=== PATIENT | male | born 1950 | race African-American/Black ===

== ENCOUNTER 2016-08-25 06:46 | Observation (INO) | payer MEDICARE, OTHER ==
[2016-08-25] MEDS ORDERED: ASPIRIN 81 MG TABLET, CHEWABLE PO ONE ×2 (06:56→14:00)
[2016-08-25 08:03] LABS: ABSOLUTE EOSINOPHILS # (AUTO) 0.2 10^3/uL (0.0-0.6); ABSOLUTE LYMPHOCYTES (AUTO) 2.5 10^3/uL (0.5-4.7); ABSOLUTE MONOCYTES (AUTO) 0.6 10^3/uL (0.1-1.4); ABSOLUTE NEUT (AUTO) 4.3 10^3/uL (1.7-8.2); BASOPHILS % (AUTO) 0.3 % (0-2); EOSINOPHILS % (AUTO) 2.7 % (0-6); HEMATOCRIT 39.4 % (37.9-51.0); HEMOGLOBIN 13.4 g/dL (13.5-17.0); HGB HCT DIFFERENCE 0.8; LYMPHOCYTES % (AUTO) 33.2 % (13-45); MEAN CORPUSCULAR HEMOGLOBIN 30.6 pg (27.0-33.4); MEAN CORPUSCULAR HGB CONC 33.9 g/dL (32.0-36.0); MEAN CORPUSCULAR VOLUME 90 fl (80-97); MONOCYTES % (AUTO) 7.6 % (3-13); RED BLOOD COUNT 4.37 10^6/uL (4.35-5.55); RED CELL DISTRIBUTION WIDTH 12.9 % (11.5-14.0); SEGMENTED NEUTROPHILS % (AUTO) 56.2 % (42-78); WHITE BLOOD COUNT 7.6 10^3/uL (4.0-10.5)
[2016-08-25 08:07] LABS: PROTHROMBIN TIME 12.5 SEC (11.4-15.4)
[2016-08-25 08:20] LABS: ALANINE AMINOTRANSFERASE 53 U/L (21-72); ALBUMIN 3.2 g/dL (3.5-5.0); ALKALINE PHOSPHATASE 127 U/L (38-126); ANION GAP 9 (5-19); ASPARTATE AMINO TRANSFERASE 24 U/L (17-59); BLOOD UREA NITROGEN 17 mg/dL (7-20); CALCIUM 9.8 mg/dL (8.4-10.2); CARBON DIOXIDE 26 mmol/L (22-30); CHLORIDE 104 mmol/L (98-107); CREATINE KINASE 103 U/L (55-170); CREATININE RESULT 0.99 mg/dL (0.52-1.25); GLUCOSE 228 mg/dL (75-110); LIPASE 592.2 U/L (23-300); POTASSIUM 4.2 mmol/L (3.6-5.0); SODIUM 139.4 mmol/L (137-145); TOTAL PROTEIN 6.5 g/dL (6.3-8.2)
[2016-08-25 08:31] LABS: CREATINE KINASE MB 1.44 ng/mL (<4.55); TROPONIN I 0.03 ng/mL
--- NOTE | 2016-08-25 08:42 | ER Document Report ---
ED Cardiac - General Chief Complaint: Chest Pain Stated Complaint: CHEST PAIN Mode of Arrival: Ambulatory Information source: Patient Notes: 65 y/o M presents to ED c/o chest pain. Pt reports non-provoked, sharp pain to left upper chest radiating down to left upper abdomen and across to right upper abdomen. States pain began 3 days ago but worsened this morning when it woke him up from sleep. Denies aggravating or relieving factors. Reports associated mild sob. Pt states had stress test approximately 3 months ago which he states was normal. Reports previous hx of PE and states took Plavix for 4 yrs but is currently only on daily ASA. Denies fever, n/v, hemoptysis, diaphoresis. TRAVEL OUTSIDE OF THE [place] IN LAST 30 DAYS: No - HPI Patient complains to provider of: Chest pain Was the onset of pain: Gradual Is the pain a: New problem Severity now: None Severity at worst: Moderate Pain level currently: Denies Chest pain precipitating factors: At Rest Cardiac risk factors: Diabetes, Hypertension, Hx [place] Positive cardiac history: Yes Exacerbated by: Denies Relieved by: Nothing Similar symptoms previously: Yes Recently seen / treated by doctor: No - Related Data Allergies/Adverse Reactions: No Known Allergies Allergy (Verified 08/25/16 06:48) Home Medications: Current Home Medications Empagliflozin [Jardiance] 25 mg PO DAILY 08/25/16 [History] Pregabalin [Lyrica 100 mg Capsule] 100 mg PO BID 08/25/16 [History] Past Medical History - General Information source: Patient - Social History Smoking Status: Never Smoker Frequency of alcohol use: Rare Drug Abuse: None Lives with: Family Family History: DM, Malignancy - Past Medical History Cardiac Medical History: Reports: Hx Congestive Heart Failure, Hx Heart Attack - mid 1989, Hx Hypercholesterolemia, Hx Hypertension - on meds Denies: Hx Atrial Fibrillation, Hx Coronary Artery Disease, Hx Peripheral Vascular Disease, Hx Heart Murmur Pulmonary Medical History: Reports: Hx Sleep Apnea Denies: Hx Asthma, Hx Bronchitis, Hx COPD - sleep apnea/cpap, Hx Pneumonia, Hx Tuberculosis Neurological Medical History: Denies: Hx Cerebrovascular Accident, Hx Seizures Endocrine Medical History: Reports: Hx Diabetes Mellitus Type 1, Hx Diabetes Mellitus Type 2, Hx Hypothyroidism. Denies: Hx Graves' Disease, Hx Hyperthyroidism Renal/ Medical History: Denies: Hx Benign Prostatic Hyperplasia, Hx End Stage Renal Disease, Hx Kidney Stones, Hx Peritoneal Dialysis GI Medical History: Denies: Hx Crohn's Disease, Hx Gastroesophageal Reflux Disease, Hx Hiatal Hernia, Hx Irritable Bowel, Hx Liver Failure, Hx Ulcer Musculoskeltal Medical History: Denies Hx Arthritis, Denies Hx Fibromyalgia, Denies Hx Multiple Sclerosis, Denies Hx Muscular Dystrophy Psychiatric Medical History: Denies: Hx Dementia, Hx Depression Traumatic Medical History: Denies: Hx Fractures Past Surgical History: Reports: Hx Cardiac Catheterization, Hx Cardiac Surgery - cath, Hx Cholecystectomy, Hx Orthopedic Surgery - right knee. Denies: Hx Colostomy, Hx Pacemaker - Immunizations Immunizations up to date: Yes Hx Diphtheria, Pertussis, Tetanus Vaccination: Yes Review of Systems - Review of Systems Constitutional: No symptoms reported EENT: No symptoms reported Cardiovascular: See HPI Respiratory: See HPI Gastrointestinal: See HPI Genitourinary: No symptoms reported Male Genitourinary: No symptoms reported Musculoskeletal: No symptoms reported Skin: No symptoms reported Hematologic/Lymphatic: No symptoms reported Neurological/Psychological: No symptoms reported -: Yes All other systems reviewed and negative Physical Exam - Vital signs Vitals: Temp Pulse BP Pulse Ox 97.9 F 74 144/82 H 95 08/25/16 06:58 08/25/16 06:58 08/25/16 06:58 08/25/16 06:58 Interpretation: Normal - General General appearance: Appears well, Alert In distress: None - HEENT Head: Normocephalic, Atraumatic Eyes: Normal Pupils: PERRL - Respiratory Respiratory status: No respiratory distress Chest status: Nontender Breath sounds: Normal - CTAB Chest palpation: Normal - Cardiovascular Rhythm: Regular Heart sounds: Normal auscultation Murmur: No Pulses: Normal: Radial, Posterior tibial, Dorsalis pedis Normal capillary refill: Yes - Abdominal Inspection: Normal Distension: No distension Bowel sounds: Normal Tenderness: Tender - Mild tenderness to palpation to left and mid upper abdominal area.. No: McBurney's point, Warner's sign, Guarding, Rebound, Other Organomegaly: No organomegaly - Back Back: Normal, Nontender - Extremities General upper extremity: Normal inspection, Nontender, Normal color, Normal ROM , Normal temperature General lower extremity: Normal inspection, Nontender, Normal color, Normal ROM , Normal temperature, Normal weight bearing. No: Reji's sign - Neurological Neuro grossly intact: Yes Cognition: Normal Orientation: AAOx4 [place] Coma Scale Eye Opening: Spontaneous [place] Coma Scale Verbal: Oriented [place] Coma Scale Motor: Obeys Commands [place] Coma Scale Total: 15 Speech: Normal Motor strength normal: LUE, RUE, LLE, RLE Sensory: Normal - Psychological Associated symptoms: Normal affect, Normal mood - Skin Skin Temperature: Warm Skin Moisture: Dry Skin Color: Normal Skin Turgor: Elastic Course - Re-evaluation Re-evalutation: 08/25/16 11:00 Patient hemodynamically stable, in no distress. Patient presentation and findings discussed with patient's primary care provider Dr. Mendoza who agrees to assume care and admit to [facility] at this time. Findings and plan discussed with patient and who verbalized understanding and agree with plan. - Vital Signs Vital signs: Temp Pulse Resp BP Pulse Ox 97.5 F 74 18 158/92 H 94 08/25/16 12:52 08/25/16 06:58 08/25/16 12:52 08/25/16 12:52 08/25/16 12:52 - Laboratory Result Diagrams: 08/25/16 07:52 08/25/16 07:52 Laboratory results interpreted by me: 08/25/16 08/25/16 07:52 07:52 Hgb 13.4 L Glucose 228 H Alkaline Phosphatase 127 H Albumin 3.2 L Lipase 592.2 H - Diagnostic Test Radiology reviewed: Image reviewed, Reports reviewed - EKG Interpretation by Hi EKG shows normal: Sinus rhythm, [place], Intervals, QRS Complexes Rate: Normal Rhythm: NSR, APC's [place]/QRS: RBBB When compared to previous EKG there are: No significant change Discharge - Discharge Clinical Impression: Chest pain Qualifiers: Chest pain type: other chest pain Qualified Code(s): R07.89 - Other chest pain Condition: Stable Disposition: ADMITTED INPATIENT Admitting Provider: Reji Unit Admitted: [facility]
--- NOTE | 2016-08-25 10:21 | EKG REPORT ---
SEVERITY:- ABNORMAL ECG - SINUS RHYTHM MULTIPLE ATRIAL PREMATURE COMPLEXES RIGHT BUNDLE BRANCH BLOCK : Confirmed by: Nanci Centeno 25-Aug-2016 10:20:41
[2016-08-25] MEDS ORDERED: DEXTROSE 5%-NORMAL SALINE 1,000 ML IV PRN (13:17)
[2016-08-25] MEDS ORDERED: PREGABALIN 100 MG CAPSULE PO SCH (13:30)
[2016-08-25] MEDS ORDERED: (PENDING PHARMACY ID) (Alogliptin Benz/Pioglitazone [Oseni 25-30 Mg Tablet] 1 TAB) PO SCH (13:30)
[2016-08-25] MEDS ORDERED: INSULIN DETEMIR 100 UNIT/ML 3 ML PEN SUBCUT SCH (13:30)
[2016-08-25] MEDS ORDERED: ASPIRIN 81 MG TABLET, CHEWABLE PO SCH (13:30)
[2016-08-25] MEDS ORDERED: (PENDING PHARMACY ID) (Cholecalciferol (Vitamin D3) [Vitamin D3] 50,000 UNIT) PO SCH (13:30)
[2016-08-25] MEDS ORDERED: (PENDING PHARMACY ID) (Levothyroxine Sodium [Synthroid] 300 MCG) PO SCH (13:30)
--- NOTE | 2016-08-25 13:50 | PDOC H&P ---
History of Present Illness Admission Date/PCP: 08/25/16 11:18 RADHA BROOKS, History of Present Illness: HASEEB YAO JR is a 65 year old male, he came to the emergency room because of 3- day history of chest pain, the chest pain is not provoked by activity or emotion and it is not relieved by rest, the chest pain is nondescript, there was involvement of the upper abdomen. the upper abdominal pain was aggravated with food and water intake , because of the aggravation of the abdominal pain with food intake. He came to emergency room for evaluation of his symptoms. In the emergency room he was evaluated, CT chest was done it was negative for any pulmonary emboli. There is no infiltrate, pneumothorax found on the CTA, he was also found to have elevated serum lipase. CT scan of the abdomen and pelvis was done and it was negative for any acute pathology. Patient have no gallbladder and he does not drink alcohol, his symptoms is more consistent with acute pancreatitis and the most likely etiologies is medication. He will be admitted to the hospital for observation and management of his symptoms. Past Medical History Cardiac Medical History: Reports: Hyperlipidema, Hypertension - on meds Pulmonary Medical History: Reports: Sleep Apnea Endocrine Medical History: Reports: Diabetes Mellitus Type 2, Hypothyroidism, Obesity Past Surgical History Past Surgical History: Reports: Cardiac Catheterization, Cholecystectomy, Orthopedic Surgery - right knee Social History Information Source: Parent Lives with: Family Smoking Status: Never Smoker Frequency of Alcohol Use: None Hx Recreational Drug Use: No Hx Prescription Drug Abuse: No - Advance Directive Resuscitation Status: Full Code Family History Family History: DM, Malignancy Parental Family History Reviewed: Yes Children Family History Reviewed: Yes Sibling(s) Family History Reviewed.: Yes Medication/Allergy Home Medications: Atorvastatin Calcium [Lipitor 80 mg Tablet] 80 mg PO QHS 12/14/11 Aspirin [Aspirin 81 mg Chewable Tablet] 81 mg PO DAILY 12/31/11 Cyanocobalamin (Vitamin B-12) [Cyanocobalamin] 1 mg IJ Q30D 12/31/11 Insulin Detemir [Levemir Insulin 100 units/mL] 25 units SQ QAM 12/31/11 Levothyroxine Sodium [Synthroid] 300 mcg PO DAILY 09/29/12 Carvedilol [Coreg 25 mg Tablet] 25 mg PO Q12 07/20/13 Cholecalciferol (Vitamin D3) [Vitamin D3] 50,000 unit PO ASDIR 07/20/13 Furosemide [Lasix 40 mg Tablet] 40 mg PO DAILY 07/20/13 Alogliptin Rogelio/Pioglitazone [Oseni 25-30 mg Tablet] 1 tab PO DAILY 10/17/13 Empagliflozin [Jardiance] 25 mg PO DAILY 08/25/16 Pregabalin [Lyrica 100 mg Capsule] 100 mg PO BID 08/25/16 Allergies/Adverse Reactions: No Known Allergies Allergy (Verified 08/25/16 06:48) Review of Systems Constitutional: ABSENT: chills, fever(s), headache(s), weight gain, weight loss Eyes: ABSENT: visual disturbances Ears: ABSENT: hearing changes Cardiovascular: PRESENT: chest pain. ABSENT: dyspnea on exertion, edema, orthropnea, palpitations Respiratory: ABSENT: cough, hemoptysis Gastrointestinal: PRESENT: abdominal pain, nausea. ABSENT: constipation, diarrhea, hematemesis, hematochezia, vomiting Genitourinary: ABSENT: dysuria, hematuria Musculoskeletal: ABSENT: joint swelling Integumentary: ABSENT: rash, wounds Neurological: ABSENT: abnormal gait, abnormal speech, confusion, dizziness, focal weakness, syncope Psychiatric: ABSENT: anxiety, depression, homidical ideation, suicidal ideation Endocrine: ABSENT: cold intolerance, heat intolerance, menstrual abnormalities, polydipsia, polyuria Hematologic/Lymphatic: ABSENT: easy bleeding, easy bruising, lymphadenopathy Physical Exam Vital Signs: Temp Pulse Resp BP Pulse Ox 97.5 F 74 18 158/92 H 94 08/25/16 12:52 08/25/16 06:58 08/25/16 12:52 08/25/16 12:52 08/25/16 12:52 Intake & Output 08/24/16 08/25/16 08/26/16 06:59 06:59 06:59 Weight 120.2 kg General appearance: PRESENT: no acute distress, well-developed, well-nourished Head exam: PRESENT: atraumatic, normocephalic Eye exam: PRESENT: conjunctiva pink, EOMI, PERRLA. ABSENT: scleral icterus Ear exam: PRESENT: normal external ear exam Mouth exam: PRESENT: moist, tongue midline Neck exam: PRESENT: full ROM Cardiovascular exam: PRESENT: RRR, +S1, +S2 Pulses: PRESENT: +2 pedal pulses bilateral Vascular exam: PRESENT: normal capillary refill GI/Abdominal exam: PRESENT: normal bowel sounds, soft, tenderness - There is upper abdominal tenderness on deep palpation of the abdomen Rectal exam: PRESENT: deferred Neurological exam: PRESENT: alert, awake, oriented to person, oriented to place , oriented to time, oriented to situation, CN II-XII grossly intact Psychiatric exam: PRESENT: appropriate affect, normal mood Skin exam: PRESENT: dry, intact, warm Results Impressions: Chest X-Ray 08/25/16 06:56 IMPRESSION: NO ACUTE RADIOGRAPHIC FINDING IN THE CHEST. Abdomen/Pelvis CT 08/25/16 07:38 IMPRESSION: No acute abnormality in the abdomen or pelvis. Chest/Abdomen CTA 08/25/16 07:38 IMPRESSION: No PE. Assessment & Plan - Diagnosis (1) Acute pancreatitis Qualifiers: Pancreatitis type: unspecified pancreatitis type Acute pancreatitis complication: unspecified Qualified Code(s): K85.90 - Acute pancreatitis without necrosis or infection, unspecified Is this a current diagnosis for this admission?: YesPlan: Patient symptoms and signs is more consistent with acute pancreatitis, he'll be kept nothing by mouth, we will continue to monitor the pancreas enzymes, lipase , we will treat with intravenous fluids. 5% dextrose normal saline at 100 mL per hour (2) Chest pain Qualifiers: Chest pain type: other chest pain Qualified Code(s): R07.89 - Other chest pain; R07.8 - Other chest pain Is this a current diagnosis for this admission?: YesPlan: The chest pain is most likely non-cardiac chest pain. It is more consistent with symptom from the pancreas, so far 2 sets of cardiac enzymes are negative for acute [place], 1 set is pending (3) Hypothyroidism Qualifiers: Hypothyroidism type: unspecified Qualified Code(s): E03.9 - Hypothyroidism, unspecified Is this a current diagnosis for this admission?: YesPlan: He will continue his present medication including Synthroid and other medications by mouth
[2016-08-25] MEDS ORDERED: ENOXAPARIN SODIUM INJ 40 MG/0.4 ML DISP.SYRIN SUBCUT ONE (15:00)
[2016-08-25] MEDS ORDERED: INSULIN DETEMIR 100 UNIT/ML 3 ML PEN SUBCUT ONE (15:00)
[2016-08-25] MEDS ORDERED: LEVOTHYROXINE SODIUM 0.15 MG TABLET PO ONE (15:00)
[2016-08-25] MEDS ORDERED: LEVOTHYROXINE SODIUM 0.025 MG TABLET PO ONE (15:00)
[2016-08-25] MEDS ORDERED: FUROSEMIDE 40 MG TABLET PO ONE (15:00)
[2016-08-25] MEDS ORDERED: PREGABALIN 100 MG CAPSULE PO ONE (15:00)
[2016-08-25] MEDS ORDERED: CARVEDILOL 12.5 MG TABLET PO ONE (15:00)
[2016-08-25 15:08] LABS: CREATINE KINASE MB 1.46 ng/mL (<4.55); TROPONIN I 0.028 ng/mL
[2016-08-25 15:27] LABS: THYROID STIMULATING HORMONE 7.42 uIU/mL (0.47-4.68)
[2016-08-25 18:25] LABS: APPEARANCE,URINE CLEAR; BILIRUBIN,URINE NEGATIVE (NEGATIVE); GLUCOSE, URINE >=500 mg/dL (NEGATIVE); KETONES,URINE NEGATIVE (NEGATIVE); LEUKOCYTE ESTERASE,URINE NEGATIVE (NEGATIVE); NITRITE,URINE NEGATIVE (NEGATIVE); PROTEIN,URINE 30 mg/dL (NEGATIVE); URINE SPECIFIC GRAVITY 1.043; UROBILINOGEN,URINE NEGATIVE mg/dL (<2.0)
[2016-08-25 21:04] LABS: CREATINE KINASE MB 1.17 ng/mL (<4.55); TROPONIN I 0.024 ng/mL
[2016-08-25] MEDS ORDERED: ATORVASTATIN CALCIUM 80 MG TABLET PO SCH (22:00)
[2016-08-25] MEDS: CARVEDILOL 12.5 MG TABLET PO SCH (22:33)
[2016-08-25] MEDS: PREGABALIN 100 MG CAPSULE PO SCH (22:34)
[2016-08-26 03:08] LABS: ABSOLUTE EOSINOPHILS # (AUTO) 0.2 10^3/uL (0.0-0.6); ABSOLUTE LYMPHOCYTES (AUTO) 2.5 10^3/uL (0.5-4.7); ABSOLUTE MONOCYTES (AUTO) 0.5 10^3/uL (0.1-1.4); ABSOLUTE NEUT (AUTO) 2.9 10^3/uL (1.7-8.2); BASOPHILS % (AUTO) 0.4 % (0-2); EOSINOPHILS % (AUTO) 3.9 % (0-6); HEMATOCRIT 38.4 % (37.9-51.0); HEMOGLOBIN 12.8 g/dL (13.5-17.0); LYMPHOCYTES % (AUTO) 40.4 % (13-45); MEAN CORPUSCULAR HEMOGLOBIN 30.4 pg (27.0-33.4); MEAN CORPUSCULAR HGB CONC 33.4 g/dL (32.0-36.0); MEAN CORPUSCULAR VOLUME 91 fl (80-97); MONOCYTES % (AUTO) 8.8 % (3-13); RED BLOOD COUNT 4.21 10^6/uL (4.35-5.55); RED CELL DISTRIBUTION WIDTH 12.8 % (11.5-14.0); SEGMENTED NEUTROPHILS % (AUTO) 46.5 % (42-78); WHITE BLOOD COUNT 6.2 10^3/uL (4.0-10.5)
[2016-08-26 03:29] LABS: ALANINE AMINOTRANSFERASE 46 U/L (21-72); ALBUMIN 2.8 g/dL (3.5-5.0); ALKALINE PHOSPHATASE 114 U/L (38-126); AMYLASE 58 U/L (30-110); ANION GAP 7 (5-19); ASPARTATE AMINO TRANSFERASE 23 U/L (17-59); BILIRUBIN,TOTAL 1.2 mg/dL (0.2-1.3); BLOOD UREA NITROGEN 14 mg/dL (7-20); CALCIUM 9.6 mg/dL (8.4-10.2); CARBON DIOXIDE 27 mmol/L (22-30); CHLORIDE 107 mmol/L (98-107); CREATINE KINASE 57 U/L (55-170); CREATININE RESULT 0.89 mg/dL (0.52-1.25); GLUCOSE 203 mg/dL (75-110); LIPASE 327.8 U/L (23-300); POTASSIUM 4.2 mmol/L (3.6-5.0); SODIUM 140.5 mmol/L (137-145); TOTAL PROTEIN 5.9 g/dL (6.3-8.2)
[2016-08-26 03:39] LABS: CREATINE KINASE MB 0.73 ng/mL (<4.55); TROPONIN I 0.02 ng/mL
[2016-08-26] MEDS ORDERED: ENOXAPARIN SODIUM INJ 40 MG/0.4 ML DISP.SYRIN SUBCUT SCH (08:00)
[2016-08-26] MEDS ORDERED: INSULIN DETEMIR 100 UNIT/ML 3 ML PEN SUBCUT SCH (08:00)
--- NOTE | 2016-08-26 08:27 | EKG REPORT ---
SEVERITY:- ABNORMAL ECG - SINUS RHYTHM MULTIPLE ATRIAL PREMATURE COMPLEXES RIGHT BUNDLE BRANCH BLOCK INFERIOR INFARCT, AGE INDETERMINATE : Confirmed by: Nanci Centeno 26-Aug-2016 08:25:58
[2016-08-26] MEDS ORDERED: ASPIRIN 81 MG TABLET, CHEWABLE PO SCH (10:00)
[2016-08-26] MEDS ORDERED: FUROSEMIDE 40 MG TABLET PO SCH (10:00)
[2016-08-26] MEDS ORDERED: (PENDING PHARMACY ID) (Empagliflozin [Jardiance] 25 MG) PO SCH (10:00)
[2016-08-26] MEDS ORDERED: LEVOTHYROXINE SODIUM 0.025 MG TABLET PO SCH (10:00)
[2016-08-26] MEDS ORDERED: LEVOTHYROXINE SODIUM 0.15 MG TABLET PO SCH (10:00)
[2016-08-26] MEDS: CARVEDILOL 12.5 MG TABLET PO SCH (10:30)
[2016-08-26] MEDS: PREGABALIN 100 MG CAPSULE PO SCH (10:31)
[2016-08-26 13:41] VITALS: BP 158/92
--- NOTE | 2016-08-26 13:47 | PDOC DISCHARGE SUMMARY ---
General - Admit/Disc Date/PCP Admission Date/Primary Care Provider: 08/25/16 12:39 RADHA BROOKS, Discharge Date: 08/26/16 - Discharge Diagnosis (1) Acute pancreatitis Is this a current diagnosis for this admission?: Yes (2) Chest pain Is this a current diagnosis for this admission?: Yes (3) Hypothyroidism Is this a current diagnosis for this admission?: Yes - Additional Information Resuscitation Status: Full Code Discharge Activity: Activity As Tolerated, Balance Activity w/Rest Home Medications: Atorvastatin Calcium [Lipitor 80 mg Tablet] 80 mg PO QHS 12/14/11 Aspirin [Aspirin 81 mg Chewable Tablet] 81 mg PO DAILY 12/31/11 Cyanocobalamin (Vitamin B-12) [Cyanocobalamin] 1 mg IJ Q30D 12/31/11 Insulin Detemir [Levemir Insulin 100 units/mL] 25 units SQ QAM 12/31/11 Levothyroxine Sodium [Synthroid] 325 mcg PO DAILY 09/29/12 Carvedilol [Coreg 25 mg Tablet] 25 mg PO Q12 07/20/13 Cholecalciferol (Vitamin D3) [Vitamin D3] 50,000 unit PO ASDIR 07/20/13 Furosemide [Lasix 40 mg Tablet] 40 mg PO DAILY 07/20/13 Alogliptin Rogelio/Pioglitazone [Oseni 25-30 mg Tablet] 1 tab PO DAILY 10/17/13 Empagliflozin [Jardiance] 25 mg PO DAILY 08/25/16 Pregabalin [Lyrica 100 mg Capsule] 100 mg PO BID 08/25/16 History of Present Illness History of Present Illness: AHSEEB YAO JR is a 65 year old male, he came to the emergency room because of 3- day history of chest pain, the chest pain is not provoked by activity or emotion and it is not relieved by rest, the chest pain is nondescript, there was involvement of the upper abdomen. the upper abdominal pain was aggravated with food and water intake , because of the aggravation of the abdominal pain with food intake. He came to emergency room for evaluation of his symptoms. In the emergency room he was evaluated, CT chest was done it was negative for any pulmonary emboli. There is no infiltrate, pneumothorax found on the CTA, he was also found to have elevated serum lipase. CT scan of the abdomen and pelvis was done and it was negative for any acute pathology. Patient have no gallbladder and he does not drink alcohol, his symptoms is more consistent with acute pancreatitis and the most likely etiologies is medication. He will be admitted to the hospital for observation and management of his symptoms. Hospital Course Hospital Course: Patient was admitted for observation because of abdominal pain and chest pain due to acute pancreatitis, on admission, the serum lipase was 592, this serum lipase today's 327, which is near normal. He was kept nothing by mouth for 24 hours and he was treated with IV fluids. 5% dextrose normal saline. Physical Exam Vital Signs: Temp Pulse Resp BP Pulse Ox 98.0 F 64 20 158/92 H 91 L 08/26/16 13:39 08/26/16 13:39 08/26/16 13:39 08/26/16 13:39 08/26/16 13:39 Intake & Output 08/25/16 08/26/16 08/27/16 06:59 06:59 06:59 Intake Total 1880 0 Output Total 500 Balance 1380 0 Weight 111.2 kg General appearance: PRESENT: no acute distress Head exam: PRESENT: atraumatic, normocephalic Eye exam: PRESENT: PERRLA Mouth exam: PRESENT: moist Neck exam: PRESENT: full ROM Respiratory exam: PRESENT: clear to auscultation sharlene Cardiovascular exam: PRESENT: RRR, +S1, +S2 GI/Abdominal exam: PRESENT: normal bowel sounds, soft Rectal exam: PRESENT: deferred Neurological exam: PRESENT: alert, awake, oriented to person, oriented to place , oriented to time, oriented to situation, CN II-XII grossly intact Psychiatric exam: PRESENT: appropriate affect, normal mood Skin exam: PRESENT: dry, intact, warm Results Laboratory Results: 08/26/16 03:00 08/26/16 03:00 08/25/16 08/25/16 08/25/16 14:23 14:23 16:30 WBC RBC Hgb Hct MCV MCH MCHC RDW Plt Count Seg Neutrophils % Lymphocytes % Monocytes % Eosinophils % Basophils % Absolute Neutrophils Absolute Lymphocytes Absolute Monocytes Absolute Eosinophils Absolute Basophils Sodium Potassium Chloride Carbon Dioxide Anion Gap BUN Creatinine Est GFR ( Amer) Est GFR (Non-Af Amer) Glucose Calcium Total Bilirubin AST ALT Alkaline Phosphatase Ammonia < 8.7 L Total Protein Albumin Amylase Lipase TSH 7.42 H Free T4 0.45 L Urine Color STRAW Urine Appearance CLEAR Urine pH 6.0 Ur Specific [place] 1.043 Urine Protein 30 H Urine Glucose (UA) >=500 H Urine Ketones NEGATIVE Urine Blood NEGATIVE Urine Nitrite NEGATIVE Ur Leukocyte Esterase NEGATIVE Urine WBC (Auto) 1 08/26/16 08/26/16 03:00 03:00 WBC 6.2 RBC 4.21 L Hgb 12.8 L Hct 38.4 MCV 91 MCH 30.4 MCHC 33.4 RDW 12.8 Plt Count 219 Seg Neutrophils % 46.5 Lymphocytes % 40.4 Monocytes % 8.8 Eosinophils % 3.9 Basophils % 0.4 Absolute Neutrophils 2.9 Absolute Lymphocytes 2.5 Absolute Monocytes 0.5 Absolute Eosinophils 0.2 Absolute Basophils 0.0 Sodium 140.5 Potassium 4.2 Chloride 107 Carbon Dioxide 27 Anion Gap 7 BUN 14 Creatinine 0.89 Est GFR ( Amer) > 60 Est GFR (Non-Af Amer) > 60 Glucose 203 H Calcium 9.6 Total Bilirubin 1.2 AST 23 ALT 46 Alkaline Phosphatase 114 Ammonia Total Protein 5.9 L Albumin 2.8 L Amylase 58 Lipase 327.8 H TSH Free T4 Urine Color Urine Appearance Urine pH Ur Specific [place] Urine Protein Urine Glucose (UA) Urine Ketones Urine Blood Urine Nitrite Ur Leukocyte Esterase Urine WBC (Auto) 08/25/16 08/25/16 08/25/16 14:23 14:23 20:19 Creatine Kinase 86 74 CK-MB (CK-2) 1.46 Troponin I 0.028 NT-Pro-B Natriuret Pep 30 08/25/16 08/26/16 08/26/16 20:19 03:00 03:00 Creatine Kinase 57 CK-MB (CK-2) 1.17 0.73 Troponin I 0.024 0.020 NT-Pro-B Natriuret Pep Impressions: Chest X-Ray 08/25/16 06:56 IMPRESSION: NO ACUTE RADIOGRAPHIC FINDING IN THE CHEST. Abdomen/Pelvis CT 08/25/16 07:38 IMPRESSION: No acute abnormality in the abdomen or pelvis. Chest/Abdomen CTA 08/25/16 07:38 IMPRESSION: No PE.
[2016-08-27] MEDS ORDERED: ERGOCALCIFEROL (VITAMIN D2) 50000 UNIT (1.25 MG) CAPSULE PO SCH (10:00)
[2016-08-27] MEDS ORDERED: (PENDING PHARMACY ID) (Cholecalciferol (Vitamin D3) [Vitamin D3] 50,000 UNIT) PO SCH (13:46)
[2016-08-28 15:01] LABS: URINE BARBITURATES SCREEN NEGATIVE; URINE METHADONE SCREEN NEGATIVE; URINE PHENCYCLIDINE SCREEN NEGATIVE
[2016-09-20] MEDS ORDERED: CYANOCOBALAMIN (VITAMIN B-12) INJ 1000 MCG/1 ML VIAL IM SCH (14:00)
== END 2016-08-26 14:44 | disposition home or self-care (01) ==
LOC: ER 06:46 → UNDOADMIN 11:18 → EH 11:18 → 3S 12:31 → INTOOBSV 12:39 → 3S 12:39 → EH 12:39
PROVIDERS: ADMIT Internal Medicine; ATTEND Internal Medicine
DX: K85.90 Acute pancreatitis without necrosis or infection, unspecified (principal); R07.9 Chest pain, unspecified; E03.9 Hypothyroidism, unspecified; E78.5 Hyperlipidemia, unspecified; I10 Essential (primary) hypertension; G47.30 Sleep apnea, unspecified; E11.9 Type 2 diabetes mellitus without complications; E66.9 Obesity, unspecified; Z68.39 Body mass index [BMI] 39.0-39.9, adult; Z79.4 Long term (current) use of insulin
CPT/HCPCS: 93005 ×2; 99285; 36415 ×2; 87040; 87086; 84439; 82553 ×2; 82962 ×2; 82140; 82150; 82550 ×2; 83690 ×2; 83735; 84443; 85025 ×2; 85610; 80076; 80048; 80053; 81001; 84484 ×2; 80307; 83036; 83880; 71010; 71275; 74177; 93010; G0378 ×2; A9270 ×14; J1650 ×2; J1815

== ENCOUNTER 2016-09-02 23:59 | Emergency (ER) | payer MEDICARE, OTHER ==
[2016-09-03 01:38] LABS: ABSOLUTE EOSINOPHILS # (AUTO) 0.2 10^3/uL (0.0-0.6); ABSOLUTE LYMPHOCYTES (AUTO) 2.7 10^3/uL (0.5-4.7); ABSOLUTE MONOCYTES (AUTO) 0.7 10^3/uL (0.1-1.4); ABSOLUTE NEUT (AUTO) 5.9 10^3/uL (1.7-8.2); BASOPHILS % (AUTO) 0.4 % (0-2); EOSINOPHILS % (AUTO) 2.1 % (0-6); HEMATOCRIT 41.5 % (37.9-51.0); HEMOGLOBIN 13.3 g/dL (13.5-17.0); HGB HCT DIFFERENCE -1.6; LYMPHOCYTES % (AUTO) 28.3 % (13-45); MEAN CORPUSCULAR HEMOGLOBIN 29.6 pg (27.0-33.4); MEAN CORPUSCULAR HGB CONC 32.1 g/dL (32.0-36.0); MEAN CORPUSCULAR VOLUME 92 fl (80-97); MONOCYTES % (AUTO) 7.5 % (3-13); RED BLOOD COUNT 4.51 10^6/uL (4.35-5.55); RED CELL DISTRIBUTION WIDTH 13.3 % (11.5-14.0); SEGMENTED NEUTROPHILS % (AUTO) 61.7 % (42-78); WHITE BLOOD COUNT 9.5 10^3/uL (4.0-10.5)
[2016-09-03 02:05] LABS: APPEARANCE,URINE CLEAR; BILIRUBIN,URINE NEGATIVE (NEGATIVE); GLUCOSE, URINE >=500 mg/dL (NEGATIVE); KETONES,URINE NEGATIVE (NEGATIVE); LEUKOCYTE ESTERASE,URINE NEGATIVE (NEGATIVE); NITRITE,URINE NEGATIVE (NEGATIVE); PROTEIN,URINE 100 mg/dL (NEGATIVE); URINE SPECIFIC GRAVITY 1.031
[2016-09-03 02:06] LABS: ALANINE AMINOTRANSFERASE 47 U/L (21-72); ALBUMIN 3.4 g/dL (3.5-5.0); ALKALINE PHOSPHATASE 127 U/L (38-126); ANION GAP 10 (5-19); ASPARTATE AMINO TRANSFERASE 35 U/L (17-59); BILIRUBIN,TOTAL 1.2 mg/dL (0.2-1.3); BLOOD UREA NITROGEN 19 mg/dL (7-20); CALCIUM 10.2 mg/dL (8.4-10.2); CARBON DIOXIDE 26 mmol/L (22-30); CHLORIDE 105 mmol/L (98-107); CREATININE RESULT 0.86 mg/dL (0.52-1.25); GLUCOSE 218 mg/dL (75-110); LIPASE 412.6 U/L (23-300); POTASSIUM 4.5 mmol/L (3.6-5.0); SODIUM 140.8 mmol/L (137-145); TOTAL PROTEIN 6.9 g/dL (6.3-8.2)
[2016-09-03] MEDS ORDERED: METOCLOPRAMIDE HCL ORAL SOLN 10 MG/10 ML UDCUP PO ONE (02:49)
[2016-09-03] MEDS ORDERED: MAG HYDROX/AL HYDROX/SIMETH SUSP 30 ML UDCUP PO ONE (02:49)
[2016-09-03] MEDS ORDERED: LIDOCAINE 2% VISCOUS SOLN 20 ML UDCUP PO ONE (02:49)
--- NOTE | 2016-09-03 02:49 | ER Document Report ---
ED GI/ - General Chief Complaint: Abdominal Pain Stated Complaint: ABDOMINAL PAIN Time seen by provider: 02:49 Mode of Arrival: Ambulatory Information source: Patient TRAVEL OUTSIDE OF THE [place] IN LAST 30 DAYS: No - HPI Patient complains to provider of: Abdominal pain Onset: Last week Timing/Duration: Intermittent, Waxing and waning Quality of pain: Achy, Dull Severity at maximum: Moderate Severity in ED: Moderate Pain Level: 2 Location: Epigastric, LUQ Associated symptoms: Nausea Exacerbated by: Food Relieved by: Denies Similar symptoms previously: Yes Recently seen / treated by doctor: Yes Notes: 09/03/16 03:24 Patient is a 65-year-old male presenting to the emergency room for complaints of pain in the upper abdomen, mainly in the epigastric area with some radiation to the left upper quadrant, it's been going on since last week with intermittent waxing and waning, this evening he ate some meat loaf and turkey and then drank a large glass of water which seemed to worsen his symptoms, he denies any vomiting, no fever, symptoms are dull and achy in nature, and he reports that is worsened with deep breaths as well, patient was previously seen in this emergency room last week and then also seen by his primary care provider and diagnosed with mild pancreatitis - Related Data Allergies/Adverse Reactions: No Known Allergies Allergy (Verified 08/25/16 06:48) Past Medical History - General Information source: Patient - Social History Smoking Status: Unknown if Ever Smoked Family History: DM, Malignancy Patient has suicidal ideation: No Patient has homicidal ideation: No - Past Medical History Cardiac Medical History: Reports: Hx Congestive Heart Failure, Hx Heart Attack - mid 1989, Hx Hypercholesterolemia, Hx Hypertension - on meds Denies: Hx Atrial Fibrillation, Hx Coronary Artery Disease, Hx Peripheral Vascular Disease, Hx Heart Murmur Pulmonary Medical History: Reports: Hx Sleep Apnea Denies: Hx Asthma, Hx Bronchitis, Hx COPD - sleep apnea/cpap, Hx Pneumonia, Hx Tuberculosis Neurological Medical History: Denies: Hx Cerebrovascular Accident, Hx Seizures Endocrine Medical History: Reports: Hx Diabetes Mellitus Type 1, Hx Diabetes Mellitus Type 2, Hx Hypothyroidism. Denies: Hx Graves' Disease, Hx Hyperthyroidism Renal/ Medical History: Denies: Hx Benign Prostatic Hyperplasia, Hx End Stage Renal Disease, Hx Kidney Stones, Hx Peritoneal Dialysis GI Medical History: Denies: Hx Crohn's Disease, Hx Gastroesophageal Reflux Disease, Hx Hiatal Hernia, Hx Irritable Bowel, Hx Liver Failure, Hx Ulcer Musculoskeltal Medical History: Denies Hx Arthritis, Denies Hx Fibromyalgia, Denies Hx Multiple Sclerosis, Denies Hx Muscular Dystrophy Psychiatric Medical History: Denies: Hx Dementia, Hx Depression Traumatic Medical History: Denies: Hx Fractures Past Surgical History: Reports: Hx Cardiac Catheterization, Hx Cardiac Surgery - cath, Hx Cholecystectomy, Hx Orthopedic Surgery - right knee. Denies: Hx Colostomy, Hx Pacemaker - Immunizations Immunizations up to date: Yes Hx Diphtheria, Pertussis, Tetanus Vaccination: Yes Review of Systems - Review of Systems Constitutional: No symptoms reported. denies: Fever EENT: No symptoms reported Cardiovascular: No symptoms reported Respiratory: No symptoms reported Gastrointestinal: Abdominal pain, Nausea. denies: Diarrhea, Vomiting Genitourinary: No symptoms reported Male Genitourinary: No symptoms reported Musculoskeletal: No symptoms reported Skin: No symptoms reported Hematologic/Lymphatic: No symptoms reported Neurological/Psychological: No symptoms reported -: Yes All other systems reviewed and negative Physical Exam - Vital signs Vitals: Temp Pulse BP Pulse Ox 98.1 F 83 162/94 H 94 09/03/16 00:06 09/03/16 00:06 09/03/16 00:06 09/03/16 00:06 Interpretation: Normal - General General appearance: Appears well, Alert - HEENT Head: Normocephalic, Atraumatic Eyes: Normal Pupils: PERRL - Respiratory Respiratory status: No respiratory distress Chest status: Nontender Breath sounds: Normal Chest palpation: Normal - Cardiovascular Rhythm: Regular Heart sounds: Normal auscultation Murmur: No - Abdominal Inspection: Normal Distension: No distension Bowel sounds: Normal Tenderness: Tender - Epigastric Organomegaly: No organomegaly - Back Back: Normal, Nontender - Extremities General upper extremity: Normal inspection, Nontender, Normal color, Normal ROM , Normal temperature General lower extremity: Normal inspection, Nontender, Normal color, Normal ROM , Normal temperature, Normal weight bearing. No: Reji's sign - Neurological Neuro grossly intact: Yes Cognition: Normal Orientation: AAOx4 [place] Coma Scale Eye Opening: Spontaneous [place] Coma Scale Verbal: Oriented [place] Coma Scale Motor: Obeys Commands [place] Coma Scale Total: 15 Speech: Normal Motor strength normal: LUE, RUE, LLE, RLE Sensory: Normal - Psychological Associated symptoms: Normal affect, Normal mood - Skin Skin Temperature: Warm Skin Moisture: Dry Skin Color: Normal Course - Re-evaluation Re-evalutation: 09/03/16 03:26 Patient's lipase today is for 12, glucose is 218 otherwise lab values are unremarkable, patient's pain is in the epigastric region and this is also where he is tender, symptoms were worsened after food intake, I also reviewed his CT scan and a CTA that were performed on 08/25/2016 which showed no inflammation to the pancreas and no other abnormalities to explain patient's symptoms, she will be provided with a GI cocktail for possible gastritis at which time he will be reevaluated and likely discharged home 09/03/16 03:42 Patient reports no change in symptoms with GI cocktail, he was advised that medications including Lipitor and Oseni are known to cause pancreatitis according to adverse reaction profile, therefore he was provided with some pain medication and advised to follow-up with his primary care provider in the next 1 -2 days, he states he does have a follow-up with Dr. Abril Nguyen on Saturday - Vital Signs Vital signs: Temp Pulse Resp BP Pulse Ox 98.1 F 83 162/94 H 94 09/03/16 00:06 09/03/16 00:06 09/03/16 00:06 09/03/16 00:06 - Laboratory Result Diagrams: 09/03/16 01:25 09/03/16 01:25 Laboratory results interpreted by me: 09/03/16 09/03/16 09/03/16 01:25 01:25 01:35 Hgb 13.3 L Glucose 218 H Alkaline Phosphatase 127 H Albumin 3.4 L Lipase 412.6 H Urine Protein 100 H Urine Glucose (UA) >=500 H Urine Urobilinogen 4.0 H Discharge - Discharge Clinical Impression: Acute pancreatitis Qualifiers: Pancreatitis type: unspecified pancreatitis type Acute pancreatitis complication: unspecified Qualified Code(s): K85.90 - Acute pancreatitis without necrosis or infection, unspecified Condition: Stable Disposition: HOME, SELF-CARE Instructions: Abdominal Pain ([facility]), Pancreatitis ([facility]) Additional Instructions: Follow up with your primary care provider in one to 2 days. Return to the emergency room immediately if symptoms worsen or any additional concerns. Prescriptions: Hydrocodone/Acetaminophen [Hydrocodon-Acetaminophen 5-325] 1 each PO Q6 #20 tablet
[2016-09-03] MEDS ORDERED: HYDROCODONE/ACETAMINOPHEN 5-325 MG 6 TAB/DSPK PO PRN (03:43)
[2016-09-03 04:43] VITALS: BP 133/78
== END 2016-09-03 04:39 | disposition home or self-care (01) ==
LOC: ER 23:59
DX: K85.90 Acute pancreatitis without necrosis or infection, unspecified (principal); R10.10 Upper abdominal pain, unspecified; R10.13 Epigastric pain; R11.0 Nausea; I50.9 Heart failure, unspecified; E78.00 Pure hypercholesterolemia, unspecified; I10 Essential (primary) hypertension; E11.9 Type 2 diabetes mellitus without complications; E03.9 Hypothyroidism, unspecified; I25.2 Old myocardial infarction
CPT/HCPCS: 99284; 36415; 83690; 85025; 80053; 81001; J3490; A9270 ×2

== ENCOUNTER 2016-09-12 21:08 | Inpatient (IN) | payer MEDICARE, OTHER ==
--- NOTE | 2016-09-12 21:26 | ER Document Report ---
ED Headache - General Mode of Arrival: Ambulatory Information source: Patient TRAVEL OUTSIDE OF THE [place] IN LAST 30 DAYS: No - HPI Patient complains to provider of: Headache Onset: Just prior to arrival Onset was: Abrupt Timing: Still present Context: Other - see above Associated symptoms: Other - see above <ROSSY MALLOY - Last Filed: 09/13/16 02:06> <TITO FREDERICK - Last Filed: 09/13/16 03:11> - General Stated Complaint: HEADACHE Notes: 66 year old male with history of diabetes presents to the ED complaining of sudden onset right posterior throbbing headache that started just prior to arrival as the patient was walking to his kitchen. Patient states the pain was so bad that it had him in tears and he had to lower himself to his knees. Patient explains that it felt like someone hit him across the head. Patient states that he felt dizzy at the time, and denies blurry vision or neck pain. Patient states that he takes aspirin regularly. (ROSSY MALLOY) - Related Data Allergies/Adverse Reactions: No Known Allergies Allergy (Verified 08/25/16 06:48) Past Medical History - General Information source: Patient - Social History Smoking Status: Unknown if Ever Smoked Family History: DM, Malignancy - Past Medical History Cardiac Medical History: Reports: Hx Congestive Heart Failure, Hx Heart Attack - mid 1989, Hx Hypercholesterolemia, Hx Hypertension - on meds Pulmonary Medical History: Reports: Hx Sleep Apnea Endocrine Medical History: Reports: Hx Diabetes Mellitus Type 1, Hx Diabetes Mellitus Type 2, Hx Hypothyroidism Past Surgical History: Reports: Hx Cardiac Catheterization, Hx Cardiac Surgery - cath, Hx Cholecystectomy, Hx Orthopedic Surgery - right knee - Immunizations Immunizations up to date: Yes Hx Diphtheria, Pertussis, Tetanus Vaccination: Yes <ROSSY MALLOY - Last Filed: 09/13/16 02:06> Review of Systems - Review of Systems Constitutional: No symptoms reported EENT: No symptoms reported. denies: Blurred vision Cardiovascular: See HPI, Dizziness Respiratory: No symptoms reported Gastrointestinal: No symptoms reported Genitourinary: No symptoms reported Male Genitourinary: No symptoms reported Musculoskeletal: No symptoms reported. denies: Neck pain Skin: No symptoms reported Hematologic/Lymphatic: No symptoms reported Neurological/Psychological: See HPI, Headaches - right posterior -: Yes All other systems reviewed and negative <ROSSY MALLOY - Last Filed: 09/13/16 02:06> Physical Exam - General General appearance: Alert In distress: None - HEENT Head: Normocephalic, Atraumatic Eyes: Normal Extraocular movements intact: Yes Pupils: PERRL - Respiratory Respiratory status: No respiratory distress Breath sounds: Normal - Cardiovascular Rhythm: Regular Heart sounds: Normal auscultation - Abdominal Inspection: Normal - Back Back: Normal - Extremities General upper extremity: Normal inspection, Normal ROM, Normal strength General lower extremity: Normal inspection, Normal ROM, Normal strength - Neurological Neuro grossly intact: Yes Cognition: Normal Orientation: AAOx4 [place] Coma Scale Eye Opening: Spontaneous [place] Coma Scale Verbal: Oriented [place] Coma Scale Motor: Obeys Commands [place] Coma Scale Total: 15 Speech: Normal - Psychological Associated symptoms: Normal affect, Normal mood - Skin Skin Temperature: Warm Skin Moisture: Dry Skin Color: Normal <ROSSY MALLOY - Last Filed: 09/13/16 02:06> <TITO FREDERICK - Last Filed: 09/13/16 03:11> - Vital signs Vitals: Temp Pulse Resp BP Pulse Ox 97.6 F 87 18 164/110 H 93 09/12/16 21:25 09/12/16 21:25 09/12/16 21:25 09/12/16 21:25 09/12/16 21:25 Temp Pulse Resp BP Pulse Ox 97.6 F 87 18 164/110 H 93 09/12/16 21:25 09/12/16 21:25 09/12/16 21:25 09/12/16 21:25 09/12/16 21:25 (ROSSY MALLOY) (TITO FREDERICK) Course - Laboratory Result Diagrams: 09/12/16 21:45 09/12/16 21:45 - Consults Dr. Thomas Time consulted: 23:47 <ROSSY MALLOY - Last Filed: 09/13/16 02:06> - Laboratory Result Diagrams: 09/12/16 21:45 09/12/16 21:45 - Diagnostic Test Radiology reviewed: Reports reviewed <TITO FREDERICK - Last Filed: 09/13/16 03:11> - Re-evaluation Re-evalutation: 09/13/16 Patient is a 66-year-old male who comes in complaining of headache. NIH stroke scale is 0. Patient has a new right cerebellar infarct. Discussed with neurology [facility]. Patient is not a candidate for TPA or intervention. 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 This is been discussed at length with the patient and his family. Patient will be admitted to his primary care doctor. Stable time of admission. Again no deficits on exam at this time. (TITO FREDERICK) - Vital Signs Vital signs: Temp Pulse Resp BP Pulse Ox 97.5 F 79 22 H 176/100 H 92 09/13/16 02:00 09/13/16 00:25 09/13/16 01:01 09/13/16 01:01 09/13/16 01:01 (TITO FREDERICK) - Laboratory Laboratory results interpreted by me: 09/12/16 09/12/16 21:45 21:45 RBC 4.22 L Hgb 12.7 L Glucose 218 H Calcium 10.4 H (TITO FREDERICK) - Consults Dr. Thomas Reason for consultation: 09/13/16 23:47 [facility] transfer line called and Dr. Thomas was paged. 09/13/16 23:53 Patient was discussed with Dr. Thomas and he advises no lytics or any other intervention be taken at this time. (ROSSY MALLOY) Critical Care Note - Critical Care Note Total time excluding time spent on procedures (mins): 45 - evaluation and management of headache, concern for CVA, multiple re-evaluations, counseling of patient and family <TITO FREDERICK - Last Filed: 09/13/16 03:11> Discharge <ROSSY MALLOY - Last Filed: 09/13/16 02:06> - Discharge Admitting Provider: [facility] Unit Admitted: [facility] <TITO FREDERICK - Last Filed: 09/13/16 03:11> - Discharge Clinical Impression: New cerebellar infarct Condition: Stable Disposition: ADMITTED INPATIENT Scribe Attestation: 09/13/16 03:09 I personally performed the services described in the documentation, reviewed and edited the documentation which was dictated to the scribe in my presence, and it accurately records my words and actions. (TITO FREDERICK) Scribe Documentation - Scribe Written by Matti:: Matti Escobar, 09/12/2016 21:32 acting as scribe for :: Abdulaziz <ROSSY MALLOY - Last Filed: 09/13/16 02:06> ED NIH Stroke Scale - NIH Stroke Scale When completed:: Before Alteplase *: 1. NIH scale should be completed with appropriate accompanying assessment tools. *: 2. The NIH should reflect what the patient is capable of doing and should not be coached by the clinician. 1a. Level of Consciousness: 0=Alert;keenly responsive -: 1=Drowsy -: 2=Obtunded -: 3=Coma/unresponsive or reflex to noxious stimuli. 1a. Responses: 0 1b. Orientation Questions: a. What month is it? -: b. How old are you? -: 0=Answers both questions correctly. -: 1=Answers one question correctly or patient is intubated or has orotracheal trauma. -: 2=Answers neither question correctly. 1b. Responses: 0 1c. Response to commands: a. Open and close eyes? -: b. Typesetter Perforator Operator and release hand? -: Credit is given despite weakness. Demonstration of task is permitted. Substitute command if hands cannot be used. -: 0=Performs both tasks correctly -: 1=Performs one task correctly -: 2=Performs neither task correctly 1c. Responses: 0 2. Gaze: Establish eye contact and instruct patient to "Follow my finger" -: 0=Normal -: 1=Partial gaze palsy. Gaze is abnormal in one or both eyes, but where forced deviation or total gaze paresis is not present. -: 2=Forced deviation or total gaze paresis. 2. Responses: 0 3. Visual Gross: Sees fingers in all four quadrants. -: 0=No visual loss. -: 1=Partial hemianopsia. -: 2=Complete hemianopsia. -: 3=Bilateral hemianopsia (including Cortical blindness) 3. Responses: 0 4. Facial Movement: Instruct patient to: -: a. Show me your teeth -: b. Raise your eyebrows -: c. Close your eyes -: d. Smile -: 0=Normal symmetrical movement -: 1=Minor paralysis (flattened nasolabial fold, asymmetry on smiling). -: 2=Partial paralysis (total or near total paralysis of lower face). -: 3=Complete paralysis of upper and lower face 4. Responses: 0 5. Motor functions (left arm): Alternate sides and extend each arm with palms down (90 degrees if sitting or 45 degrees for supine). -: 0=No drift;limb holds for full 10 seconds. -: 1=Drift; limb holds but drifts down before full 10 seconds, but does not hit bed. -: 2=Some effort against gravity; limb cannot get to or maintain position. -: 3=No effort against gravity; limb falls. -: 4=No movement. -: UN=Amputation, joint fusion, explain in comments. 5. Responses (left arm): 0 5. Motor Functions (right arm): Alternate sides and extend each arm with palms down (90 degrees if sitting or 45 degrees for supine). -: 0=No drift;limb holds for full 10 seconds. -: 1=Drift; limb holds but drifts down before full 10 seconds, but does not hit bed. -: 2=Some effort against gravity; limb cannot get to or maintain position. -: 3=No effort against gravity; limb falls. -: 4=No movement. -: UN=Amputation, joint fusion, explain in comments. 5. Responses (right arm): 0 6. Motor Functions (left leg): With patient lying supine, alternate sides and extend each leg (30 degrees always while supine). -: 0=No drift, leg holds position for full 5 seconds -: 1=Drift; leg falls before full 5 seconds but does not hit bed. -: 2=Some effort against gravity, leg falls to bed but some effort against gravity. -: 3=No effort against gravity, leg falls to bed immediately. -: 4=No movement. -: UN=Amputation, joint fusion; explain in comments. 6. Responses (left leg): 0 6. Motor Functions (right leg): With patient lying supine, alternate sides and extend each leg (30 degrees always while supine). -: 0=No drift, leg holds position for full 5 seconds -: 1=Drift; leg falls before full 5 seconds but does not hit bed. -: 2=Some effort against gravity, leg falls to bed but some effort against gravity. -: 3=No effort against gravity, leg falls to bed immediately. -: 4=No movement. -: UN=Amputation, joint fusion; explain in comments. 6. Responses (right leg): 0 7. Limb Ataxia: With eyes open instruct patient to: -: a. "Touch your finger to your nose". -: b. "Touch your heel to your jensen" -: 0=Absent -: 1=Present in one limb. -: 2=Present in two limbs. -: UN=Amputation or joint fusion; explain in comments. 7. Responses: 0 8. Sensory: Test sensation using pinprick or noxious stimuli. Test as many body parts as possible. -: 0=Normal;no sensory loss -: 1=Mile to moderate sensory loss (patient feels pin prick but is less sharp on affected side). -: 2=Severe or total sensory loss. 8. Responses: 0 9. Best Language: Instruct patient to: -: a. "Describe what you see in this picture." -: b. "Name the items in this picture." -: c. "Read these sentences." -: 0=No aphasia, normal -: 1=Mild to moderate aphasia. -: 2=Severe aphasia -: 3=Mute, global aphasia, no usable speech or auditory comprehension. 9. Responses: 0 10. Articulation, Dysarthia: Instruct patient to: -: "Read these words" or "Repeat these words" -: 0=Normal -: 1=Mild to moderate; patient may slur some words but can be understood without difficulty. -: 2=Severe; patients speech so slurred as to be unintelligible in the absence of dysphasia. -: UN=Intubated or other physical barrier, explain in comments. 10. Responses: 0 11. Extinction or inattention: 0=No abnormality -: 1= Visual, tactile, auditory, spatial, or personal inattention or extinction to bilateral simulation in one or the sensory modalities. -: 2=Profound benita-inattention or benita-inattention to more than one modality; does not recognize own hand. 11. Responses: 0 Total Score: 0 <TITO FREDERICK - Last Filed: 09/13/16 03:11> ED Alteplase Inc/Exc Criteria - Diagnosis of TIA: -: Patient presented with transient symptoms that are now resolved and no other neurologic findings are currently present. List symptoms in comments. -: Patient is NOT a candidate for tPA. -: Yes -: ____(put name in comment) has been consulted for admission and continued evaluation of risk factor assessment. <TITO FREDERICK - Last Filed: 09/13/16 03:11>
[2016-09-12] MEDS ORDERED: DIAZEPAM 2 MG TABLET PO ONE (21:31)
[2016-09-12 22:03] LABS: ABSOLUTE EOSINOPHILS # (AUTO) 0.2 10^3/uL (0.0-0.6); ABSOLUTE LYMPHOCYTES (AUTO) 2.1 10^3/uL (0.5-4.7); ABSOLUTE MONOCYTES (AUTO) 0.6 10^3/uL (0.1-1.4); ABSOLUTE NEUT (AUTO) 3.7 10^3/uL (1.7-8.2); BASOPHILS % (AUTO) 0.6 % (0-2); HEMATOCRIT 38.9 % (37.9-51.0); HEMOGLOBIN 12.7 g/dL (13.5-17.0); HGB HCT DIFFERENCE -0.8; LYMPHOCYTES % (AUTO) 31.9 % (13-45); MEAN CORPUSCULAR HEMOGLOBIN 30.1 pg (27.0-33.4); MEAN CORPUSCULAR HGB CONC 32.7 g/dL (32.0-36.0); MEAN CORPUSCULAR VOLUME 92 fl (80-97); MONOCYTES % (AUTO) 8.5 % (3-13); RED BLOOD COUNT 4.22 10^6/uL (4.35-5.55); RED CELL DISTRIBUTION WIDTH 13.1 % (11.5-14.0); WHITE BLOOD COUNT 6.6 10^3/uL (4.0-10.5)
[2016-09-12 22:20] LABS: PARTIAL THROMBOPLASTIN TIME 27.8 SEC (23.5-35.8); PROTHROMBIN TIME 12.8 SEC (11.4-15.4)
[2016-09-12 22:22] LABS: ALANINE AMINOTRANSFERASE 50 U/L (21-72); ALBUMIN 3.8 g/dL (3.5-5.0); ALKALINE PHOSPHATASE 126 U/L (38-126); ANION GAP 11 (5-19); ASPARTATE AMINO TRANSFERASE 27 U/L (17-59); BILIRUBIN,TOTAL 1.1 mg/dL (0.2-1.3); BLOOD UREA NITROGEN 14 mg/dL (7-20); CALCIUM 10.4 mg/dL (8.4-10.2); CARBON DIOXIDE 27 mmol/L (22-30); CHLORIDE 103 mmol/L (98-107); CREATINE KINASE 168 U/L (55-170); CREATININE RESULT 0.93 mg/dL (0.52-1.25); GLUCOSE 218 mg/dL (75-110); POTASSIUM 4.3 mmol/L (3.6-5.0); SODIUM 140.6 mmol/L (137-145); TOTAL PROTEIN 6.8 g/dL (6.3-8.2)
[2016-09-12 22:34] LABS: CREATINE KINASE MB 2.36 ng/mL (<4.55); TROPONIN I 0.029 ng/mL
[2016-09-12] MEDS ORDERED: ONDANSETRON HCL INJ/PF 4 MG/2 ML SDV IV ONE (23:00)
[2016-09-12] MEDS ORDERED: MORPHINE SULFATE 10 MG/ML INJ IV ONE (23:00)
[2016-09-13] MEDS ORDERED: HYDROCODONE/ACETAMINOPHEN 5-325 MG 6 TAB/DSPK PO PRN (00:17)
[2016-09-13] MEDS ORDERED: GLUCAGON,HUMAN RECOMB 1 MG INJ IM PRN (02:26)
[2016-09-13] MEDS ORDERED: DEXTROSE 50%-WATER 25 GM/50 ML DISP.SYRIN IV PRN ×2 (02:26)
[2016-09-13] MEDS ORDERED: DEXTROSE 40% GEL 15 GM TUBE PO PRN ×2 (02:26)
[2016-09-13] MEDS ORDERED: LEVOTHYROXINE SODIUM 325 MCG PO SCH (02:30)
[2016-09-13] MEDS ORDERED: (PENDING PHARMACY ID) (Alogliptin Benz/Pioglitazone [Oseni 25-30 Mg Tablet] 1 TAB) PO SCH (02:30)
[2016-09-13] MEDS ORDERED: CYANOCOBALAMIN (VITAMIN B-12) INJ 1000 MCG/1 ML VIAL SUBCUT SCH (02:30)
[2016-09-13] MEDS ORDERED: (PENDING PHARMACY ID) (Empagliflozin [Jardiance] 25 MG) PO SCH (02:30)
[2016-09-13] MEDS ORDERED: (PENDING PHARMACY ID) (Cholecalciferol (Vitamin D3) [Vitamin D3] 50,000 UNIT) PO SCH (02:30)
[2016-09-13] MEDS ORDERED: ASPIRIN 81 MG TABLET, CHEWABLE PO SCH (02:30)
[2016-09-13] MEDS ORDERED: ASPIRIN/DIPYRIDAMOLE 25-200 MG 1 CAP.SR CPMP.12HR PO ONE (03:15)
[2016-09-13] MEDS: INSULIN LISPRO 100 UNIT/ML 3 ML VIAL SUBCUT PRN ×3 (04:51→22:03)
[2016-09-13] MEDS: ENOXAPARIN SODIUM INJ 40 MG/0.4 ML DISP.SYRIN SUBCUT SCH (08:05)
[2016-09-13] MEDS: INSULIN DETEMIR 100 UNIT/ML 3 ML PEN SUBCUT SCH (08:05)
[2016-09-13] MEDS: CARVEDILOL 12.5 MG TABLET PO SCH ×2 (08:05→21:51)
[2016-09-13] MEDS: LEVOTHYROXINE SODIUM 0.025 MG TABLET PO SCH (11:18)
[2016-09-13] MEDS: LEVOTHYROXINE SODIUM 0.15 MG TABLET PO SCH (11:19)
[2016-09-13] MEDS: PREGABALIN 100 MG CAPSULE PO SCH ×2 (11:19→17:05)
--- NOTE | 2016-09-13 12:54 | EKG REPORT ---
SEVERITY:- ABNORMAL ECG - SINUS RHYTHM MULTIPLE ATRIAL PREMATURE COMPLEXES RIGHT BUNDLE BRANCH BLOCK : Confirmed by: Dea Hernandez MD 13-Sep-2016 12:53:58
[2016-09-13] MEDS: HYDROCODONE/ACETAMINOPHEN 5-325 MG TABLET PO SCH ×3 (13:17→23:30)
--- NOTE | 2016-09-13 19:24 | PDOC H&P ---
History of Present Illness Admission Date/PCP: 09/13/16 02:20 RADHA BROOKS, History of Present Illness: HASEEB YAO JR is a 66 year old male with history of diabetes mellitus, he came to the emergency room last night because of sudden onset right sided posterior throbbing headache that started just prior to arrival in the emergency room, the headache onset started when the patient was walking to his Kitchen, he said the pain was so bad it had him in tears and he had to lower himself to his knees. He said it felt like someone hit him across the head in the emergency room he was seen and appropriately manage, MRI head was done without contrast. It showed patchy acute ischemic pattern of of a 4.2 cm region of the right inferior cerebellum. MRA head and neck was also done and it shows severe narrowing/hypoplasia of the basilar artery, diffusely. Also found on the MRA was bilateral diminutive vertebral arteries Past Medical History Cardiac Medical History: Reports: Congestive Heart Failure, Myocardial Infarction - mid 1989, Hyperlipidema, Hypertension - on meds Denies: Atrial Fibrillation, Coronary Artery Disease, Peripheral Vascular Disease, Heart Murmur Pulmonary Medical History: Reports: Sleep Apnea Denies: Asthma, Bronchitis, Chronic Obstructive Pulmonary Disease (COPD) - sleep apnea/cpap, Pneumonia, Tuberculosis Neurological Medical History: Denies: Seizures Endocrine Medical History: Reports: Diabetes Mellitus Type 1, Diabetes Mellitus Type 2, Hypothyroidism Denies: Hyperthyroidism Renal/ Medical History: Denies: End Stage Renal Disease GI Medical History: Denies: Crohn's Disease, Gastroesophageal Reflux Disease, Hiatal Hernia Musculoskeltal Medical History: Denies: Arthritis, Fibromyalgia Psychiatric Medical History: Denies: Dementia, Depression Hematology: Denies: Anemia Past Surgical History Past Surgical History: Reports: Cardiac Catheterization, Cholecystectomy, Orthopedic Surgery - right knee Denies: Colostomy, Pacemaker Social History Smoking Status: Never Smoker Frequency of Alcohol Use: None Hx Recreational Drug Use: No Drugs: None Hx Prescription Drug Abuse: No - Advance Directive Resuscitation Status: Full Code Family History Family History: DM, Malignancy Parental Family History Reviewed: Yes Children Family History Reviewed: Yes Sibling(s) Family History Reviewed.: Yes Medication/Allergy Home Medications: Alogliptin Rogelio/Pioglitazone [Oseni 25-30 mg Tablet] 1 tab PO DAILY 09/13/16 Aspirin [Aspirin 81 mg Chewable Tablet] 81 mg PO DAILY 09/13/16 Atorvastatin Calcium [Lipitor 80 mg Tablet] 80 mg PO QHS 09/13/16 Carvedilol [Coreg 25 mg Tablet] 25 mg PO BID 09/13/16 Cholecalciferol (Vitamin D3) [Decara] 50,000 units PO Q7D 09/13/16 Cyanocobalamin (Vitamin B-12) [Vitamin B-12 Inj 1000 Mcg/1 ml Vial] 1,000 mg SQ Q30D 09/13/16 Empagliflozin [Jardiance] 25 mg PO DAILY 09/13/16 Esomeprazole Magnesium [Nexium] 40 mg PO BID 09/13/16 Furosemide [Lasix 40 mg Tablet] 40 mg PO DAILY 09/13/16 Insulin Detemir [Levemir Insulin 100 units/mL] 25 units SQ QAM 09/13/16 Levothyroxine Sodium 325 mcg PO DAILY 09/13/16 Pregabalin [Lyrica 100 mg Capsule] 100 mg PO BID 09/13/16 Allergies/Adverse Reactions: No Known Allergies Allergy (Verified 09/13/16 05:05) Physical Exam Vital Signs: Temp Pulse Resp BP Pulse Ox 97.8 F 82 18 159/89 H 96 09/13/16 15:21 09/13/16 16:00 09/13/16 16:00 09/13/16 16:00 09/13/16 16:00 Intake & Output 09/12/16 09/13/16 09/14/16 06:59 06:59 06:59 Intake Total 240 Balance 240 Weight 128.7 kg Results Laboratory Results: 09/13/16 09/13/16 09/13/16 03:45 03:45 09:28 Creatine Kinase 141 90 Troponin I 0.031 09/13/16 09/13/16 09/13/16 09:28 16:00 16:00 Creatine Kinase 95 Troponin I 0.029 0.024 Impressions: Chest X-Ray 09/12/16 21:18 IMPRESSION: NO ACUTE RADIOGRAPHIC FINDING IN THE CHEST. Head CT 09/12/16 21:18 IMPRESSION: 1.8 cm hypodense area in the right cerebellum, probable ischemic change, age undetermined. No hemorrhage. Brain MRI with MRA 09/12/16 21:24 IMPRESSION: 1. [place] Soto: Severe diminished caliber of the basilar artery diffusely likely due to atherosclerotic stenosis and/or hypoplasia. No occlusion. 2. MRA neck: Mild (<50% diameter) left proximal ICA stenosis. Right carotid arterial system is unremarkable. Neck MRA 09/12/16 21:24 IMPRESSION: 1. [place]: Severe diminished caliber of the basilar artery diffusely likely due to atherosclerotic stenosis and/or hypoplasia. No occlusion. 2. MRA neck: Mild (<50% diameter) left proximal ICA stenosis. Right carotid arterial system is unremarkable. Head MRI 09/12/16 22:09 IMPRESSION: Acute right cerebellar ischemia. Assessment & Plan - Diagnosis (1) Cerebellar infarction Is this a current diagnosis for this admission?: YesPlan: She has acute right inferior cerebellar infarction associated with stenosis of the basilar artery, diffusely he will be managed per stroke protocol (2) Basilar artery stenosis/occlusion with infarction Is this a current diagnosis for this admission?: Yes (3) Diabetes mellitus Qualifiers: Diabetes mellitus type: type 2 Diabetes mellitus complication status: with neurologic complications Diabetes mellitus complication detail: with polyneuropathy Diabetes mellitus watermaster insulin use: with fpc use Qualified Code(s): E11.42 - Type 2 diabetes mellitus with diabetic polyneuropathy; Z79.4 - residential (current) use of insulin (4) Hypothyroidism Qualifiers: Hypothyroidism type: unspecified Qualified Code(s): E03.9 - Hypothyroidism, unspecified Is this a current diagnosis for this admission?: Yes
--- NOTE | 2016-09-13 21:04 | XCELERA REPORT ---
[address] [address] Transthoracic Echocardiogram Report Name: HASEEB YAO JR Age: 66 yrs Gender: Male : 1950 Patient Status: Inpatient Patient Location: [id number]\S\327\S\A Study Date: 09/13/2016 05:30 PM Height: 69 in Weight: 272 lb BSA: 2.4 m2 Procedure: A complete two-dimensional transthoracic echocardiogram was performed (2D, M-mode, spectral and color flow Doppler). The study was technically adequate with some images being suboptimal in quality. Reason For Study: cva Ordering Physician: RADHA BROOKS Performed By: Elsie Alexander Interpretation Summary The left ventricular ejection fraction is normal. There is moderate concentric left ventricular hypertrophy. The left ventricle is grossly normal size. Doppler measurements suggest pseudonormalized left ventricular relaxation, which is associated with grade II/IV or mild to moderate diastolic dysfunction Wall motion cannot be accurately commented on, but no definite regional wall motion abnormalities noted. The right ventricular systolic function is normal. The right atrium is normal in size Borderline left atrial enlargement. There is no mitral valve stenosis. There is a trace amount of mitral regurgitation There is no aortic valve stenosis No aortic regurgitation is present. There is a trace or physiologic amount of tricuspid regurgitation Tricuspid regurgitation jet envelope not well defined to measure RV systolic pressure accurately. The aortic root is not well visualized. The inferior vena cava appeared normal and decreased > 50% with respiration (RAP 5-10 mmHg) Minimal pericardial effusion. No definite cardiac source of CVA/TIA noted on this particular trans- thoracic study. Consider TIERRA if clinically indicated. May consider mobile cardiac telemetry monitoring (MCT) for ruling out transient AFIB. MMode/2D Measurements \T\ Calculations RVDd: 3.4 cm LVIDd: 5.1 cmFS: 31.8 % Ao root diam: 3.3 cm IVSd: 1.2 cm LVIDs: 3.5 cmEDV(Teich): 125.5 ml LVPWd: 1.4 cmESV(Teich): 50.8 ml Ao root area: 8.4 cm2 EF(Teich): 59.6 % LA dimension: 3.3 cm LVOT diam: 2.3 cm LVOT area: 4.1 cm2 Doppler Measurements \T\ Calculations MV E max lulu: MV P1/2t max lulu: Ao V2 max: LV V1 max P.9 cm/sec 87.9 cm/sec 137.1 cm/sec 3.3 mmHg MV A max lulu: MV P1/2t: 80.8 msec Ao max PG: LV V1 max: 79.5 cm/sec MVA(P1/2t): 2.7 cm2 7.5 mmHg 90.3 cm/sec MV E/A: 1.1 MV dec slope: OMAYRA(V,D): 2.7 cm2 318.6 cm/sec2 MV dec time: 0.24 sec PA V2 max: PA pr(Accel): 75.0 cm/sec 20.4 mmHg PA max P.3 mmHg PA acc slope: 583.5 cm/sec2 PA acc time: 0.13 sec Left Ventricle The left ventricle is grossly normal size. There is moderate concentric left ventricular hypertrophy. The left ventricular ejection fraction is normal. Doppler measurements suggest pseudonormalized left ventricular relaxation, which is associated with grade II/IV or mild to moderate diastolic dysfunction. Wall motion cannot be accurately commented on, but no definite regional wall motion abnormalities noted. Right Ventricle The right ventricle is grossly normal size. There is normal right ventricular wall thickness. The right ventricular systolic function is normal. Atria The right atrium is normal in size. Borderline left atrial enlargement. Interarterial septum not well visualized and not well dopplered. Cannot comment on ASD/PFO presence. Mitral Valve The mitral valve is grossly normal. There is no mitral valve stenosis. There is a trace amount of mitral regurgitation. Aortic Valve The aortic valve is grossly normal. There is no aortic valve stenosis. No aortic regurgitation is present. Tricuspid Valve The tricuspid valve is not well visualized, but is grossly normal. There is no tricuspid stenosis. There is a trace or physiologic amount of tricuspid regurgitation. Tricuspid regurgitation jet envelope not well defined to measure RV systolic pressure accurately. Pulmonic Valve The pulmonic valve is not well visualized. Great Vessels The aortic root is not well visualized. The inferior vena cava appeared normal and decreased > 50% with respiration (RAP 5-10 mmHg). Effusions Minimal pericardial effusion. Incidental Findings No definite cardiac source of CVA/TIA noted on this particular trans- thoracic study. Consider TIERRA if clinically indicated. May consider mobile cardiac telemetry monitoring (MCT) for ruling out transient AFIB. : RADHA BROOKS > Nanci Centeno
[2016-09-13] MEDS: ATORVASTATIN CALCIUM 80 MG TABLET PO SCH (21:51)
[2016-09-14] MEDS: HYDROCODONE/ACETAMINOPHEN 5-325 MG TABLET PO SCH ×3 (05:17→17:05)
[2016-09-14 06:46] LABS: ABSOLUTE EOSINOPHILS # (AUTO) 0.3 10^3/uL (0.0-0.6); ABSOLUTE LYMPHOCYTES (AUTO) 2.4 10^3/uL (0.5-4.7); ABSOLUTE MONOCYTES (AUTO) 0.7 10^3/uL (0.1-1.4); BASOPHILS % (AUTO) 0.4 % (0-2); EOSINOPHILS % (AUTO) 4.6 % (0-6); HEMATOCRIT 36.7 % (37.9-51.0); HEMOGLOBIN 12.4 g/dL (13.5-17.0); HGB HCT DIFFERENCE 0.5; LYMPHOCYTES % (AUTO) 37.7 % (13-45); MEAN CORPUSCULAR HGB CONC 33.8 g/dL (32.0-36.0); MEAN CORPUSCULAR VOLUME 92 fl (80-97); MONOCYTES % (AUTO) 10.6 % (3-13); RED CELL DISTRIBUTION WIDTH 13.4 % (11.5-14.0); SEGMENTED NEUTROPHILS % (AUTO) 46.7 % (42-78); WHITE BLOOD COUNT 6.5 10^3/uL (4.0-10.5)
[2016-09-14 06:55] LABS: ALANINE AMINOTRANSFERASE 59 U/L (21-72); ALBUMIN 3.3 g/dL (3.5-5.0); ALKALINE PHOSPHATASE 124 U/L (38-126); ANION GAP 8 (5-19); ASPARTATE AMINO TRANSFERASE 53 U/L (17-59); BILIRUBIN,TOTAL 0.9 mg/dL (0.2-1.3); BLOOD UREA NITROGEN 15 mg/dL (7-20); CALCIUM 9.9 mg/dL (8.4-10.2); CARBON DIOXIDE 27 mmol/L (22-30); CHLORIDE 103 mmol/L (98-107); CHOLESTEROL 171.88 mg/dL (0-200); CREATININE RESULT 0.91 mg/dL (0.52-1.25); Direct HDL 35 mg/dL (>40); GLUCOSE 201 mg/dL (75-110); POTASSIUM 4.3 mmol/L (3.6-5.0); SODIUM 138.2 mmol/L (137-145); TOTAL PROTEIN 6.1 g/dL (6.3-8.2); TRIGLYCERIDES 155 mg/dL (<150)
[2016-09-14 07:10] LABS: DIRECT LDL 96 mg/dL (<100)
[2016-09-14] MEDS: ENOXAPARIN SODIUM INJ 40 MG/0.4 ML DISP.SYRIN SUBCUT SCH (07:57)
[2016-09-14] MEDS: INSULIN LISPRO 100 UNIT/ML 3 ML VIAL SUBCUT PRN ×3 (07:57→17:04)
[2016-09-14] MEDS: CARVEDILOL 12.5 MG TABLET PO SCH ×2 (07:59→20:48)
[2016-09-14] MEDS: INSULIN DETEMIR 100 UNIT/ML 3 ML PEN SUBCUT SCH (07:59)
[2016-09-14] MEDS: EMPAGLIFLOZIN 25 MG PO SCH (09:30)
[2016-09-14] MEDS: LEVOTHYROXINE SODIUM 0.15 MG TABLET PO SCH (09:31)
[2016-09-14] MEDS: PREGABALIN 100 MG CAPSULE PO SCH ×2 (09:31→17:05)
[2016-09-14] MEDS ORDERED: CLOPIDOGREL BISULFATE 75 MG TABLET PO ONE (20:00)
--- NOTE | 2016-09-14 21:10 | PDOC PROGRESS REPORT ---
Subjective Progress Note for:: 09/14/16 Subjective:: Patient was admitted yesterday because of right cerebellar infarct, he complained of headache, Aggrenox to be discontinued and will start plavix and aspirin Physical Exam Vital Signs: Temp Pulse Resp BP Pulse Ox 97.8 F 74 16 154/92 H 94 09/14/16 20:43 09/14/16 20:43 09/14/16 20:43 09/14/16 20:43 09/14/16 20:43 Intake & Output 09/13/16 09/14/16 09/15/16 06:59 06:59 06:59 Intake Total 800 1482 Balance 800 1482 Weight 128.7 kg 128.5 kg General appearance: PRESENT: no acute distress Eye exam: PRESENT: PERRLA Respiratory exam: PRESENT: clear to auscultation sharlene Cardiovascular exam: PRESENT: +S1, +S2 GI/Abdominal exam: PRESENT: soft Neurological exam: PRESENT: alert, CN II-XII grossly intact Results Laboratory Results: 09/14/16 05:52 09/14/16 05:52 09/14/16 09/14/16 05:52 05:52 WBC 6.5 RBC 4.00 L Hgb 12.4 L Hct 36.7 L MCV 92 MCH 31.0 MCHC 33.8 RDW 13.4 Plt Count 197 Seg Neutrophils % 46.7 Lymphocytes % 37.7 Monocytes % 10.6 Eosinophils % 4.6 Basophils % 0.4 Absolute Neutrophils 3.0 Absolute Lymphocytes 2.4 Absolute Monocytes 0.7 Absolute Eosinophils 0.3 Absolute Basophils 0.0 Sodium 138.2 Potassium 4.3 Chloride 103 Carbon Dioxide 27 Anion Gap 8 BUN 15 Creatinine 0.91 Est GFR ( Amer) > 60 Est GFR (Non-Af Amer) > 60 Glucose 201 H Calcium 9.9 Total Bilirubin 0.9 AST 53 ALT 59 Alkaline Phosphatase 124 Total Protein 6.1 L Albumin 3.3 L Triglycerides 155 H Cholesterol 171.88 LDL Cholesterol Direct 96 VLDL Cholesterol 31.0 HDL Cholesterol 35 L 09/13/16 09/13/16 09/13/16 03:45 03:45 09:28 Creatine Kinase 141 90 Troponin I 0.031 09/13/16 09/13/16 09/13/16 09:28 16:00 16:00 Creatine Kinase 95 Troponin I 0.029 0.024 Impressions: Chest X-Ray 09/12/16 21:18 IMPRESSION: NO ACUTE RADIOGRAPHIC FINDING IN THE CHEST. Head CT 09/12/16 21:18 IMPRESSION: 1.8 cm hypodense area in the right cerebellum, probable ischemic change, age undetermined. No hemorrhage. Brain MRI with MRA 09/12/16 21:24 IMPRESSION: 1. [place] Soto: Severe diminished caliber of the basilar artery diffusely likely due to atherosclerotic stenosis and/or hypoplasia. No occlusion. 2. MRA neck: Mild (<50% diameter) left proximal ICA stenosis. Right carotid arterial system is unremarkable. Neck MRA 09/12/16 21:24 IMPRESSION: 1. [place] Soto: Severe diminished caliber of the basilar artery diffusely likely due to atherosclerotic stenosis and/or hypoplasia. No occlusion. 2. MRA neck: Mild (<50% diameter) left proximal ICA stenosis. Right carotid arterial system is unremarkable. Head MRI 09/12/16 22:09 IMPRESSION: Acute right cerebellar ischemia. Assessment & Plan - Diagnosis (1) Cerebellar infarction Is this a current diagnosis for this admission?: Yes (2) Basilar artery stenosis/occlusion with infarction Is this a current diagnosis for this admission?: YesPlan: Discontinue Aggrenox start Plavix and aspirin (3) Diabetes mellitus Qualifiers: Diabetes mellitus type: type 2 Diabetes mellitus complication status: with neurologic complications Diabetes mellitus complication detail: with polyneuropathy Diabetes mellitus custodial insulin use: with custodial use Qualified Code(s): E11.42 - Type 2 diabetes mellitus with diabetic polyneuropathy; Z79.4 - manager terminal (current) use of insulin (4) Hypothyroidism Qualifiers: Hypothyroidism type: unspecified Qualified Code(s): E03.9 - Hypothyroidism, unspecified Is this a current diagnosis for this admission?: Yes
[2016-09-14] MEDS: ATORVASTATIN CALCIUM 80 MG TABLET PO SCH (22:30)
[2016-09-14] MEDS: ASPIRIN 81 MG TABLET, CHEWABLE PO SCH (22:30)
[2016-09-15] MEDS: HYDROCODONE/ACETAMINOPHEN 5-325 MG TABLET PO SCH ×5 (00:43→23:30)
[2016-09-15 06:15] LABS: ABSOLUTE EOSINOPHILS # (AUTO) 0.3 10^3/uL (0.0-0.6); ABSOLUTE LYMPHOCYTES (AUTO) 2.7 10^3/uL (0.5-4.7); ABSOLUTE MONOCYTES (AUTO) 0.6 10^3/uL (0.1-1.4); ABSOLUTE NEUT (AUTO) 2.6 10^3/uL (1.7-8.2); BASOPHILS % (AUTO) 0.5 % (0-2); EOSINOPHILS % (AUTO) 4.2 % (0-6); HEMATOCRIT 37.3 % (37.9-51.0); HEMOGLOBIN 12.1 g/dL (13.5-17.0); LYMPHOCYTES % (AUTO) 43.6 % (13-45); MEAN CORPUSCULAR HGB CONC 32.4 g/dL (32.0-36.0); MEAN CORPUSCULAR VOLUME 93 fl (80-97); MONOCYTES % (AUTO) 9.9 % (3-13); RED BLOOD COUNT 4.03 10^6/uL (4.35-5.55); RED CELL DISTRIBUTION WIDTH 13.2 % (11.5-14.0); SEGMENTED NEUTROPHILS % (AUTO) 41.8 % (42-78); WHITE BLOOD COUNT 6.2 10^3/uL (4.0-10.5)
[2016-09-15 06:19] LABS: PROTHROMBIN TIME 12.7 SEC (11.4-15.4)
[2016-09-15 06:34] LABS: ALANINE AMINOTRANSFERASE 53 U/L (21-72); ALKALINE PHOSPHATASE 128 U/L (38-126); ANION GAP 8 (5-19); ASPARTATE AMINO TRANSFERASE 30 U/L (17-59); BLOOD UREA NITROGEN 15 mg/dL (7-20); CALCIUM 10.2 mg/dL (8.4-10.2); CARBON DIOXIDE 29 mmol/L (22-30); CHLORIDE 102 mmol/L (98-107); CREATININE RESULT 0.97 mg/dL (0.52-1.25); GLUCOSE 134 mg/dL (75-110); POTASSIUM 4.2 mmol/L (3.6-5.0); SODIUM 139.2 mmol/L (137-145); TOTAL PROTEIN 6.1 g/dL (6.3-8.2)
[2016-09-15] MEDS: CARVEDILOL 12.5 MG TABLET PO SCH ×2 (08:34→20:04)
[2016-09-15] MEDS: INSULIN DETEMIR 100 UNIT/ML 3 ML PEN SUBCUT SCH (08:35)
[2016-09-15] MEDS: ENOXAPARIN SODIUM INJ 40 MG/0.4 ML DISP.SYRIN SUBCUT SCH (08:36)
--- NOTE | 2016-09-15 09:08 | PDOC PROGRESS REPORT ---
Subjective Progress Note for:: 09/15/16 Subjective:: Patient was admitted for the stroke doing much better patient's denied any weakness no headache or chest pain. Discussed with Dr. Mendoza is going to stay in the weekend and the he will make arragmentto [place] for further evaluation as outpatient patient's Physical Exam Vital Signs: Temp Pulse Resp BP Pulse Ox 97.7 F 66 20 136/67 H 96 09/15/16 07:27 09/15/16 08:00 09/15/16 08:00 09/15/16 08:00 09/15/16 08:00 Intake & Output 09/14/16 09/15/16 09/16/16 06:59 06:59 06:59 Intake Total 800 2438 Balance 800 2438 Weight 128.5 kg 128.2 kg General appearance: PRESENT: no acute distress, well-developed, well-nourished Head exam: PRESENT: atraumatic, normocephalic Eye exam: PRESENT: conjunctiva pink, EOMI, PERRLA. ABSENT: scleral icterus Ear exam: PRESENT: normal external ear exam Mouth exam: PRESENT: moist, tongue midline Neck exam: PRESENT: full ROM. ABSENT: carotid bruit, JVD, lymphadenopathy, thyromegaly Cardiovascular exam: PRESENT: RRR. ABSENT: diastolic murmur, rubs, systolic murmur Pulses: PRESENT: normal dorsalis pedis pul, +2 pedal pulses bilateral Vascular exam: PRESENT: normal capillary refill GI/Abdominal exam: PRESENT: normal bowel sounds, soft. ABSENT: distended, guarding, mass, organolmegaly, rebound, tenderness Rectal exam: PRESENT: deferred Neurological exam: PRESENT: alert, awake, oriented to person, oriented to place , oriented to time, oriented to situation, CN II-XII grossly intact. ABSENT: motor sensory deficit Psychiatric exam: PRESENT: appropriate affect, normal mood. ABSENT: homicidal ideation, suicidal ideation Skin exam: PRESENT: dry, intact, warm. ABSENT: cyanosis, rash Results Laboratory Results: 09/15/16 05:49 09/15/16 05:49 09/15/16 09/15/16 05:49 05:49 WBC 6.2 RBC 4.03 L Hgb 12.1 L Hct 37.3 L MCV 93 MCH 30.0 MCHC 32.4 RDW 13.2 Plt Count 190 Seg Neutrophils % 41.8 L Lymphocytes % 43.6 Monocytes % 9.9 Eosinophils % 4.2 Basophils % 0.5 Absolute Neutrophils 2.6 Absolute Lymphocytes 2.7 Absolute Monocytes 0.6 Absolute Eosinophils 0.3 Absolute Basophils 0.0 Sodium 139.2 Potassium 4.2 Chloride 102 Carbon Dioxide 29 Anion Gap 8 BUN 15 Creatinine 0.97 Est GFR ( Amer) > 60 Est GFR (Non-Af Amer) > 60 Glucose 134 H Calcium 10.2 Total Bilirubin 1.0 AST 30 ALT 53 Alkaline Phosphatase 128 H Total Protein 6.1 L Albumin 3.0 L 09/13/16 09/13/16 09/13/16 03:45 03:45 09:28 Creatine Kinase 141 90 Troponin I 0.031 09/13/16 09/13/16 09/13/16 09:28 16:00 16:00 Creatine Kinase 95 Troponin I 0.029 0.024 Impressions: Chest X-Ray 09/12/16 21:18 IMPRESSION: NO ACUTE RADIOGRAPHIC FINDING IN THE CHEST. Head CT 09/12/16 21:18 IMPRESSION: 1.8 cm hypodense area in the right cerebellum, probable ischemic change, age undetermined. No hemorrhage. Brain MRI with MRA 09/12/16 21:24 IMPRESSION: 1. [place] Soto: Severe diminished caliber of the basilar artery diffusely likely due to atherosclerotic stenosis and/or hypoplasia. No occlusion. 2. MRA neck: Mild (<50% diameter) left proximal ICA stenosis. Right carotid arterial system is unremarkable. Neck MRA 09/12/16 21:24 IMPRESSION: 1. [place] Soto: Severe diminished caliber of the basilar artery diffusely likely due to atherosclerotic stenosis and/or hypoplasia. No occlusion. 2. MRA neck: Mild (<50% diameter) left proximal ICA stenosis. Right carotid arterial system is unremarkable. Head MRI 09/12/16 22:09 IMPRESSION: Acute right cerebellar ischemia. Assessment & Plan - Diagnosis (1) Cerebellar infarction Is this a current diagnosis for this admission?: YesPlan: Continues aspirin Plavix and statin (2) Basilar artery stenosis/occlusion with infarction Is this a current diagnosis for this admission?: YesPlan: Continues the current medications fall out patient's Haque per Dr. Mendoza (3) Diabetes mellitus Qualifiers: Diabetes mellitus type: type 2 Diabetes mellitus complication status: with neurologic complications Diabetes mellitus complication detail: with polyneuropathy Diabetes mellitus rat exterminator insulin use: with shelter use Qualified Code(s): E11.42 - Type 2 diabetes mellitus with diabetic polyneuropathy; Z79.4 - shelter (current) use of insulin Is this a current diagnosis for this admission?: YesPlan: Stable (4) Hypothyroidism Qualifiers: Hypothyroidism type: unspecified Qualified Code(s): E03.9 - Hypothyroidism, unspecified Is this a current diagnosis for this admission?: YesPlan: Continuous current medication - Time Time Spent with patient: 15-24 minutes Medications reviewed and adjusted accordingly: Yes Anticipated discharge: Home Within: within 48 hours - Inpatient Certification Medical Necessity: Need Close Monitoring Due to Risk of Patient Decompensation - Plan Summary Plan Summary: Discussed with the patient and the family in the room about the current condition and the test results deems current medication
[2016-09-15] MEDS: EMPAGLIFLOZIN 25 MG PO SCH (09:31)
[2016-09-15] MEDS: LEVOTHYROXINE SODIUM 0.15 MG TABLET PO SCH (09:32)
[2016-09-15] MEDS: LEVOTHYROXINE SODIUM 0.025 MG TABLET PO SCH (09:32)
[2016-09-15] MEDS: PREGABALIN 100 MG CAPSULE PO SCH ×2 (09:32→17:13)
[2016-09-15] MEDS: CLOPIDOGREL BISULFATE 75 MG TABLET PO SCH (09:32)
[2016-09-15] MEDS ORDERED: SENNOSIDES/DOCUSATE 8.6-50 MG 1 EACH TABLET PO SCH (10:00)
[2016-09-15] MEDS ORDERED: DOCUSATE SODIUM 100 MG CAPSULE PO ONE (11:00)
[2016-09-15] MEDS ORDERED: SENNOSIDES/DOCUSATE 8.6-50 MG 1 EACH TABLET PO ONE (11:00)
[2016-09-15] MEDS: INSULIN LISPRO 100 UNIT/ML 3 ML VIAL SUBCUT PRN ×2 (16:39→22:24)
[2016-09-15] MEDS: DOCUSATE SODIUM 100 MG CAPSULE PO SCH (17:14)
[2016-09-15] MEDS: ASPIRIN 81 MG TABLET, CHEWABLE PO SCH (21:18)
[2016-09-15] MEDS: ATORVASTATIN CALCIUM 80 MG TABLET PO SCH (21:18)
[2016-09-16 05:00] LABS: ABSOLUTE EOSINOPHILS # (AUTO) 0.2 10^3/uL (0.0-0.6); ABSOLUTE LYMPHOCYTES (AUTO) 2.6 10^3/uL (0.5-4.7); ABSOLUTE MONOCYTES (AUTO) 0.5 10^3/uL (0.1-1.4); ABSOLUTE NEUT (AUTO) 1.9 10^3/uL (1.7-8.2); BASOPHILS % (AUTO) 0.4 % (0-2); EOSINOPHILS % (AUTO) 4.3 % (0-6); HEMATOCRIT 38.5 % (37.9-51.0); HEMOGLOBIN 12.5 g/dL (13.5-17.0); LYMPHOCYTES % (AUTO) 48.7 % (13-45); MEAN CORPUSCULAR HGB CONC 32.4 g/dL (32.0-36.0); MEAN CORPUSCULAR VOLUME 93 fl (80-97); MONOCYTES % (AUTO) 9.5 % (3-13); RED BLOOD COUNT 4.16 10^6/uL (4.35-5.55); RED CELL DISTRIBUTION WIDTH 13.2 % (11.5-14.0); SEGMENTED NEUTROPHILS % (AUTO) 37.1 % (42-78); WHITE BLOOD COUNT 5.3 10^3/uL (4.0-10.5)
[2016-09-16 05:18] LABS: ALANINE AMINOTRANSFERASE 54 U/L (21-72); ALBUMIN 3.1 g/dL (3.5-5.0); ALKALINE PHOSPHATASE 133 U/L (38-126); ANION GAP 9 (5-19); ASPARTATE AMINO TRANSFERASE 30 U/L (17-59); BLOOD UREA NITROGEN 20 mg/dL (7-20); CALCIUM 10.2 mg/dL (8.4-10.2); CARBON DIOXIDE 29 mmol/L (22-30); CHLORIDE 101 mmol/L (98-107); CREATININE RESULT 1.03 mg/dL (0.52-1.25); GLUCOSE 193 mg/dL (75-110); POTASSIUM 4.3 mmol/L (3.6-5.0); SODIUM 138.5 mmol/L (137-145); TOTAL PROTEIN 6.5 g/dL (6.3-8.2)
[2016-09-16 05:24] LABS: PROTHROMBIN TIME 12.5 SEC (11.4-15.4)
[2016-09-16] MEDS: HYDROCODONE/ACETAMINOPHEN 5-325 MG TABLET PO SCH ×4 (05:24→23:57)
[2016-09-16] MEDS: INSULIN LISPRO 100 UNIT/ML 3 ML VIAL SUBCUT PRN ×3 (07:34→22:00)
[2016-09-16] MEDS: ENOXAPARIN SODIUM INJ 40 MG/0.4 ML DISP.SYRIN SUBCUT SCH (07:36)
[2016-09-16] MEDS: INSULIN DETEMIR 100 UNIT/ML 3 ML PEN SUBCUT SCH (07:49)
[2016-09-16] MEDS: CARVEDILOL 12.5 MG TABLET PO SCH ×2 (09:26→19:42)
[2016-09-16] MEDS: SENNOSIDES/DOCUSATE 8.6-50 MG 1 EACH TABLET PO SCH (09:28)
[2016-09-16] MEDS: LEVOTHYROXINE SODIUM 0.15 MG TABLET PO SCH (09:28)
[2016-09-16] MEDS: LEVOTHYROXINE SODIUM 0.025 MG TABLET PO SCH (09:28)
[2016-09-16] MEDS: DOCUSATE SODIUM 100 MG CAPSULE PO SCH ×2 (09:28→17:26)
[2016-09-16] MEDS: CLOPIDOGREL BISULFATE 75 MG TABLET PO SCH (09:28)
[2016-09-16] MEDS: PREGABALIN 100 MG CAPSULE PO SCH ×2 (09:28→17:26)
[2016-09-16] MEDS: EMPAGLIFLOZIN 25 MG PO SCH (09:31)
--- NOTE | 2016-09-16 12:39 | PDOC PROGRESS REPORT ---
Subjective Progress Note for:: 09/16/16 Subjective:: Patient is is doing well denied any chest pain no headache no shortness of the breath Physical Exam Vital Signs: Temp Pulse Resp BP Pulse Ox 97.5 F 65 18 143/86 H 90 L 09/16/16 11:22 09/16/16 11:22 09/16/16 11:22 09/16/16 11:22 09/16/16 11:22 Intake & Output 09/15/16 09/16/16 09/17/16 06:59 06:59 06:59 Intake Total 2437 2052 Output Total 0 Balance 2437 2052 Weight 128.2 kg 127.1 kg General appearance: PRESENT: no acute distress, well-developed, well-nourished Head exam: PRESENT: atraumatic, normocephalic Eye exam: PRESENT: conjunctiva pink, EOMI, PERRLA. ABSENT: scleral icterus Ear exam: PRESENT: normal external ear exam Mouth exam: PRESENT: moist, tongue midline Neck exam: PRESENT: full ROM. ABSENT: carotid bruit, JVD, lymphadenopathy, thyromegaly Cardiovascular exam: PRESENT: RRR. ABSENT: diastolic murmur, rubs, systolic murmur Pulses: PRESENT: normal dorsalis pedis pul, +2 pedal pulses bilateral Vascular exam: PRESENT: normal capillary refill GI/Abdominal exam: PRESENT: normal bowel sounds, soft. ABSENT: distended, guarding, mass, organolmegaly, rebound, tenderness Rectal exam: PRESENT: deferred Neurological exam: PRESENT: alert, awake, oriented to person, oriented to place , oriented to time, oriented to situation, CN II-XII grossly intact. ABSENT: motor sensory deficit Psychiatric exam: PRESENT: appropriate affect, normal mood. ABSENT: homicidal ideation, suicidal ideation Skin exam: PRESENT: dry, intact, warm. ABSENT: cyanosis, rash Results Laboratory Results: 09/16/16 03:49 09/16/16 03:49 09/16/16 09/16/16 03:49 03:49 WBC 5.3 RBC 4.16 L Hgb 12.5 L Hct 38.5 MCV 93 MCH 30.0 MCHC 32.4 RDW 13.2 Plt Count 207 Seg Neutrophils % 37.1 L Lymphocytes % 48.7 H Monocytes % 9.5 Eosinophils % 4.3 Basophils % 0.4 Absolute Neutrophils 1.9 Absolute Lymphocytes 2.6 Absolute Monocytes 0.5 Absolute Eosinophils 0.2 Absolute Basophils 0.0 Sodium 138.5 Potassium 4.3 Chloride 101 Carbon Dioxide 29 Anion Gap 9 BUN 20 Creatinine 1.03 Est GFR ( Amer) > 60 Est GFR (Non-Af Amer) > 60 Glucose 193 H Calcium 10.2 Total Bilirubin 1.0 AST 30 ALT 54 Alkaline Phosphatase 133 H Total Protein 6.5 Albumin 3.1 L 09/13/16 09/13/16 09/13/16 03:45 03:45 09:28 Creatine Kinase 141 90 Troponin I 0.031 09/13/16 09/13/16 09/13/16 09:28 16:00 16:00 Creatine Kinase 95 Troponin I 0.029 0.024 Impressions: Chest X-Ray 09/12/16 21:18 IMPRESSION: NO ACUTE RADIOGRAPHIC FINDING IN THE CHEST. Head CT 09/12/16 21:18 IMPRESSION: 1.8 cm hypodense area in the right cerebellum, probable ischemic change, age undetermined. No hemorrhage. Brain MRI with MRA 09/12/16 21:24 IMPRESSION: 1. [place] Soto: Severe diminished caliber of the basilar artery diffusely likely due to atherosclerotic stenosis and/or hypoplasia. No occlusion. 2. MRA neck: Mild (<50% diameter) left proximal ICA stenosis. Right carotid arterial system is unremarkable. Neck MRA 09/12/16 21:24 IMPRESSION: 1. [place] Soto: Severe diminished caliber of the basilar artery diffusely likely due to atherosclerotic stenosis and/or hypoplasia. No occlusion. 2. MRA neck: Mild (<50% diameter) left proximal ICA stenosis. Right carotid arterial system is unremarkable. Head MRI 09/12/16 22:09 IMPRESSION: Acute right cerebellar ischemia. Assessment & Plan - Diagnosis (1) Cerebellar infarction Is this a current diagnosis for this admission?: YesPlan: Continues aspirin Plavix and statin (2) Basilar artery stenosis/occlusion with infarction Is this a current diagnosis for this admission?: YesPlan: Continues the current medications fall out patient's Haque per Dr. Mendoza (3) Diabetes mellitus Qualifiers: Diabetes mellitus type: type 2 Diabetes mellitus complication status: with neurologic complications Diabetes mellitus complication detail: with polyneuropathy Diabetes mellitus laborer marine terminal insulin use: with fci use Qualified Code(s): E11.42 - Type 2 diabetes mellitus with diabetic polyneuropathy; Z79.4 - parts counterman (current) use of insulin Is this a current diagnosis for this admission?: YesPlan: Stable (4) Hypothyroidism Qualifiers: Hypothyroidism type: unspecified Qualified Code(s): E03.9 - Hypothyroidism, unspecified Is this a current diagnosis for this admission?: YesPlan: Continuous current medication - Time Time Spent with patient: 15-24 minutes Medications reviewed and adjusted accordingly: Yes Anticipated discharge: Home - Inpatient Certification Medical Necessity: Need Close Monitoring Due to Risk of Patient Decompensation - Plan Summary Plan Summary: Continues the current medications patient's doing very well will for the discharge the last next 24
[2016-09-16] MEDS: ASPIRIN 81 MG TABLET, CHEWABLE PO SCH (21:09)
[2016-09-16] MEDS: ATORVASTATIN CALCIUM 80 MG TABLET PO SCH (21:09)
[2016-09-17] MEDS: HYDROCODONE/ACETAMINOPHEN 5-325 MG TABLET PO SCH ×3 (05:13→17:40)
[2016-09-17] MEDS: INSULIN LISPRO 100 UNIT/ML 3 ML VIAL SUBCUT PRN ×3 (08:08→17:39)
[2016-09-17] MEDS: INSULIN DETEMIR 100 UNIT/ML 3 ML PEN SUBCUT SCH (08:09)
[2016-09-17] MEDS: ENOXAPARIN SODIUM INJ 40 MG/0.4 ML DISP.SYRIN SUBCUT SCH (08:11)
[2016-09-17] MEDS: CARVEDILOL 12.5 MG TABLET PO SCH (08:13)
[2016-09-17] MEDS: EMPAGLIFLOZIN 25 MG PO SCH (10:00)
[2016-09-17] MEDS: LEVOTHYROXINE SODIUM 0.15 MG TABLET PO SCH (11:05)
[2016-09-17] MEDS: SENNOSIDES/DOCUSATE 8.6-50 MG 1 EACH TABLET PO SCH (11:05)
[2016-09-17] MEDS: LEVOTHYROXINE SODIUM 0.025 MG TABLET PO SCH (11:05)
[2016-09-17] MEDS: PREGABALIN 100 MG CAPSULE PO SCH ×2 (11:06→17:34)
[2016-09-17] MEDS: DOCUSATE SODIUM 100 MG CAPSULE PO SCH ×2 (11:07→17:34)
[2016-09-17] MEDS: CLOPIDOGREL BISULFATE 75 MG TABLET PO SCH (11:08)
[2016-09-17 17:44] VITALS: BP 140/83
--- NOTE | 2016-09-17 18:58 | PDOC DISCHARGE SUMMARY ---
General - Admit/Disc Date/PCP Admission Date/Primary Care Provider: 09/13/16 02:20 RADHA BROOKS, Discharge Date: 09/17/16 - Discharge Diagnosis (1) Cerebellar infarction Is this a current diagnosis for this admission?: Yes (2) Basilar artery stenosis/occlusion with infarction Is this a current diagnosis for this admission?: Yes (3) Diabetes mellitus Is this a current diagnosis for this admission?: Yes (4) Hypothyroidism Is this a current diagnosis for this admission?: Yes - Additional Information Resuscitation Status: Full Code Home Medications: Alogliptin Rogelio/Pioglitazone [Oseni 25-30 mg Tablet] 1 tab PO DAILY 09/13/16 Aspirin [Aspirin 81 mg Chewable Tablet] 81 mg PO DAILY 09/13/16 Atorvastatin Calcium [Lipitor 80 mg Tablet] 80 mg PO QHS 09/13/16 Carvedilol [Coreg 25 mg Tablet] 25 mg PO BID 09/13/16 Cholecalciferol (Vitamin D3) [Decara] 50,000 units PO Q7D 09/13/16 Cyanocobalamin (Vitamin B-12) [Vitamin B-12 Inj 1000 Mcg/1 ml Vial] 1,000 mg SQ Q30D 09/13/16 Empagliflozin [Jardiance] 25 mg PO DAILY 09/13/16 Esomeprazole Magnesium [Nexium] 40 mg PO BID 09/13/16 Furosemide [Lasix 40 mg Tablet] 40 mg PO DAILY 09/13/16 Insulin Detemir [Levemir Insulin 100 units/mL] 25 units SQ QAM 09/13/16 Levothyroxine Sodium 325 mcg PO DAILY 09/13/16 Pregabalin [Lyrica 100 mg Capsule] 100 mg PO BID 09/13/16 Clopidogrel Bisulfate [Plavix 75 mg Tablet] 75 mg PO DAILY #30 tablet 09/17/16 History of Present Illness History of Present Illness: HASEEB Aj YAO JR is a 66 year old male with history of diabetes mellitus, he came to the emergency room last night because of sudden onset right sided posterior throbbing headache that started just prior to arrival in the emergency room, the headache onset started when the patient was walking to his Kitchen, he said the pain was so bad it had him in tears and he had to lower himself to his knees. He said it felt like someone hit him across the head in the emergency room he was seen and appropriately manage, MRI head was done without contrast. It showed patchy acute ischemic pattern of of a 4.2 cm region of the right inferior cerebellum. MRA head and neck was also done and it shows severe narrowing/hypoplasia of the basilar artery, diffusely. Also found on the MRA was bilateral diminutive vertebral arteries Hospital Course Hospital Course: Patient was admitted because of right cerebellar infarct, mildly of the head was done it showed severe narrowing/hypoplasia of the basilar artery, diffusely. He was managed according to the stroke protocol, he did not tolerate Aggrenox and he was continued on aspirin and Plavix was added to the regimen. Physical Exam Vital Signs: Temp Pulse Resp BP Pulse Ox 97.9 F 69 18 140/83 H 92 09/17/16 16:04 09/17/16 16:04 09/17/16 11:12 09/17/16 16:04 09/17/16 16:04 Intake & Output 09/16/16 09/17/16 09/18/16 06:59 06:59 06:59 Intake Total 3 2946 483 Output Total 0 Balance 2052 2946 483 Weight 127.1 kg 127.1 kg General appearance: PRESENT: no acute distress, well-developed, well-nourished Head exam: PRESENT: atraumatic, normocephalic Eye exam: PRESENT: conjunctiva pink, EOMI, PERRLA Ear exam: PRESENT: normal external ear exam Mouth exam: PRESENT: moist, tongue midline Neck exam: PRESENT: full ROM Respiratory exam: PRESENT: clear to auscultation sharlene Cardiovascular exam: PRESENT: RRR, +S1, +S2 GI/Abdominal exam: PRESENT: normal bowel sounds, soft Rectal exam: PRESENT: deferred Neurological exam: PRESENT: alert, awake, oriented to person, oriented to place , oriented to time, oriented to situation, CN II-XII grossly intact Psychiatric exam: PRESENT: appropriate affect, normal mood Skin exam: PRESENT: dry, intact, warm Results Laboratory Results: 09/16/16 03:49 09/16/16 03:49 09/13/16 09/13/16 09/13/16 03:45 03:45 09:28 Creatine Kinase 141 90 Troponin I 0.031 09/13/16 09/13/16 09/13/16 09:28 16:00 16:00 Creatine Kinase 95 Troponin I 0.029 0.024 Impressions: Chest X-Ray 09/12/16 21:18 IMPRESSION: NO ACUTE RADIOGRAPHIC FINDING IN THE CHEST. Head CT 09/12/16 21:18 IMPRESSION: 1.8 cm hypodense area in the right cerebellum, probable ischemic change, age undetermined. No hemorrhage. Brain MRI with MRA 09/12/16 21:24 IMPRESSION: 1. Guadalupe Soto: Severe diminished caliber of the basilar artery diffusely likely due to atherosclerotic stenosis and/or hypoplasia. No occlusion. 2. MRA neck: Mild (<50% diameter) left proximal ICA stenosis. Right carotid arterial system is unremarkable. Neck MRA 09/12/16 21:24 IMPRESSION: 1. Guadalupe Soto: Severe diminished caliber of the basilar artery diffusely likely due to atherosclerotic stenosis and/or hypoplasia. No occlusion. 2. MRA neck: Mild (<50% diameter) left proximal ICA stenosis. Right carotid arterial system is unremarkable. Head MRI 09/12/16 22:09 IMPRESSION: Acute right cerebellar ischemia.
[2016-09-19 12:38] LABS: CREATININE URINE 50.6 mg/dL (Not Estab.); CREATININE URINE 51.9 mg/dL (Not Estab.); MICROALBUMIN URINE 72.3 ug/mL (Not Estab.)
[2016-09-20] MEDS ORDERED: ERGOCALCIFEROL (VITAMIN D2) 50000 UNIT (1.25 MG) CAPSULE PO SCH (10:00)
[2016-09-23] MEDS ORDERED: CYANOCOBALAMIN (VITAMIN B-12) INJ 1000 MCG/1 ML VIAL SUBCUT SCH (10:00)
== END 2016-09-17 19:51 | disposition home or self-care (01) | DRG 66 ==
LOC: ER 21:08 → EH 09-13 02:20 → UNDOADMIN 09-13 02:51 → EH 09-13 02:51 → 3S 09-13 12:55
PROVIDERS: ADMIT Internal Medicine; ATTEND Internal Medicine
DX: I63.9 Cerebral infarction, unspecified (principal); E11.42 Type 2 diabetes mellitus with diabetic polyneuropathy; E03.9 Hypothyroidism, unspecified; I11.0 Hypertensive heart disease with heart failure; I50.9 Heart failure, unspecified; I65.1 Occlusion and stenosis of basilar artery; G47.30 Sleep apnea, unspecified; Z79.4 Long term (current) use of insulin; Z90.49 Acquired absence of other specified parts of digestive tract; Z79.82 Long term (current) use of aspirin; Z79.899 Other long term (current) drug therapy
CPT/HCPCS: 36415; 70450; 70544; 70547; 70551; 71010; 80053; 80061; 82043; 82550; 82553; 82570; 82962; 83036; 84156; 84484; 85025; 85610; 85730; 93005; 93010; 93306; 96374; 96375; 99285; G8978-GP; G8979-GP; G8980-GP; G8987-GO; G8988-GO; G8989-GO; J1650; J1815; J2270; J2405; J3490

== ENCOUNTER 2016-12-07 07:34 | Emergency (ER) | payer MEDICARE, OTHER ==
[2016-12-07] MEDS ORDERED: NORMAL SALINE 1000 ML 1,000 ML IV ONE (08:07)
--- NOTE | 2016-12-07 08:14 | ER Document Report ---
ED GI/ - General Chief Complaint: Shortness Of Breath Stated Complaint: SHORTNESS OF BREATH AND ABDOMINAL PAIN Time seen by provider: 08:09 Mode of Arrival: Ambulatory Information source: Patient, Relative - Notes: 66-year-old male presents to ED for shortness of breath sweating diarrhea or vomiting and sharp pain in the back of his head going down his neck and to the right shoulder. States it's all started yesterday. Y states he has a history of a [place] also has a history of a stroke after her colonoscopy. He is on Plavix at this time due to a stroke 2 months ago. TRAVEL OUTSIDE OF THE [place] IN LAST 30 DAYS: No - HPI Patient complains to provider of: Abdominal pain, Diarrhea, Vomiting, Other - Headache radiating down his right shoulder Onset: Yesterday Timing/Duration: Gradual Quality of pain: Sharp Severity at maximum: Severe Severity in ED: Moderate Pain Level: 3 Location: Other - Generalized abdominal pain headache neck pain and right shoulder pain Associated symptoms: Diarrhea, Nausea, Vomiting, Other - Headache radiating down his neck to his right shoulder Exacerbated by: Movement, Walking Relieved by: Denies Similar symptoms previously: Yes Recently seen / treated by doctor: No - Related Data Allergies/Adverse Reactions: No Known Allergies Allergy (Verified 12/07/16 07:39) Past Medical History - General Information source: Patient - Social History Smoking Status: Never Smoker Cigarette use (# per day): No Chew tobacco use (# tins/day): No Smoking Education Provided: No Frequency of alcohol use: None Drug Abuse: None Occupation: retired Lives with: Family Family History: CAD, DM, Hyperlipidemia, Hypertension, Malignancy Patient has suicidal ideation: No Patient has homicidal ideation: No - Past Medical History Cardiac Medical History: Reports: Hx Congestive Heart Failure, Hx Heart Attack - mid 1989, Hx Hypercholesterolemia, Hx Hypertension - on meds Pulmonary Medical History: Reports: Hx COPD, Hx Sleep Apnea EENT Medical History: Reports: None Neurological Medical History: Reports: Hx Cerebrovascular Accident Endocrine Medical History: Reports: Hx Diabetes Mellitus Type 2, Hx Hypothyroidism Renal/ Medical History: Reports: Hx Kidney Stones Malignancy Medical History: Reports None GI Medical History: Reports: Hx Diverticulitis, Hx Colonoscopy, Hx Endoscopy Musculoskeltal Medical History: Reports Hx Arthritis, Reports Hx Musculoskeletal Trauma - Tendons torn in his knee right Skin Medical History: Reports None Psychiatric Medical History: Reports: None Traumatic Medical History: Reports: None Past Surgical History: Reports: Hx Cardiac Catheterization, Hx Cholecystectomy, Hx Orthopedic Surgery - right knee - Immunizations Immunizations up to date: Yes Hx Diphtheria, Pertussis, Tetanus Vaccination: Yes Hx Pneumococcal Vaccination: 07/19/17 Review of Systems - Review of Systems Constitutional: No symptoms reported EENT: No symptoms reported Cardiovascular: No symptoms reported Respiratory: No symptoms reported Gastrointestinal: Abdominal pain, Diarrhea, Nausea, Vomiting Genitourinary: No symptoms reported Male Genitourinary: No symptoms reported Musculoskeletal: No symptoms reported Skin: No symptoms reported Hematologic/Lymphatic: No symptoms reported Neurological/Psychological: Headaches, Other - states he has been more forgetful Physical Exam - Vital signs Vitals: Temp Pulse Resp BP Pulse Ox 98.2 F 83 16 133/79 H 93 12/07/16 07:40 12/07/16 07:40 12/07/16 07:40 12/07/16 07:40 12/07/16 07:40 Interpretation: Normal - General General appearance: Appears well, Alert - HEENT Head: Normocephalic, Atraumatic Eyes: Normal Pupils: PERRL Visual saldivar normal: Yes Ears: Normal External canal: Normal Tympanic membrane: Normal Sinus: Normal Nasal: Normal Mouth/Lips: Normal Mucous membranes: Normal Pharynx: Normal Neck: Normal - Respiratory Respiratory status: No respiratory distress Chest status: Nontender Breath sounds: Normal Chest palpation: Normal - Cardiovascular Rhythm: Regular Heart sounds: Normal auscultation Murmur: No - Abdominal Inspection: Normal Distension: No distension Bowel sounds: Normal Tenderness: Tender - Generalized Organomegaly: No organomegaly - Back Back: Normal, Nontender - Extremities General upper extremity: Normal inspection, Nontender, Normal color, Normal ROM , Normal temperature General lower extremity: Normal inspection, Nontender, Normal color, Normal ROM , Normal temperature, Normal weight bearing. No: Reji's sign - Neurological Neuro grossly intact: Yes Cognition: Normal Orientation: AAOx4 [place] Coma Scale Eye Opening: Spontaneous [place] Coma Scale Verbal: Oriented [place] Coma Scale Motor: Obeys Commands [place] Coma Scale Total: 15 Speech: Normal Cranial nerves: Normal Cerebellar coordination: Normal Motor strength normal: LUE, RUE, LLE, RLE Additional motor exam normals: Equal motorman/woman Babinski reflex: Normal (flexor plantar) Sensory: Normal - Psychological Associated symptoms: Normal affect, Normal mood - Skin Skin Temperature: Warm Skin Moisture: Dry Skin Color: Normal Course - Re-evaluation Re-evalutation: 12/07/16 13:57 Discussed patient's assessment with Dr. enriquez when he first came in. CT of the head was ordered due to patient's recent history of a stroke and state and he was a little confused at times. Patient has been having nausea vomiting and diarrhea or he was treated with IV fluids and Zofran. He was able to keep down fluids and food. Patient and states they're ready to go home. Shortness of breath has resolved he does have a history of sleep apnea whenever he lays back and goes to sleep his pulse ox drops and this is his norm. He is on a cpap at home. A copy of his labs x-ray and CT were given to patient as well as a CD of his CT and x-ray. He has a appointment to follow-up with [facility] on Saturday and he needs these for this visit. - Vital Signs Vital signs: Temp Pulse Resp BP Pulse Ox 98.0 F 74 16 140/75 H 98 12/07/16 14:11 12/07/16 14:11 12/07/16 14:11 12/07/16 14:11 12/07/16 14:11 - Laboratory Result Diagrams: 12/07/16 08:20 12/07/16 08:20 Laboratory results interpreted by me: 12/07/16 12/07/16 08:20 09:09 Glucose 264 H Calcium 10.5 H Total Bilirubin 1.6 H Alkaline Phosphatase 167 H Urine Glucose (UA) >=500 H - Diagnostic Test Radiology reviewed: Image reviewed, Reports reviewed - EKG Interpretation by Me When compared to previous EKG there are: No significant change Discharge - Discharge Clinical Impression: Nausea vomiting and diarrhea Abdominal pain Qualifiers: Abdominal location: generalized Qualified Code(s): R10.84 - Generalized abdominal pain Condition: Stable Disposition: HOME, SELF-CARE Additional Instructions: ABDOMINAL PAIN: There are many causes of abdominal pain. Pain can mean a serious problem requiring surgery (such as appendicitis). It can also be an innocent problem that goes away on its own (such as a viral infection). Often, time must pass to determine the cause of pain. The physician does not feel that hospitalization is necessary, at present. Things may change within the next 24 hours. Call the doctor or come back for re- examination if any problems occur, such as: (1) Pain that becomes more severe, steady, or becomes concentrated in one specific area. Also, pain that is more severe with movement or coughing. (2) Vomiting that persists or becomes more frequent. (3) Blood in the vomitus, urine, or bowel movements. Blood in the stool may have a tarry or black appearance. (4) Shaking chills or fever greater than 100 degrees F. (5) The abdomen becomes more distended or swollen. (6) Bowel movements cease. (7) Failure to improve as expected. VOMITING: Vomiting (or nausea without vomiting) can be caused by many other different problems. It can mean that something's wrong with the stomach, such as ulcers or inflammation or the intestinal tract, such as appendicitis. But it can also be a symptom of a problem that has nothing to do with the stomach or intestines. Vomiting is common with severe headaches, earaches, tonsillitis, and kidney infections, etc. We see it with pneumonia or heart attacks. Drugs can cause nausea and vomiting. Many abdominal problems cause vomiting; for example, gallstones, kidney stones, pancreatitis, and intestinal obstruction ( blocked bowels). In most cases, curing the vomiting depends on fixing the problem that caused it. For temporary relief, we may use an anti-nausea medicine. For home use, we can prescribe suppositories, chewable pills, pills that dissolve in the mouth, or liquid anti-nausea drugs. If the vomiting seems to be caused by a problem in the stomach, acid-suppressing drugs may be prescribed as well. It's important to avoid dehydration. Sip small amounts of clear liquids ( soft drinks, tea, broth, etc) . Try to take fluids frequently even if you are vomiting to prevent dehydration. Take increasing amounts of fluid and when liquids are being consumed successfully, advance to small amounts of bland food (toast, soups, mashed potatoes, etc.) until you are able to resume a regular diet. Avoid aspirin, tobacco, and alcohol. If the vomiting worsens, if the problem that's making you vomit worsens, or if there's evidence of bleeding in the stomach (such as black, tarry stool, or bloody or black vomit), you should return immediately. Also, return if abdominal pain worsens or becomes localized to one area or you develop high fever. Call your doctor if you aren't improved in 24 hours. DIARRHEA, NON-SPECIFIC: Diarrhea means frequent, watery stools. There are many causes. Any problem that keeps the intestinal tract from absorbing water from the stool can lead to diarrhea. A sudden new diarrhea problem is usually caused by a virus, food sensitivity, toxic bacteria, or drugs. In this case, we expect the problem to go away soon. Testing is done only if you seem seriously ill from the diarrhea. If you have chronic diarrhea, or diarrhea that keeps coming back, we need to find out why. Chronic diarrhea can be due to inflammation of the bowels such as Crohn's disease or ulcerative colitis, food sensitivity such as intolerance to lactose or wheat protein, irritable bowel syndrome, and other problems. If your diarrhea is a significant problem but it's not clear why you have it, we' ll refer you to a specialist for further testing. During an episode of diarrhea, drink small amounts (two to six ounces) of clear liquids (soft drinks, sport drinks, herb teas, broth, etc). Take fluids frequently to prevent dehydration. It's usually not a problem to take mild anti- diarrhea medication such as Kaopectate or Pepto-Bismol. As the diarrhea eases, advance to small amounts of bland food (mashed potato, toast) for 24 hours. Call the physician if blood appears in your vomit or stool, if vomiting lasts longer than 24 hours, if the abdominal pain worsens or becomes localized to one area, if you develop high fever, or if you become lightheaded and weak. Dyspnea, Nonspecific You were evaluated for shortness of breath, or dyspnea. Dyspnea has many causes, and some are more serious than others. Sometimes it's impossible to diagnose the cause of dyspnea with the tests that are available on an emergency basis. Based on our evaluation today, you do not need hospitalization now. We found no evidence of pneumonia, collapsed lung, blood clots in the lung, tumors , or heart failure. Causes of non-specific dyspnea can include asthma or bronchospasm, hyperventilation, emotional distress, heart disease, emphysema, fibrosis of the lung, and stiffness of the chest wall. In healthy individuals with a single episode, it's sometimes reasonable to do nothing but wait to see if the problem occurs again. Additional tests used to evaluate dyspnea can include cardiac stress testing, echocardiography, pulmonary function testing, CAT scan of the chest, bronchoscopy or pulmonary biopsy. Return if shortness of breath persists or worsens, or if you develop chest pain, fever, cough, confusion, or fainting. VIRAL SYNDROME: The physician has diagnosed a viral infection. Viruses not only cause "colds," but can cause many different symptoms including generalized aching, fever, headache, cough, diarrhea, nausea, vomiting, and fatigue. The treatment, for the most part, is simply relief of symptoms. This means that antibiotics are usually not given. Rest, fluids, pain medications and, occasionally, medication for the specific symptoms that are most bothersome will be prescribed. Use good handwashing to avoid passing the virus to others. Shared toys should be cleaned with disinfectant. Clean the toilets, sinks, and counter surfaces in bathrooms. Launder clothing in hot water. Contact the physician if you develop any new or unusual symptoms such as severe headache, stiff neck, high fever, chest pain, productive cough, or shortness of breath. You should be rechecked if you don't see marked improvement within seven to 10 days. INTRAVENOUS (I V) FLUIDS: As part of your care today, you received intravenous (IV) fluids. IV fluids are administered to patients who are dehydrated or to those who have certain chemical (electrolyte) abnormalities that need correcting. ANTINAUSEA MEDICATION: You have been given a medication to suppress nausea and vomiting. This type of medication can be given as a shot, pill, or suppository. It will usually last for many hours. Pills and shots usually last six to eight hours. For the typical illness, only one or two doses of the medication may be necessary. Mild lightheadedness may occur. This type of medicine can cause drowsiness. Do not drive or operate dangerous machinery while under its influence. Do not mix with alcohol. See your doctor at once if you have muscle spasms or tightness, or uncontrollable motions (particularly of the neck, mouth, or jaw). Persistent vomiting or severe lightheadedness should also be evaluated by the physician. FOLLOW-UP CARE: If you have been referred to a physician for follow-up care, call the physician s office for an appointment as you were instructed or within the next two days. If you experience worsening or a significant change in your symptoms, notify the physician immediately or return to the Emergency Department at any time for re-evaluation. Prescriptions: Ondansetron [Zofran Odt 4 mg Tablet] 1 tab PO Q6H #15 tab.rapdis Forms: Elevated Blood Pressure Referrals: RADHA BROOKS MD [Primary Care Provider] - Follow up as needed
[2016-12-07 08:37] LABS: ABSOLUTE EOSINOPHILS # (AUTO) 0.2 10^3/uL (0.0-0.6); ABSOLUTE LYMPHOCYTES (AUTO) 2.1 10^3/uL (0.5-4.7); ABSOLUTE MONOCYTES (AUTO) 0.5 10^3/uL (0.1-1.4); ABSOLUTE NEUT (AUTO) 6.5 10^3/uL (1.7-8.2); BASOPHILS % (AUTO) 0.3 % (0-2); EOSINOPHILS % (AUTO) 1.8 % (0-6); HEMOGLOBIN 14.3 g/dL (13.5-17.0); HGB HCT DIFFERENCE 0.9; LYMPHOCYTES % (AUTO) 22.8 % (13-45); MEAN CORPUSCULAR HEMOGLOBIN 31.2 pg (27.0-33.4); MEAN CORPUSCULAR HGB CONC 34.1 g/dL (32.0-36.0); MEAN CORPUSCULAR VOLUME 92 fl (80-97); MONOCYTES % (AUTO) 5.4 % (3-13); RED BLOOD COUNT 4.59 10^6/uL (4.35-5.55); RED CELL DISTRIBUTION WIDTH 12.8 % (11.5-14.0); SEGMENTED NEUTROPHILS % (AUTO) 69.7 % (42-78); WHITE BLOOD COUNT 9.4 10^3/uL (4.0-10.5)
[2016-12-07 08:55] LABS: ALANINE AMINOTRANSFERASE 65 U/L (21-72); ALBUMIN 4.2 g/dL (3.5-5.0); ALKALINE PHOSPHATASE 167 U/L (38-126); ANION GAP 13 (5-19); ASPARTATE AMINO TRANSFERASE 37 U/L (17-59); BILIRUBIN,DIRECT 0.1 mg/dL (0.0-0.4); BILIRUBIN,TOTAL 1.6 mg/dL (0.2-1.3); BLOOD UREA NITROGEN 15 mg/dL (7-20); CALCIUM 10.5 mg/dL (8.4-10.2); CARBON DIOXIDE 27 mmol/L (22-30); CHLORIDE 103 mmol/L (98-107); CREATINE KINASE 97 U/L (55-170); CREATININE RESULT 1.03 mg/dL (0.52-1.25); GLUCOSE 264 mg/dL (75-110); POTASSIUM 4.5 mmol/L (3.6-5.0); SODIUM 142.9 mmol/L (137-145); TOTAL PROTEIN 7.8 g/dL (6.3-8.2)
[2016-12-07 09:07] LABS: CREATINE KINASE MB 1.52 ng/mL (<4.55); TROPONIN I 0.021 ng/mL
[2016-12-07 09:29] LABS: APPEARANCE,URINE CLEAR; BILIRUBIN,URINE NEGATIVE (NEGATIVE); GLUCOSE, URINE >=500 mg/dL (NEGATIVE); KETONES,URINE NEGATIVE (NEGATIVE); LEUKOCYTE ESTERASE,URINE NEGATIVE (NEGATIVE); NITRITE,URINE NEGATIVE (NEGATIVE); PROTEIN,URINE NEGATIVE (NEGATIVE); URINE SPECIFIC GRAVITY 1.037; UROBILINOGEN,URINE NEGATIVE mg/dL (<2.0)
[2016-12-07] MEDS ORDERED: ONDANSETRON HCL INJ/PF 4 MG/2 ML SDV IV ONE (11:14)
[2016-12-07 14:13] VITALS: BP 140/75
--- NOTE | 2016-12-07 21:53 | EKG REPORT ---
SEVERITY:- ABNORMAL ECG - SINUS RHYTHM MULTIPLE ATRIAL PREMATURE COMPLEXES RIGHT BUNDLE BRANCH BLOCK : Confirmed by: Dea Hernandez MD 07-Dec-2016 21:53:02
== END 2016-12-07 14:11 | disposition home or self-care (01) ==
LOC: ER 07:34
DX: R19.7 Diarrhea, unspecified (principal); R11.2 Nausea with vomiting, unspecified; R10.84 Generalized abdominal pain; R06.02 Shortness of breath; I50.9 Heart failure, unspecified; E78.00 Pure hypercholesterolemia, unspecified; I11.0 Hypertensive heart disease with heart failure; E11.9 Type 2 diabetes mellitus without complications; E03.9 Hypothyroidism, unspecified; Z86.73 Personal history of transient ischemic attack (TIA), and cerebral infarction without residual deficits; Z87.442 Personal history of urinary calculi; Z90.49 Acquired absence of other specified parts of digestive tract; I25.2 Old myocardial infarction; Z79.02 Long term (current) use of antithrombotics/antiplatelets
CPT/HCPCS: 93005; 99285; 96361; 96374; 36415; 82553; 82550; 85025; 80053; 81001; 84484; 83880; 71010; 70450; 93010; J2405; J7030

== ENCOUNTER 2016-12-21 16:35 | Emergency (ER) | payer MEDICARE, OTHER ==
[2016-12-21 17:48] LABS: PARTIAL THROMBOPLASTIN TIME 27.3 SEC (23.5-35.8); PROTHROMBIN TIME 12.6 SEC (11.4-15.4)
[2016-12-21 17:55] LABS: ABSOLUTE EOSINOPHILS # (AUTO) 0.2 10^3/uL (0.0-0.6); ABSOLUTE LYMPHOCYTES (AUTO) 2.9 10^3/uL (0.5-4.7); ABSOLUTE MONOCYTES (AUTO) 0.6 10^3/uL (0.1-1.4); ABSOLUTE NEUT (AUTO) 4.2 10^3/uL (1.7-8.2); BASOPHILS % (AUTO) 0.5 % (0-2); EOSINOPHILS % (AUTO) 2.7 % (0-6); HEMATOCRIT 38.6 % (37.9-51.0); HEMOGLOBIN 12.7 g/dL (13.5-17.0); HGB HCT DIFFERENCE -0.5; LYMPHOCYTES % (AUTO) 36.8 % (13-45); MEAN CORPUSCULAR HGB CONC 32.8 g/dL (32.0-36.0); MEAN CORPUSCULAR VOLUME 95 fl (80-97); MONOCYTES % (AUTO) 7.5 % (3-13); RED BLOOD COUNT 4.08 10^6/uL (4.35-5.55); RED CELL DISTRIBUTION WIDTH 13.3 % (11.5-14.0); SEGMENTED NEUTROPHILS % (AUTO) 52.5 % (42-78); WHITE BLOOD COUNT 7.9 10^3/uL (4.0-10.5)
--- NOTE | 2016-12-21 18:01 | ER Document Report ---
ED Neuro Symptoms/Deficit - General Chief Complaint: S/S of Possible Stroke Stated Complaint: POSSIBLE STROKE Mode of Arrival: Ambulatory Information source: Patient, Relative TRAVEL OUTSIDE OF THE [place] IN LAST 30 DAYS: No - HPI Patient complains to provider of: Paresthesia - R. U. E., Other - PAIN R. [facility]. E. Onset: This afternoon - 2 PM Awoke with symptoms: No Exact time of onset: 1400 Symptoms are: Constant Duration: Better, Continues in ED Severity: Moderate Context: Other - KNOWN INTRACRANIAL ANEURYSM Loss of consciousness: No loss of consciousness Was STROKE ALERT Called: No Baseline Cognitive: Alert, oriented X 3 Baseline Gait: Walks w/o assistance Alert To: Name/Voice Notes: Patient apparently was at [facility] this morning for some type of angiogram to evaluate a known intracranial aneurysm. He and his were traveling home from [place] when he had sudden onset of new symptoms. They continued homeward, and upon arriving home the spouse put the patient to bed and called the doctor at [place] who instructed her to take the patient to the nearest emergency department and obtain an emergency MRI scan. - Related Data Allergies/Adverse Reactions: No Known Allergies Allergy (Verified 12/07/16 07:39) Past Medical History - General Information source: Patient, Relative - Social History Smoking Status: Unknown if Ever Smoked Family History: CAD, DM, Hyperlipidemia, Hypertension, Malignancy - Past Medical History Cardiac Medical History: Reports: Hx Atrial Fibrillation, Hx Congestive Heart Failure, Hx Heart Attack - mid 1989, Hx Hypercholesterolemia, Hx Hypertension - on meds Denies: Hx Coronary Artery Disease, Hx Peripheral Vascular Disease, Hx Heart Murmur Pulmonary Medical History: Reports: Hx COPD, Hx Sleep Apnea Denies: Hx Asthma, Hx Bronchitis, Hx Pneumonia, Hx Tuberculosis Neurological Medical History: Reports: Hx Cerebrovascular Accident, Other - Patient is known to have an intracranial aneurysm about the size of a pencil eraser. Plan is to monitor periodically, no intervention at this time.. Denies : Hx Seizures Endocrine Medical History: Reports: Hx Diabetes Mellitus Type 1, Hx Diabetes Mellitus Type 2, Hx Hypothyroidism. Denies: Hx Graves' Disease, Hx Hyperthyroidism Renal/ Medical History: Reports: Hx Kidney Stones. Denies: Hx Benign Prostatic Hyperplasia, Hx End Stage Renal Disease, Hx Peritoneal Dialysis GI Medical History: Reports: Hx Diverticulitis, Hx Colonoscopy, Hx Endoscopy. Denies: Hx Crohn's Disease, Hx Gastroesophageal Reflux Disease, Hx Hiatal Hernia , Hx Irritable Bowel, Hx Liver Failure, Hx Ulcer Musculoskeltal Medical History: Reports Hx Arthritis, Denies Hx Fibromyalgia, Denies Hx Multiple Sclerosis, Denies Hx Muscular Dystrophy, Reports Hx Musculoskeletal Trauma - Tendons torn in his knee right Psychiatric Medical History: Denies: Hx Dementia, Hx Depression Traumatic Medical History: Denies: Hx Fractures Past Surgical History: Reports: Hx Cardiac Catheterization, Hx Cardiac Surgery - cath, Hx Cholecystectomy, Hx Orthopedic Surgery - right knee. Denies: Hx Colostomy, Hx Pacemaker - Immunizations Immunizations up to date: Yes Hx Diphtheria, Pertussis, Tetanus Vaccination: Yes Hx Pneumococcal Vaccination: 07/19/17 Review of Systems - Review of Systems Constitutional: No symptoms reported EENT: No symptoms reported Cardiovascular: No symptoms reported Respiratory: No symptoms reported Gastrointestinal: No symptoms reported Genitourinary: No symptoms reported Musculoskeletal: No symptoms reported Skin: No symptoms reported Hematologic/Lymphatic: No symptoms reported Neurological/Psychological: See HPI Physical Exam - Vital signs Vitals: Temp Pulse Resp BP Pulse Ox 97.9 F 74 18 142/75 H 95 12/21/16 17:20 12/21/16 17:20 12/21/16 17:20 12/21/16 17:20 12/21/16 17:20 Interpretation: Hypertensive - General General appearance: Appears well, Alert In distress: None - HEENT Head: Normocephalic Eyes: Normal Conjunctiva: Normal Ears: Normal Nasal: Normal Mucous membranes: Normal - Respiratory Respiratory status: No respiratory distress Breath sounds: Normal - Cardiovascular Rhythm: Regular Heart sounds: Normal auscultation Murmur: No - Abdominal Inspection: Normal Distension: No distension Bowel sounds: Normal - Extremities General upper extremity: Normal inspection General lower extremity: Normal inspection - Neurological Neuro grossly intact: No - SLIGHT MOTOR WEAKNESS R UPPER EXTREMITY Cognition: Normal Orientation: AAOx4 - Psychological Associated symptoms: Normal affect, Normal mood - Skin Skin Temperature: Warm Skin Moisture: Dry Skin Color: Normal Skin Turgor: Elastic Course - Vital Signs Vital signs: Temp Pulse Resp BP Pulse Ox 97.9 F 74 21 H 142/75 H 91 L 12/21/16 17:20 12/21/16 17:20 12/21/16 17:42 12/21/16 17:20 12/21/16 17:42 - Laboratory Result Diagrams: 12/21/16 17:41 12/21/16 17:41 Laboratory results interpreted by me: 12/21/16 17:41 RBC 4.08 L Hgb 12.7 L - EKG Interpretation by Me EKG shows normal: Sinus rhythm, Intervals, ST-T Waves. abnormal: QRS Complexes Rate: Normal Rhythm: NSR, APC's [place]/QRS: RBBB When compared to previous EKG there are: No significant change - Consults DR. YAN Time consulted: 22:55 Reason for consultation: 12/21/16 23:03 ADVICE RE: Rx & F/U Consulted provider: follow-up in office ED [employer]/Exc Criteria - Date/Time patient last known well: Date/Time: 12/21/16 1400 - Date/Time patient arrived in ED: _: 12/21/16 1700 - Inclusion Criteria: 1: Patient presented to ED within 3 hours of acute ischemic stroke symptom onset ? -: No 2: Did baseline CT exclude intracranial hemorrhage and/or other risk factors? 3: Is the age of the patient 18 years of age or greater? : If any of the above questions are answered "NO" then stop, patient is not a candidate for Alteplase, : If all of the above questions are answered "YES" then continue with Exclusion Criteria. - Exclusion Criteria: 1: Is there evidence of intracranial hemorrhage on baseline CT? 2: Is there suspicion of subarachnoid hemorrhage (even if CT negative)? 3: Is there a history of serious head trauma, recent previous stroke or NH within 3 months? 4: Does the patient have a clinical presentation consistent with NH or post-NH pericarditis? 5: Is there history of intracranial hemorrhage? 6: On repeated measurement is Systolic BP greater than 185mmHg or Diastolic BP greater that 110 mmHg and is aggressive treatment needed to reduce blood pressure to these limits (e.g. constant infusion of an anti-hypertensive)? 7: Did the patient awake with stroke symptoms? 8: Has the patient had a lumbar puncture or an arterial puncture at a non- compressile site within 7 days? 9: With in the last 14 days did the patient have surgery or major trauma? 10: Is the patient or less than 2 weeks? 11: Was there any active bleeding or acute trauma? 12: Does the patient have intracranial neoplasm, arteriovenous malformation or aneurysm? 13: Does the patient have abnormal glucose (less than 50 or greater than 400mg/ dl)? Record glucose in Comment. 14: Patient has rapidly improving symptoms at the time Alteplase is to be Administered. 15: Does the patient have any risks for bleeding, including but not limited to: a.: Current use of Coumadin with PT greater than 15 seconds or INR greater than 1.7. b.: Current use of Pradaxa (Dabigatran). c.: Heparin administereed within the past 48 hours and PTT elevated. d.: Platelet count less than 100,000/mm. e.: Major surgery or serious trauma within 14 days. f.: Gastrointestinal or gynecological urinary bleeding within 14 days. g.: Myocardial Infarction (NH) within 3 months. : If the answer to any of the above questions is "YES" then stop, the patient is not a candidate for Alteplase. : If the answer to all of the above questions is "NO" then the patient may be eligible for the Administration of Alteplase. : If the patient is noted to have seizure activity at onset of Stroke symptoms; Consult Neurologist for further evaluation. - The patient is: -: Included and is eligible to receive Alteplase. *Initiate bed placement at higher level of care* Reviewd risks & benefits of thrombolytic therapy: I have reviewed the risks and benefits of thrombolytic therapy with the patient and/or his/her family. -: Excluded and not eligible to receive Alteplase for the above exclusions. -: Excluded and not eligible to receive Alteplase for other reasons (specify in comments): - Diagnosis of TIA: -: Patient presented with transient symptoms that are now resolved and no other neurologic findings are currently present. List symptoms in comments. -: Patient is NOT a candidate for tPA. -: ____(put name in comment) has been consulted for admission and continued evaluation of risk factor assessment. Discharge - Discharge Clinical Impression: CVA (cerebral vascular accident) Qualifiers: CVA mechanism: unspecified Qualified Code(s): I63.9 - Cerebral infarction, unspecified Atrial fibrillation Qualifiers: Atrial fibrillation type: chronic Qualified Code(s): I48.2 - Chronic atrial fibrillation Condition: Stable Disposition: HOME, SELF-CARE Instructions: Stroke ([facility]) Additional Instructions: DR. YAN HAS BEEN CONSULTED REGARDING YOUR CARE, AND HE RECOMMENDS THAT YOU: BEGIN TAKING THE BLOOD THINNER PREVIOUSLY PRESCRIBED FOR YOU TOMORROW ( SATURDAY, DECEMBER 22). CONTINUE ALL OF YOUR OTHER MEDICINES USUAL. FOLLOW UP WITH DR. YAN IN CLINIC, CALL SATURDAY FOR EARLY APPOINTMENT. RETURN TO E.R. IF YOU GET WORSE IN ANY WAY, ANY TIME. Referrals: RADHA BROOKS MD [Primary Care Provider] - Follow up as needed
[2016-12-21 18:11] LABS: ALANINE AMINOTRANSFERASE 65 U/L (21-72); ALBUMIN 3.6 g/dL (3.5-5.0); ALKALINE PHOSPHATASE 141 U/L (38-126); ANION GAP 11 (5-19); ASPARTATE AMINO TRANSFERASE 34 U/L (17-59); BILIRUBIN,DIRECT 0.4 mg/dL (0.0-0.4); BLOOD UREA NITROGEN 18 mg/dL (7-20); CARBON DIOXIDE 28 mmol/L (22-30); CHLORIDE 103 mmol/L (98-107); CREATINE KINASE 115 U/L (55-170); CREATININE RESULT 1.08 mg/dL (0.52-1.25); GLUCOSE 277 mg/dL (75-110); POTASSIUM 4.5 mmol/L (3.6-5.0); SODIUM 141.6 mmol/L (137-145); TOTAL PROTEIN 6.8 g/dL (6.3-8.2)
[2016-12-21 18:23] LABS: CREATINE KINASE MB 2.04 ng/mL (<4.55); TROPONIN I 0.013 ng/mL
--- NOTE | 2016-12-21 19:07 | EKG REPORT ---
SEVERITY:- ABNORMAL ECG - SINUS RHYTHM ATRIAL PREMATURE COMPLEX RIGHT BUNDLE BRANCH BLOCK : Confirmed by: Lloyd Miner MD 21-Dec-2016 19:06:23
[2016-12-21] MEDS ORDERED: LORAZEPAM INJ 2 MG/1 ML VIAL IV ONE (19:46)
[2016-12-21] MEDS ORDERED: LORAZEPAM INJ 2 MG/1 ML VIAL ONE (19:49)
[2016-12-21 23:10] VITALS: BP 102/76
== END 2016-12-21 23:23 | disposition home or self-care (01) ==
LOC: ER 16:35
DX: I63.9 Cerebral infarction, unspecified (principal); I48.2 Chronic atrial fibrillation; R20.9 Unspecified disturbances of skin sensation; M79.601 Pain in right arm; I48.91 Unspecified atrial fibrillation; I50.9 Heart failure, unspecified; E78.00 Pure hypercholesterolemia, unspecified; I11.0 Hypertensive heart disease with heart failure; J44.9 Chronic obstructive pulmonary disease, unspecified; E11.9 Type 2 diabetes mellitus without complications; E03.9 Hypothyroidism, unspecified; Z86.73 Personal history of transient ischemic attack (TIA), and cerebral infarction without residual deficits; I25.2 Old myocardial infarction; Z90.49 Acquired absence of other specified parts of digestive tract
CPT/HCPCS: 93005; 99285; 96374; 36415; 82553; 82550; 85025; 85610; 85730; 80053; 84484; 70551; 71010; 70450; 93010; J2060

== ENCOUNTER 2018-01-01 23:53 | Observation (INO) | payer MEDICARE, OTHER ==
--- NOTE | 2018-01-02 00:19 | ER Document Report ---
ED General - General Chief Complaint: Dizziness Stated Complaint: NECK PAIN Time Seen by Provider: 01/02/18 00:07 Mode of Arrival: Ambulatory Information source: Patient, Relative TRAVEL OUTSIDE OF THE [place] IN LAST 30 DAYS: No - HPI Patient complains to provider of: left neck pain and difficulty walking Onset: Other - saturday am Onset/Duration: Gradual Quality of pain: Other - achy left sided chest pain Associated symptoms: Leg swelling Exacerbated by: Movement, Walking Relieved by: Denies Similar symptoms previously: Yes - cereballar cva one year ago - Related Data Allergies/Adverse Reactions: No Known Allergies Allergy (Verified 12/07/16 07:39) Past Medical History - General Information source: Patient, Relative - SPOUSE - Social History Smoking Status: Former Smoker Frequency of alcohol use: None Drug Abuse: None Lives with: Family Family History: CAD, DM, Hyperlipidemia, Hypertension, Malignancy - Past Medical History Cardiac Medical History: Reports: Hx Atrial Fibrillation, Hx Congestive Heart Failure, Hx Heart Attack - mid 1989, Hx Hypercholesterolemia, Hx Hypertension - on meds Denies: Hx Coronary Artery Disease, Hx Peripheral Vascular Disease, Hx Heart Murmur Pulmonary Medical History: Reports: Hx COPD, Hx Sleep Apnea Denies: Hx Asthma, Hx Bronchitis, Hx Pneumonia, Hx Tuberculosis Neurological Medical History: Reports: Hx Cerebrovascular Accident. Denies: Hx Seizures Endocrine Medical History: Reports: Hx Diabetes Mellitus Type 1, Hx Diabetes Mellitus Type 2, Hx Hypothyroidism. Denies: Hx Graves' Disease, Hx Hyperthyroidism Renal/ Medical History: Reports: Hx Kidney Stones. Denies: Hx Benign Prostatic Hyperplasia, Hx End Stage Renal Disease, Hx Peritoneal Dialysis Malignancy Medical History: Reports None GI Medical History: Reports: Hx Diverticulitis, Hx Colonoscopy, Hx Endoscopy. Denies: Hx Crohn's Disease, Hx Gastroesophageal Reflux Disease, Hx Hiatal Hernia , Hx Irritable Bowel, Hx Liver Failure, Hx Pancreatitis, Hx Ulcer Musculoskeltal Medical History: Reports Hx Arthritis, Denies Hx Fibromyalgia, Denies Hx Multiple Sclerosis, Denies Hx Muscular Dystrophy, Reports Hx Musculoskeletal Trauma - Tendons torn in his knee right Psychiatric Medical History: Denies: Hx Dementia, Hx Depression Traumatic Medical History: Denies: Hx Fractures Past Surgical History: Reports: Hx Cardiac Catheterization, Hx Cardiac Surgery - cath, Hx Cholecystectomy, Hx Orthopedic Surgery - right knee. Denies: Hx Colostomy, Hx Pacemaker - Immunizations Immunizations up to date: Yes Hx Diphtheria, Pertussis, Tetanus Vaccination: Yes Hx Pneumococcal Vaccination: 07/19/17 Review of Systems - Review of Systems Constitutional: No symptoms reported EENT: No symptoms reported Cardiovascular: See HPI Respiratory: See HPI Gastrointestinal: No symptoms reported Genitourinary: No symptoms reported Male Genitourinary: No symptoms reported Musculoskeletal: Ankle swelling Skin: No symptoms reported Hematologic/Lymphatic: No symptoms reported Neurological/Psychological: Gait changes Physical Exam - Vital signs Vitals: Temp Pulse Resp BP Pulse Ox 98.5 F 80 18 151/80 H 94 01/02/18 00:00 01/02/18 00:00 01/02/18 00:00 01/02/18 00:00 01/02/18 00:00 - Notes Notes: PHYSICAL EXAMINATION: GENERAL: Obese gentleman sitting up in bed with mild distress secondary to neck discomfort no acute respiratory distress HEAD: Atraumatic, normocephalic. EYES: Pupils equal round and reactive to light, extraocular movements intact, sclera anicteric, conjunctiva are normal. ENT: Nares patent, oropharynx clear without exudates. Moist mucous membranes. NECK: Positive paracervical muscle spasm on the left greater than the right. Pain worse with rotation to the right and flexion. No bony tenderness or step- off of the cervical spine LUNGS: Breath sounds clear to auscultation bilaterally and equal. No wheezes rales or rhonchi. HEART: Regular rate and rhythm without murmurs ABDOMEN:Obese, nontender, nondistended abdomen. No guarding, no rebound. No masses appreciated. Musculoskeletal: Normal range of motion, no pitting or edema. No cyanosis. NEUROLOGICAL: Cranial nerves grossly intact. Normal speech, ataxic gait. Finger-nose is within normal limits. + romberg. Normal sensory, motor exams PSYCH: Normal mood, normal affect. SKIN: Warm, Dry, normal turgor, no rashes or lesions noted. Course - Re-evaluation Re-evalutation: 01/02/18 01:37 Labs- All tests 24 hr 01/02/18 01/02/18 01/02/18 00:25 00:25 00:25 WBC 8.0 RBC 4.32 L Hgb 13.5 Hct 40.0 MCV 93 MCH 31.2 MCHC 33.7 RDW 13.1 Plt Count 245 Seg Neutrophils % 41.5 L Lymphocytes % 45.8 H Monocytes % 8.7 Eosinophils % 3.6 Basophils % 0.4 Absolute Neutrophils 3.3 Absolute Lymphocytes 3.7 Absolute Monocytes 0.7 Absolute Eosinophils 0.3 Absolute Basophils 0.0 PT 13.1 INR 0.95 Sodium 143.6 Potassium 4.5 Chloride 103 Carbon Dioxide 29 Anion Gap 12 BUN 21 H Creatinine 1.17 Est GFR ( Amer) > 60 Est GFR (Non-Af Amer) > 60 Glucose 231 H Calcium 10.4 H Total Bilirubin 1.0 Direct Bilirubin 0.3 Neonat Total Bilirubin Not Reportable Neonat Direct Bilirubin Not Reportable Neonat Indirect Bili Not Reportable AST 37 ALT 61 Alkaline Phosphatase 135 H Troponin I NT-Pro-B Natriuret Pep Total Protein 7.0 Albumin 3.7 01/02/18 00:25 WBC RBC Hgb Hct MCV MCH MCHC RDW Plt Count Seg Neutrophils % Lymphocytes % Monocytes % Eosinophils % Basophils % Absolute Neutrophils Absolute Lymphocytes Absolute Monocytes Absolute Eosinophils Absolute Basophils PT INR Sodium Potassium Chloride Carbon Dioxide Anion Gap BUN Creatinine Est GFR ( Amer) Est GFR (Non-Af Amer) Glucose Calcium Total Bilirubin Direct Bilirubin Neonat Total Bilirubin Neonat Direct Bilirubin Neonat Indirect Bili AST ALT Alkaline Phosphatase Troponin I 0.020 NT-Pro-B Natriuret Pep 27 Total Protein Albumin Head CT 01/02/18 00:09 IMPRESSION: 1. No acute intracranial abnormality by CT criteria. This exam was performed according to our departmental dose-optimization program, which includes automated exposure control, adjustment of the mA and/or kV according to patient size and/or use of iterative reconstruction technique. Chest X-Ray 01/02/18 00:19 IMPRESSION: 1. No acute pulmonary process identified. - Vital Signs Vital signs: Temp Pulse Resp BP Pulse Ox 98.5 F 81 16 150/81 H 95 01/02/18 00:00 01/02/18 00:31 01/02/18 00:31 01/02/18 00:31 01/02/18 00:31 - Laboratory Result Diagrams: 01/02/18 00:25 01/02/18 00:25 Laboratory results interpreted by me: 01/02/18 01/02/18 00:25 00:25 RBC 4.32 L Seg Neutrophils % 41.5 L Lymphocytes % 45.8 H BUN 21 H Glucose 231 H Calcium 10.4 H Alkaline Phosphatase 135 H Discharge - Discharge Clinical Impression: Neck muscle spasm, Ataxia, Basilar artery narrowing Condition: Stable Disposition: ADMITTED INPATIENT Admitting Provider: Reji Unit Admitted: Telemetry Referrals: RADHA BROOKS MD [Primary Care Provider] - Follow up as needed
[2018-01-02 00:41] LABS: ABSOLUTE EOSINOPHILS # (AUTO) 0.3 10^3/uL (0.0-0.6); ABSOLUTE LYMPHOCYTES (AUTO) 3.7 10^3/uL (0.5-4.7); ABSOLUTE MONOCYTES (AUTO) 0.7 10^3/uL (0.1-1.4); ABSOLUTE NEUT (AUTO) 3.3 10^3/uL (1.7-8.2); BASOPHILS % (AUTO) 0.4 % (0-2); EOSINOPHILS % (AUTO) 3.6 % (0-6); HEMOGLOBIN 13.5 g/dL (13.5-17.0); LYMPHOCYTES % (AUTO) 45.8 % (13-45); MEAN CORPUSCULAR HEMOGLOBIN 31.2 pg (27.0-33.4); MEAN CORPUSCULAR HGB CONC 33.7 g/dL (32.0-36.0); MEAN CORPUSCULAR VOLUME 93 fl (80-97); MONOCYTES % (AUTO) 8.7 % (3-13); PLATELET COUNT 245 10^3/uL (150-450); RED BLOOD COUNT 4.32 10^6/uL (4.35-5.55); RED CELL DISTRIBUTION WIDTH 13.1 % (11.5-14.0); SEGMENTED NEUTROPHILS % (AUTO) 41.5 % (42-78); TOTAL CELLS COUNTED % (AUTO) 100 %
--- NOTE | 2018-01-02 00:47 | RADIOLOGY REPORT (SQ) ---
EXAM DESCRIPTION: CT of the head without contrast CLINICAL HISTORY: ataxia COMPARISON: 12/21/2016 TECHNIQUE: Axial CT of the head obtained from the skull apex to the skull base without contrast. FINDINGS: No acute intracranial hemorrhage identified. No mass, mass effect, shift of the midline, abnormal extra-axial fluid collection or CT evidence of acute ischemic change identified. The ventricular system and sulcal spaces have normal size and configuration.. Scattered areas of hypodensity throughout the supratentorial white matter are nonspecific and may be related to chronic small vessel ischemic change. The visualized paranasal sinuses and the mastoids are clear. No skull fracture identified. Visualized orbits and globes are unremarkable. Atherosclerotic calcification of the intracranial internal carotid arteries. DLP: 1043.77 mGy-cm IMPRESSION: 1. No acute intracranial abnormality by CT criteria. This exam was performed according to our departmental dose-optimization program, which includes automated exposure control, adjustment of the mA and/or kV according to patient size and/or use of iterative reconstruction technique.
--- NOTE | 2018-01-02 00:48 | RADIOLOGY REPORT (SQ) ---
EXAM DESCRIPTION: Single view of the chest CLINICAL HISTORY: sob COMPARISON: 12/21/2016 FINDINGS: Single frontal view of the chest. Cardiac silhouette is mildly prominent which may be related to AP technique. Low lung volumes. No pulmonary vascular congestion or pulmonary edema. Leads overlie the chest. No consolidation, pneumothorax, or pleural effusion. No displaced rib fractures identified. Upper abdominal soft tissues are unremarkable. IMPRESSION: 1. No acute pulmonary process identified.
[2018-01-02 00:53] LABS: INTERNATIONAL RATION (INR) 0.95; PROTHROMBIN TIME 13.1 SEC (11.4-15.4)
[2018-01-02 01:05] LABS: ALANINE AMINOTRANSFERASE 61 U/L (21-72); ALBUMIN 3.7 g/dL (3.5-5.0); ALKALINE PHOSPHATASE 135 U/L (38-126); ANION GAP 12 (5-19); ASPARTATE AMINO TRANSFERASE 37 U/L (17-59); BILIRUBIN,DIRECT 0.3 mg/dL (0.0-0.4); BLOOD UREA NITROGEN 21 mg/dL (7-20); CALCIUM 10.4 mg/dL (8.4-10.2); CARBON DIOXIDE 29 mmol/L (22-30); CHLORIDE 103 mmol/L (98-107); GLUCOSE 231 mg/dL (75-110); POTASSIUM 4.5 mmol/L (3.6-5.0); SODIUM 143.6 mmol/L (137-145)
[2018-01-02 01:16] LABS: TROPONIN I 0.02 ng/mL
[2018-01-02] MEDS ORDERED: DIAZEPAM INJ 10 MG/2 ML DISP.SYRIN IV ONE (01:28)
[2018-01-02] MEDS ORDERED: GLUCAGON,HUMAN RECOMB 1 MG INJ IM PRN (04:55)
[2018-01-02] MEDS ORDERED: DEXTROSE 40% GEL 15 GM TUBE PO PRN (04:55)
[2018-01-02] MEDS ORDERED: DEXTROSE 50%-WATER SYRINGE 25 GM/50 ML DOSE IV PRN (04:55)
[2018-01-02] MEDS ORDERED: DEXTROSE 50%-WATER SYRINGE 12.5 GM/25 ML DOSE IV PRN (04:55)
[2018-01-02] MEDS ORDERED: DEXTROSE 40% GEL 15 GM TUBE X 2 PO PRN (04:55)
[2018-01-02] MEDS ORDERED: CYANOCOBALAMIN (VITAMIN B-12) INJ 1000 MCG/1 ML VIAL SUBCUT SCH (05:00)
[2018-01-02] MEDS: LEVOTHYROXINE SODIUM 0.1 MG TABLET PO SCH (05:52)
[2018-01-02 06:15] LABS: HEMATOCRIT 39.4 % (37.9-51.0); MEAN CORPUSCULAR HEMOGLOBIN 30.8 pg (27.0-33.4); MEAN CORPUSCULAR VOLUME 93 fl (80-97); PLATELET COUNT 227 10^3/uL (150-450); RED BLOOD COUNT 4.22 10^6/uL (4.35-5.55); RED CELL DISTRIBUTION WIDTH 13.3 % (11.5-14.0)
[2018-01-02 06:34] LABS: ALANINE AMINOTRANSFERASE 59 U/L (21-72); ALBUMIN 3.6 g/dL (3.5-5.0); ALKALINE PHOSPHATASE 129 U/L (38-126); ANION GAP 9 (5-19); ASPARTATE AMINO TRANSFERASE 30 U/L (17-59); BILIRUBIN,DIRECT 0.2 mg/dL (0.0-0.4); BILIRUBIN,TOTAL 0.9 mg/dL (0.2-1.3); BLOOD UREA NITROGEN 20 mg/dL (7-20); CALCIUM 10.2 mg/dL (8.4-10.2); CARBON DIOXIDE 25 mmol/L (22-30); CHLORIDE 106 mmol/L (98-107); GLUCOSE 235 mg/dL (75-110); POTASSIUM 4.3 mmol/L (3.6-5.0); SODIUM 139.8 mmol/L (137-145); TOTAL PROTEIN 6.6 g/dL (6.3-8.2)
[2018-01-02] MEDS ORDERED: LORAZEPAM 1 MG TABLET PO PRN (07:51)
[2018-01-02] MEDS ORDERED: FUROSEMIDE 40 MG TABLET PO SCH (10:00)
--- NOTE | 2018-01-02 10:00 | EKG REPORT ---
SEVERITY:- ABNORMAL ECG - SINUS RHYTHM RIGHT BUNDLE BRANCH BLOCK INFERIOR INFARCT, AGE INDETERMINATE : Confirmed by: Nanci Centeno 02-Jan-2018 09:59:57
[2018-01-02] MEDS: CARVEDILOL 12.5 MG TABLET PO SCH ×2 (10:17→17:28)
[2018-01-02] MEDS: INSULIN DETEMIR 100 UNIT/ML 3 ML PEN SUBCUT SCH (10:18)
--- NOTE | 2018-01-02 10:22 | RADIOLOGY REPORT (SQ) ---
EXAM DESCRIPTION: MRA NECK WITHOUT COMPLETED DATE/TIME: 01/02/2018 9:58 am REASON FOR STUDY: ataxia COMPARISON: None. TECHNIQUE: Axial 2-D volume acquisition imaging through the extracranial carotid and vertebral arter ies with reformatting using 3-D MIPS. LIMITATIONS: None. FINDINGS: RIGHT CAROTID ARTERY: No stenosis or occlusive changes. Limited visualization of the orig in. LEFT CAROTID ARTERY: No stenosis or occlusive changes. Limited visualization of the origin. VERTEBRAL ARTERY: The extracranial portions of the vertebral basilar system are preserved without joyce nosis. No aneurysmal dilatation or dissection is seen. Right vertebral artery is small in size and i ncompletely visualized. OTHER: No other significant finding. IMPRESSION: NO SIGNIFICANT STENOSIS. COMMENT: Quality ID #[id number]: Measurements of distal internal carotid diameter were used as the denomin ator for stenosis measurement. TECHNICAL DOCUMENTATION: JOB ID: [id number] [employer]- All Rights Reserved Reading location - IP/workstation name: [email or web address]
--- NOTE | 2018-01-02 10:25 | RADIOLOGY REPORT (SQ) ---
EXAM DESCRIPTION: MRI HEAD WITHOUT COMPLETED DATE/TIME: 01/02/2018 9:58 am REASON FOR STUDY: ataxia COMPARISON: CT 01/02/2018. TECHNIQUE: Multiplanar imaging includes non-contrasted T1, T2, FLAIR, and diffusion with ADC map seq uences. Images stored on PACS. LIMITATIONS: None. FINDINGS: ANATOMY: No anomalies. Normal vascular flow voids. Pituitary fossa normal. CSF SPACES: Normal in size and contour. No hemorrhage. CEREBRUM: Sulci and gyri normal in size and contour. Normal white matter signal on FLAIR imaging. No evidence of hemorrhage, mass, or extraaxial fluid collection. POSTERIOR FOSSA: Probable old infarct in the right aspect of the cerebellum. Small vessel changes ar e likely in the upper tejal. IAC's intact. Minimal mastoid fluid bilaterally. DIFFUSION IMAGING: Negative for acute or sub-acute infarction. ORBITS: No masses. Globes normal. PARANASAL SINUSES: No fluid levels. Mucosa normal. OTHER: Prominent posterior nasopharyngeal tissue may simply represent adenoid hypertrophy. ENT consu ltation recommended, however. IMPRESSION: 1. No acute intracranial abnormality. 2. Suspect some chronic changes in the posterior fossa to include mild small vessel disease in the upper brainstem as well as old tiny infarct in the right cerebellum. 3. Prominent posterior nasopharyngeal soft tissue. ENT consultation suggested. EVIDENCE OF ACUTE STROKE: NO. TECHNICAL DOCUMENTATION: JOB ID: [id number] [employer]- All Rights Reserved Reading location - IP/workstation name: [email or web address]
[2018-01-02] MEDS: TRAMADOL HCL 50 MG TABLET PO PRN ×2 (11:30→19:49)
[2018-01-02] MEDS: INSULIN LISPRO 100 UNIT/ML 3 ML VIAL SUBCUT PRN ×2 (14:20→22:52)
[2018-01-02] MEDS ORDERED: ACYCLOVIR 800 MG TABLET PO ONE (19:30)
--- NOTE | 2018-01-02 20:24 | PDOC H&P ---
History of Present Illness Admission Date/PCP: 01/02/18 01:40 RADHA BROOKS MD History of Present Illness: HASEEB YAO JR is a 67 year old male, He came to the emergency room 4 evaluation of neck pain this is of acute onset, there is no chest pain in the emergency room he was evaluated it was felt that he may have a stroke because he has a history of cerebellar infarct, CT head was done which was negative but the emergency room physician want patient to have MRA and MRI of the brain and neck but this could not be done last night so she called me to have patient admitted to the hospital for further evaluation with MRI. MRI of the head was done this morning MRIA of the neck was done as well due to a negative for any acute pathology. When I saw this patient on on examination he has erythema of the posterior aspect of the neck with herpetiform rash with dermatomal pattern does suggest to me that he has shingles/herpes zoster Past Medical History Cardiac Medical History: Reports: Atrial Fibrillation, Congestive Heart Failure , Myocardial Infarction, Hyperlipidema, Hypertension Pulmonary Medical History: Reports: Sleep Apnea Neurological Medical History: Denies: Seizures Endocrine Medical History: Reports: Diabetes Mellitus Type 2, Hypothyroidism Malignancy Medical History: Reports: None GI Medical History: Reports: Diverticulitis Musculoskeltal Medical History: Reports: Arthritis Denies: Fibromyalgia Psychiatric Medical History: Reports: Depression Past Surgical History Past Surgical History: Reports: Cardiac Catheterization, Cholecystectomy, Orthopedic Surgery - right knee Social History Lives with: Family Smoking Status: Former Smoker Frequency of Alcohol Use: None Hx Recreational Drug Use: No Drugs: None Hx Prescription Drug Abuse: No - Advance Directive Resuscitation Status: Full Code Family History Family History: CAD, DM, Hyperlipidemia, Hypertension, Malignancy Parental Family History Reviewed: Yes Children Family History Reviewed: Yes Sibling(s) Family History Reviewed.: Yes Medication/Allergy Home Medications: Atorvastatin Calcium [Lipitor 80 mg Tablet] 80 mg PO QHS 09/13/16 Carvedilol [Coreg 25 mg Tablet] 25 mg PO BID 09/13/16 Cyanocobalamin (Vitamin B-12) [Vitamin B-12 Inj 1000 Mcg/1 ml Vial] 1,000 mg SQ Q30D 09/13/16 Furosemide [Lasix 40 mg Tablet] 40 mg PO DAILY 09/13/16 Insulin Detemir [Levemir Insulin 100 units/mL] 25 units SQ QAM 09/13/16 Levothyroxine Sodium 200 mcg PO DAILY 09/13/16 Acyclovir [Acyclovir 400 mg Tablet] 800 mg PO 5XD #50 tablet 01/02/18 Dabigatran Etexilate Mesylate [Pradaxa 150 mg Capsule] 150 mg PO Q12 01/02/18 Empagliflozin/Metformin HCl [Synjardy 12.5-1,000 mg Tablet] 1 tab PO BID Ergocalciferol (Vitamin D2) [Vitamin D2] 50,000 unit PO FR@1000 01/02/18 Gabapentin 300 mg PO TID #90 capsule 01/02/18 Gabapentin [Neurontin 100 mg Capsule] 100 mg PO Q12 01/02/18 Losartan Potassium [Cozaar 100 mg Tablet] 100 mg PO DAILY 01/02/18 Spironolactone [Aldactone 25 mg Tablet] 25 mg PO BID 01/02/18 Allergies/Adverse Reactions: No Known Allergies Allergy (Verified 12/07/16 07:39) Review of Systems Constitutional: ABSENT: chills, fever(s), headache(s), weight gain, weight loss Eyes: ABSENT: visual disturbances Ears: ABSENT: hearing changes Cardiovascular: ABSENT: chest pain, dyspnea on exertion, edema, orthropnea, palpitations Respiratory: ABSENT: cough, hemoptysis Gastrointestinal: ABSENT: abdominal pain, constipation, diarrhea, hematemesis, hematochezia, nausea, vomiting Genitourinary: ABSENT: dysuria, hematuria Musculoskeletal: PRESENT: other - Neck pain. ABSENT: joint swelling Integumentary: ABSENT: rash, wounds Neurological: ABSENT: abnormal gait, abnormal speech, confusion, dizziness, focal weakness, syncope Psychiatric: ABSENT: anxiety, depression, homidical ideation, suicidal ideation Endocrine: ABSENT: cold intolerance, heat intolerance, menstrual abnormalities, polydipsia, polyuria Hematologic/Lymphatic: ABSENT: easy bleeding, easy bruising, lymphadenopathy Physical Exam Vital Signs: Temp Pulse Resp BP Pulse Ox 98.0 F 70 20 151/80 H 95 01/02/18 18:16 01/02/18 18:16 01/02/18 18:16 01/02/18 18:16 01/02/18 18:16 Intake & Output 01/01/18 01/02/18 01/03/18 06:59 06:59 06:59 Weight 126.6 kg General appearance: PRESENT: no acute distress, well-developed, well-nourished Head exam: PRESENT: atraumatic, normocephalic Eye exam: PRESENT: conjunctiva pink, EOMI, PERRLA Ear exam: PRESENT: normal external ear exam Mouth exam: PRESENT: moist, tongue midline Neck exam: PRESENT: full ROM, tenderness, other - There is erythematous rash with dermatomal distribution , Respiratory exam: PRESENT: clear to auscultation sharlene Cardiovascular exam: PRESENT: RRR, +S1, +S2 Pulses: PRESENT: normal dorsalis pedis pul, +2 pedal pulses bilateral Vascular exam: PRESENT: normal capillary refill GI/Abdominal exam: PRESENT: normal bowel sounds, soft Rectal exam: PRESENT: deferred Neurological exam: PRESENT: alert, awake, oriented to person, oriented to place , oriented to time, oriented to situation, CN II-XII grossly intact Psychiatric exam: PRESENT: appropriate affect, normal mood Results Laboratory Results: 01/02/18 05:44 01/02/18 05:44 01/02/18 01/02/18 05:44 05:44 WBC 8.0 RBC 4.22 L Hgb 13.0 L Hct 39.4 MCV 93 MCH 30.8 MCHC 33.0 RDW 13.3 Plt Count 227 Sodium 139.8 Potassium 4.3 Chloride 106 Carbon Dioxide 25 Anion Gap 9 BUN 20 Creatinine 0.92 Est GFR ( Amer) > 60 Est GFR (Non-Af Amer) > 60 Glucose 235 H Calcium 10.2 Total Bilirubin 0.9 AST 30 ALT 59 Alkaline Phosphatase 129 H Total Protein 6.6 Albumin 3.6 Impressions: Head CT 01/02/18 00:09 IMPRESSION: 1. No acute intracranial abnormality by CT criteria. This exam was performed according to our departmental dose-optimization program, which includes automated exposure control, adjustment of the mA and/or kV according to patient size and/or use of iterative reconstruction technique. Chest X-Ray 01/02/18 00:19 IMPRESSION: 1. No acute pulmonary process identified. Head MRI 01/02/18 01:13 IMPRESSION: 1. No acute intracranial abnormality. 2. Suspect some chronic changes in the posterior fossa to include mild small vessel disease in the upper brainstem as well as old tiny infarct in the right cerebellum. 3. Prominent posterior nasopharyngeal soft tissue. ENT consultation suggested. EVIDENCE OF ACUTE STROKE: NO. Neck MRA 01/02/18 01:16 IMPRESSION: NO SIGNIFICANT STENOSIS. Assessment & Plan - Diagnosis (1) Herpes zoster Qualifiers: Herpes zoster complications: without complications Qualified Code(s): B02.9 - Zoster without complications Is this a current diagnosis for this admission?: Yes Plan: He is started on acyclovir and gabapentin (2) Neck pain Is this a current diagnosis for this admission?: Yes (3) Cerebellar infarction Is this a current diagnosis for this admission?: Yes (4) Diabetes mellitus Qualifiers: Diabetes mellitus type: type 2 Diabetes mellitus skilled nursing insulin use: with skilled nursing use Diabetes mellitus complication status: with neurologic complications Diabetes mellitus complication detail: with polyneuropathy Qualified Code(s): E11.42 - Type 2 diabetes mellitus with diabetic polyneuropathy Is this a current diagnosis for this admission?: Yes (5) Hypothyroidism Qualifiers: Hypothyroidism type: unspecified Qualified Code(s): E03.9 - Hypothyroidism , unspecified Is this a current diagnosis for this admission?: Yes
--- NOTE | 2018-01-02 20:29 | PDOC DISCHARGE SUMMARY ---
General - Admit/Disc Date/PCP Admission Date/Primary Care Provider: 01/02/18 01:40 RADHA BROOKS MD Discharge Date: 01/02/18 - Discharge Diagnosis (1) Herpes zoster Is this a current diagnosis for this admission?: Yes (2) Neck pain Is this a current diagnosis for this admission?: Yes (3) Cerebellar infarction Is this a current diagnosis for this admission?: Yes (4) Diabetes mellitus Is this a current diagnosis for this admission?: Yes (5) Hypothyroidism Is this a current diagnosis for this admission?: Yes - Additional Information Resuscitation Status: Full Code Discharge Diet: Diabetic Discharge Activity: Activity As Tolerated, Balance Activity w/Rest, Slowly Increase Activity Prescriptions: Acyclovir [Acyclovir 400 mg Tablet] 800 mg PO 5XD #50 tablet Gabapentin 300 mg PO TID #90 capsule Home Medications: Atorvastatin Calcium [Lipitor 80 mg Tablet] 80 mg PO QHS 09/13/16 Carvedilol [Coreg 25 mg Tablet] 25 mg PO BID 09/13/16 Cyanocobalamin (Vitamin B-12) [Vitamin B-12 Inj 1000 Mcg/1 ml Vial] 1,000 mg SQ Q30D 09/13/16 Furosemide [Lasix 40 mg Tablet] 40 mg PO DAILY 09/13/16 Insulin Detemir [Levemir Insulin 100 units/mL] 25 units SQ QAM 09/13/16 Levothyroxine Sodium 200 mcg PO DAILY 09/13/16 Acyclovir [Acyclovir 400 mg Tablet] 800 mg PO 5XD #50 tablet 01/02/18 Dabigatran Etexilate Mesylate [Pradaxa 150 mg Capsule] 150 mg PO Q12 01/02/18 Empagliflozin/Metformin HCl [Synjardy 12.5-1,000 mg Tablet] 1 tab PO BID Ergocalciferol (Vitamin D2) [Vitamin D2] 50,000 unit PO FR@1000 01/02/18 Gabapentin 300 mg PO TID #90 capsule 01/02/18 Gabapentin [Neurontin 100 mg Capsule] 100 mg PO Q12 01/02/18 Losartan Potassium [Cozaar 100 mg Tablet] 100 mg PO DAILY 01/02/18 Spironolactone [Aldactone 25 mg Tablet] 25 mg PO BID 01/02/18 History of Present Illness History of Present Illness: HASEEB YAO JR is a 67 year old male, He came to the emergency room 4 evaluation of neck pain this is of acute onset, there is no chest pain in the emergency room he was evaluated it was felt that he may have a stroke because he has a history of cerebellar infarct, CT head was done which was negative but the emergency room physician want patient to have MRA and MRI of the brain and neck but this could not be done last night so she called me to have patient admitted to the hospital for further evaluation with MRI. MRI of the head was done this morning MRIA of the neck was done as well due to a negative for any acute pathology. When I saw this patient on on examination he has erythema of the posterior aspect of the neck with herpetiform rash with dermatomal pattern does suggest to me that he has shingles/herpes zoster Hospital Course Hospital Course: Patient with neck pain, associated erythematous rash ,herpes like rash with dermatomal distribution Physical Exam Vital Signs: Temp Pulse Resp BP Pulse Ox 97.7 F 65 16 145/79 H 95 01/02/18 19:37 01/02/18 19:37 01/02/18 19:37 01/02/18 19:37 01/02/18 19:37 Intake & Output 01/01/18 01/02/18 01/03/18 06:59 06:59 06:59 Weight 126.6 kg General appearance: PRESENT: no acute distress, well-developed, well-nourished Head exam: PRESENT: atraumatic, normocephalic Eye exam: PRESENT: conjunctiva pink, EOMI, PERRLA Ear exam: PRESENT: normal external ear exam Mouth exam: PRESENT: moist, tongue midline Neck exam: PRESENT: full ROM, other - There is rash in the posterior aspect of the neck with dermatomal distribution Respiratory exam: PRESENT: clear to auscultation sharlene Cardiovascular exam: PRESENT: RRR, +S1, +S2 Vascular exam: PRESENT: normal capillary refill GI/Abdominal exam: PRESENT: normal bowel sounds, soft Rectal exam: PRESENT: deferred Neurological exam: PRESENT: alert, awake, oriented to person, oriented to place , oriented to time, oriented to situation, CN II-XII grossly intact Psychiatric exam: PRESENT: appropriate affect, normal mood Skin exam: PRESENT: dry, intact, warm Results Laboratory Results: 01/02/18 05:44 01/02/18 05:44 01/02/18 01/02/18 05:44 05:44 WBC 8.0 RBC 4.22 L Hgb 13.0 L Hct 39.4 MCV 93 MCH 30.8 MCHC 33.0 RDW 13.3 Plt Count 227 Sodium 139.8 Potassium 4.3 Chloride 106 Carbon Dioxide 25 Anion Gap 9 BUN 20 Creatinine 0.92 Est GFR ( Amer) > 60 Est GFR (Non-Af Amer) > 60 Glucose 235 H Calcium 10.2 Total Bilirubin 0.9 AST 30 ALT 59 Alkaline Phosphatase 129 H Total Protein 6.6 Albumin 3.6 Impressions: Head CT 01/02/18 00:09 IMPRESSION: 1. No acute intracranial abnormality by CT criteria. This exam was performed according to our departmental dose-optimization program, which includes automated exposure control, adjustment of the mA and/or kV according to patient size and/or use of iterative reconstruction technique. Chest X-Ray 01/02/18 00:19 IMPRESSION: 1. No acute pulmonary process identified. Head MRI 01/02/18 01:13 IMPRESSION: 1. No acute intracranial abnormality. 2. Suspect some chronic changes in the posterior fossa to include mild small vessel disease in the upper brainstem as well as old tiny infarct in the right cerebellum. 3. Prominent posterior nasopharyngeal soft tissue. ENT consultation suggested. EVIDENCE OF ACUTE STROKE: NO. Neck MRA 01/02/18 01:16 IMPRESSION: NO SIGNIFICANT STENOSIS. Qualifiers - * PATIENT BEING DISCHARGED WITH ANY OF THE FOLLOWING DIAGNOSIS: No VTE patient discharged on overlapping Therapy?: Yes
[2018-01-02] MEDS ORDERED: EMPAGLIFLOZIN PO SCH (20:30)
[2018-01-02] MEDS ORDERED: METFORMIN HCL PO SCH (20:30)
[2018-01-02] MEDS ORDERED: [UNRECOGNIZED DRUG - OTHER] PO SCH (20:30)
[2018-01-02] MEDS ORDERED: LOSARTAN POTASSIUM 50 MG TABLET PO ONE (21:00)
[2018-01-02] MEDS: GABAPENTIN 300 MG CAPSULE PO SCH (21:39)
[2018-01-02] MEDS ORDERED: GABAPENTIN 100 MG CAPSULE PO SCH (22:00)
[2018-01-02] MEDS ORDERED: ATORVASTATIN CALCIUM 80 MG TABLET PO SCH (22:00)
[2018-01-02] MEDS ORDERED: SPIRONOLACTONE 25 MG TABLET PO SCH (22:00)
[2018-01-02] MEDS ORDERED: DABIGATRAN ETEXILATE 150 MG CAPSULE PO SCH (22:00)
[2018-01-03] MEDS: LEVOTHYROXINE SODIUM 0.1 MG TABLET PO SCH (06:04)
[2018-01-03] MEDS: GABAPENTIN 300 MG CAPSULE PO SCH (06:04)
[2018-01-03 06:06] LABS: HEMATOCRIT 38.8 % (37.9-51.0); HEMOGLOBIN 13.1 g/dL (13.5-17.0); MEAN CORPUSCULAR HEMOGLOBIN 31.2 pg (27.0-33.4); MEAN CORPUSCULAR HGB CONC 33.8 g/dL (32.0-36.0); MEAN CORPUSCULAR VOLUME 92 fl (80-97); PLATELET COUNT 229 10^3/uL (150-450); WHITE BLOOD COUNT 9.3 10^3/uL (4.0-10.5)
[2018-01-03] MEDS: INSULIN LISPRO 100 UNIT/ML 3 ML VIAL SUBCUT PRN (06:10)
[2018-01-03 06:35] LABS: ALANINE AMINOTRANSFERASE 54 U/L (21-72); ALBUMIN 3.4 g/dL (3.5-5.0); ALKALINE PHOSPHATASE 124 U/L (38-126); ANION GAP 11 (5-19); ASPARTATE AMINO TRANSFERASE 30 U/L (17-59); BILIRUBIN,DIRECT 0.3 mg/dL (0.0-0.4); BILIRUBIN,TOTAL 0.8 mg/dL (0.2-1.3); BLOOD UREA NITROGEN 24 mg/dL (7-20); CALCIUM 10.1 mg/dL (8.4-10.2); CARBON DIOXIDE 26 mmol/L (22-30); CHLORIDE 104 mmol/L (98-107); GLUCOSE 259 mg/dL (75-110); POTASSIUM 4.6 mmol/L (3.6-5.0); SODIUM 140.7 mmol/L (137-145); TOTAL PROTEIN 6.4 g/dL (6.3-8.2)
[2018-01-03] MEDS ORDERED: ACYCLOVIR 800 MG TABLET PO SCH (07:00)
[2018-01-03] MEDS: INSULIN DETEMIR 100 UNIT/ML 3 ML PEN SUBCUT SCH (07:56)
[2018-01-03 08:39] VITALS: BP 130/70
[2018-01-03] MEDS ORDERED: ERGOCALCIFEROL (VITAMIN D2) 50000 UNIT (1.25 MG) CAPSULE PO SCH (10:00)
[2018-01-03] MEDS ORDERED: LOSARTAN POTASSIUM 50 MG TABLET PO SCH (10:00)
[2018-01-03] MEDS ORDERED: CYANOCOBALAMIN (VITAMIN B-12) INJ 1000 MCG/1 ML VIAL SUBCUT SCH ×2 (10:00)
== END 2018-01-03 09:05 | disposition home or self-care (01) ==
LOC: ER 23:53 → EH 01-02 01:40 → INTOOBSV 01-02 01:40 → 4W 01-02 03:08
PROVIDERS: ADMIT Internal Medicine; ATTEND Internal Medicine
DX: B02.9 Zoster without complications (principal); M54.2 Cervicalgia; Z86.73 Personal history of transient ischemic attack (TIA), and cerebral infarction without residual deficits; E11.42 Type 2 diabetes mellitus with diabetic polyneuropathy; E03.9 Hypothyroidism, unspecified; M19.90 Unspecified osteoarthritis, unspecified site; R26.0 Ataxic gait; E66.9 Obesity, unspecified; I65.1 Occlusion and stenosis of basilar artery; Z68.41 Body mass index [BMI] 40.0-44.9, adult; I11.0 Hypertensive heart disease with heart failure; I50.9 Heart failure, unspecified; I48.91 Unspecified atrial fibrillation; I25.2 Old myocardial infarction; M25.473 Effusion, unspecified ankle; Z79.899 Other long term (current) drug therapy; Z79.4 Long term (current) use of insulin; Z90.49 Acquired absence of other specified parts of digestive tract; Z87.891 Personal history of nicotine dependence; Z82.49 Family history of ischemic heart disease and other diseases of the circulatory system; Z83.3 Family history of diabetes mellitus; Z98.890 Other specified postprocedural states
CPT/HCPCS: 93005; 99285; 36415 ×2; 82962 ×2; 85025; 85027 ×2; 85610; 80053 ×2; 84484; 83880; 70551; 70547; 71045; 70450; 93010; A9270 ×16; J3360; G0378; J1815; J3490

== ENCOUNTER → 2018-02-17 | Outpatient (CLI) | payer MEDICARE, OTHER ==
--- NOTE | 2018-02-18 06:47 | RADIOLOGY REPORT (SQ) ---
EXAM DESCRIPTION: CTA CHEST COMPLETED DATE/TIME: 02/17/2018 3:46 pm REASON FOR STUDY: I77.810 THORACIC AORTIC ECTASIA I77.810 THORACIC AORTIC ECTASIA COMPARISON: CT angio chest 08/25/2016, 04/08/2014, 10/02/2012 TECHNIQUE: CT scan of the chest performed using helical scanning technique with dynamic intravenous contrast injection. Images reviewed with lung, soft tissue and bone windows. Reconstructed coronal and sagittal MPR images reviewed. Additional 3 dimensional post-processing performed to develop Maximal Intensity Projection images (DC P). All images stored on PACS. All CT scanners at this facility use dose modulation, iterative reconstruction, and/or weight based d osing when appropriate to reduce radiation dose to as low as reasonably achievable (ALARA). [facility]: Dose Right [facility]: CareDose [facility]: Dose Right [facility]: Teradose 4D [facility]: [facility] CONTRAST TYPE AND DOSE: contrast/concentration: Isovue 370.00 mg/ml; Total Contrast Delivered: 63.0 ml; Total Saline Delivered: 80.0 ml Contrast bolus optimized for the pulmonary arteries. Contrast bolus is diagnostic aorta. RENAL FUNCTION: Creatinine 1.4 RADIATION DOSE: CT Rad equipment meets quality standard of care and radiation dose reduction techniq ues were employed. CTDIvol: 15.5 - 18.8 mGy. DLP: 585 mGy-cm. . LIMITATIONS: None. FINDINGS: LUNGS AND PLEURA: No masses, infiltrates, or pneumothorax. No pleural effusions or pleura l calcifications. AORTA AND GREAT VESSELS: No aneurysm. Ascending thoracic aorta 3.5 cm in diameter, similar compared to studies dating back to 2012. No thoracic aortic dissection. HEART: No pericardial effusion. No significant coronary artery calcifications. PULMONARY ARTERIES: No emboli visualized in the main pulmonary arteries or the segmental branches. HILAR AND MEDIASTINAL STRUCTURES: No identified masses or abnormal nodes. HARDWARE: None in the chest. UPPER ABDOMEN: No significant findings. Limited exam. THYROID AND OTHER SOFT TISSUES: No masses. No adenopathy. BONES: No acute or significant finding. 3D MIPS: Confirm above findings. OTHER: No other significant finding. IMPRESSION: NORMAL CTA OF THE CHEST. NO PULMONARY EMBOLI. COMMENT: Quality ID # [id number]: Final reports with documentation of one or more dose reduction techniques (e.g., Automated exposure control, adjustment of the mA and/or kV according to patient size, use of iterative reconstruction technique) TECHNICAL DOCUMENTATION: JOB ID: [id number] [employer]- All Rights Reserved Reading location - IP/workstation name: [facility]
== END ==
LOC: RAD 16:26
PROVIDERS: ATTEND Physician Assistant Medical
DX: I77.810 Thoracic aortic ectasia (principal)
CPT/HCPCS: 71275; 82565

== ENCOUNTER → 2018-05-13 | Outpatient (CLI) | payer MEDICARE, OTHER ==
--- NOTE | 2018-05-13 15:02 | RADIOLOGY REPORT (SQ) ---
EXAM DESCRIPTION: CT ABD/PELVIS NO ORAL OR IV COMPLETED DATE/TIME: 05/13/2018 2:47 pm REASON FOR STUDY: CALCULUS OF KIDNEY N20.0 CALCULUS OF KIDNEY COMPARISON: 04/08/2014 TECHNIQUE: CT scan of the abdomen and pelvis performed without intravenous or oral contrast. Images reviewed with lung, soft tissue, and bone windows. Reconstructed coronal and sagittal MPR images revi ewed. All images stored on PACS. All CT scanners at this facility use dose modulation, iterative reconstruction, and/or weight based d osing when appropriate to reduce radiation dose to as low as reasonably achievable (ALARA). [facility]: Dose Right [facility]: CareDose [facility]: Dose Right [facility]: Teradose 4D [facility]: [employer] RADIATION DOSE: CT Rad equipment meets quality standard of care and radiation dose reduction techniq ues were employed. CTDIvol: 24.6 mGy. DLP: 1424 mGy-cm.mGy. LIMITATIONS: None. FINDINGS: LOWER CHEST: No significant findings. No nodules or infiltrates. NON-CONTRASTED LIVER, SPLEEN, ADRENALS: Evaluation limited by lack of IV contrast. No identified sign ificant masses. PANCREAS: No masses. No peripancreatic inflammatory changes. GALLBLADDER: Surgically absent. RIGHT KIDNEY AND URETER: No suspicious masses. Assessment limited by lack of IV contrast. No signif icant calcifications. No hydronephrosis or hydroureter. LEFT KIDNEY AND URETER: No suspicious masses. Assessment limited by lack of IV contrast. No signifi cant calcifications. No hydronephrosis or hydroureter. AORTA AND RETROPERITONEUM: No aneurysm. No retroperitoneal masses or adenopathy. BOWEL AND PERITONEAL CAVITY: No obvious masses or inflammatory changes. No free fluid. APPENDIX: Normal. PELVIS, BLADDER, AND ABDOMINAL WALL:No abnormal masses. No free fluid. Bladder normal. BONES: No significant findings. OTHER: No other significant finding. IMPRESSION: NO ACUTE PROCESS IN THE ABDOMEN OR PELVIS. COMMENT: Quality ID # [id number]: Final reports with documentation of one or more dose reduction techniques (e.g., Automated exposure control, adjustment of the mA and/or kV according to patient size, use of iterative reconstruction technique) TECHNICAL DOCUMENTATION: JOB ID: [id number] [employer]- All Rights Reserved Reading location - IP/workstation name: [facility]
== END ==
LOC: RAD 13:58
PROVIDERS: ATTEND Internal Medicine
DX: N20.0 Calculus of kidney (principal)
CPT/HCPCS: 74176

== ENCOUNTER 2019-01-11 15:21 | Emergency (ER) | payer MEDICARE, OTHER ==
[2019-01-11] MEDS ORDERED: KETOROLAC TROMETHAMINE 60 MG/2 ML SDV IM ONE (16:22)
--- NOTE | 2019-01-11 16:24 | ER Document Report ---
ED Medical Screen (RME) - General Chief Complaint: Flank Pain Stated Complaint: BACK PAIN Time Seen by Provider: 01/11/19 16:18 Primary Care Provider: RADHA BROOKS MD [Primary Care Provider] - Follow up as needed TRAVEL OUTSIDE OF THE [place] IN LAST 30 DAYS: No - HPI Notes: 01/11/19 16:22 Patient is a 68-year-old male with history of previous kidney stones who presents complaining of right flank and low back pain that does not radiate. Patient states that movement does make his pain worse. Patient states that he has had pain similar to this when he had a stone before. He is otherwise eating and drinking without difficulty. He is urinating normally and having normal bowel movements. No history of spinal abscess. Denies any headache, fever, URI, sore throat, chest pain, palpitations, syncope, cough, shortness of breath, wheeze, dyspnea, abdominal pain, nausea/vomiting/diarrhea, urinary retention, dysuria, hematuria, loss of control of bowel or bladder, numbness/tingling, saddle anesthesia, muscle paralysis/weakness, or rash. Denies MCCORMICK, fever, neck pain, URI, CP, SOB, Abd pain, or rash. I have treated and performed a rapid initial assessment of this patient. A comprehensive ED assessment and evaluation of the patient, analysis of test results and completion of medical decision making process will be conducted by additional ED providers. PHYSICAL EXAMINATION: GENERAL: Well-appearing, well-nourished and in no acute distress. A&Ox4. Answers questions appropriately. LUNGS: Breath sounds clear to auscultation bilaterally and equal. No wheezes rales or rhonchi. HEART: Regular rate and rhythm without murmurs, rubs, gallops. ABDOMEN: Soft, nondistended abdomen. No guarding, no rebound. Normal bowel sounds present. No CVA tenderness bilaterally. Grossly nontender (cannot elicit thorough abd exam w/o table, however). Back: FROM. Strength 5+/5. No midline tenderness. + tenderness Rt L-paraspinal mm. SLR neg. No foot drop. Extremities: No cyanosis, clubbing, or edema b/l. NEUROLOGICAL: Normal speech, normal gait. PSYCH: Normal mood, normal affect. - Related Data Allergies/Adverse Reactions: No Known Allergies Allergy (Verified 01/11/19 15:25) Past Medical History - Social History Chew tobacco use (# tins/day): No Frequency of alcohol use: None Drug Abuse: None - Past Medical History Cardiac Medical History: Reports: Hx Atrial Fibrillation, Hx Congestive Heart Failure, Hx Heart Attack, Hx Hypercholesterolemia, Hx Hypertension Denies: Hx Coronary Artery Disease, Hx Peripheral Vascular Disease, Hx Heart Murmur Pulmonary Medical History: Reports: Hx Sleep Apnea Denies: Hx Asthma, Hx Bronchitis, Hx COPD, Hx Pneumonia, Hx Tuberculosis Neurological Medical History: Reports: Hx Cerebrovascular Accident. Denies: Hx Seizures Endocrine Medical History: Reports: Hx Diabetes Mellitus Type 1, Hx Diabetes Mellitus Type 2, Hx Hypothyroidism. Denies: Hx Graves' Disease, Hx Hyperthyroidism Renal/ Medical History: Reports: Hx Kidney Stones. Denies: Hx Benign Prostatic Hyperplasia, Hx End Stage Renal Disease, Hx Peritoneal Dialysis GI Medical History: Reports: Hx Diverticulitis, Hx Colonoscopy, Hx Endoscopy. Denies: Hx Crohn's Disease, Hx Gastroesophageal Reflux Disease, Hx Hiatal Hernia, Hx Irritable Bowel, Hx Liver Failure, Hx Pancreatitis, Hx Ulcer Musculoskeltal Medical History: Reports Hx Arthritis, Denies Hx Fibromyalgia, Denies Hx Multiple Sclerosis, Denies Hx Muscular Dystrophy, Reports Hx Musculoskeletal Trauma - Tendons torn in his knee right, Denies Hx Systemic Lupus Erythematosus Psychiatric Medical History: Reports: Hx Depression Denies: Hx Dementia Traumatic Medical History: Denies: Hx Fractures Past Surgical History: Reports: Hx Cardiac Catheterization, Hx Cardiac Surgery - cath, Hx Cholecystectomy, Hx Orthopedic Surgery - right knee. Denies: Hx Colostomy, Hx Pacemaker - Immunizations Immunizations up to date: Yes Hx Diphtheria, Pertussis, Tetanus Vaccination: Yes History of Influenza Vaccine for 05/2017 - 10/2017 Season: Unknown Physical Exam - Vital signs Vitals: Temp Pulse Resp BP Pulse Ox 98.2 F 74 18 155/81 H 96 01/11/19 15:36 01/11/19 15:36 01/11/19 15:36 01/11/19 15:36 01/11/19 15:36 Course - Vital Signs Vital signs: Temp Pulse Resp BP Pulse Ox 98.2 F 74 18 155/81 H 96 01/11/19 15:36 01/11/19 15:36 01/11/19 15:36 01/11/19 15:36 01/11/19 15:36 Doctor's Discharge - Discharge Referrals: RADHA BROOKS MD [Primary Care Provider] - Follow up as needed
--- NOTE | 2019-01-11 17:06 | ER Document Report ---
ED GI/ - General Chief Complaint: Flank Pain Stated Complaint: BACK PAIN Time Seen by Provider: 01/11/19 16:18 Primary Care Provider: RADHA BROOKS MD [Primary Care Provider] - Follow up as needed Mode of Arrival: Ambulatory Information source: Patient TRAVEL OUTSIDE OF THE [place] IN LAST 30 DAYS: No - HPI Patient complains to provider of: Other - BACK PAIN Notes: 01/11/19 17:02 Patient here with complaints of right-sided back pain. This started about 10 days ago. Pain is been constant, moderate, worse with movement and better with rest. He denies any traumatic injury or fall. He does have a history of kidney stones. He denies any abdominal pain. He denies any nausea, vomiting, diarr hea. No dysuria or hematuria. Gallbladder has been removed. No chest pain or shortness of breath. No bowel or bladder dysfunction. No fever. No IV drug use. States that he does take a blood thinning medication, but he cannot recall the name of it. He denies any headache, blurred vision, unilateral numbness, tingling, weakness. No rash. His also states that she feels like his legs are more swollen than normal but this is been ongoing for quite some time. No other specific complaints at this time. - Related Data Allergies/Adverse Reactions: No Known Allergies Allergy (Verified 01/11/19 15:25) Past Medical History - Social History Smoking Status: Unknown if Ever Smoked Chew tobacco use (# tins/day): No Frequency of alcohol use: None Drug Abuse: None Family History: CAD, DM, Hyperlipidemia, Hypertension, Malignancy Patient has suicidal ideation: No Patient has homicidal ideation: No - Past Medical History Cardiac Medical History: Reports: Hx Atrial Fibrillation, Hx Congestive Heart Failure, Hx Heart Attack, Hx Hypercholesterolemia, Hx Hypertension Denies: Hx Coronary Artery Disease, Hx Peripheral Vascular Disease, Hx Heart Murmur Pulmonary Medical History: Reports: Hx Sleep Apnea Denies: Hx Asthma, Hx Bronchitis, Hx COPD, Hx Pneumonia, Hx Tuberculosis Neurological Medical History: Reports: Hx Cerebrovascular Accident. Denies: Hx Seizures Endocrine Medical History: Reports: Hx Diabetes Mellitus Type 1, Hx Diabetes Mellitus Type 2, Hx Hypothyroidism. Denies: Hx Graves' Disease, Hx Hyp erthyroidism Renal/ Medical History: Reports: Hx Kidney Stones. Denies: Hx Benign Prostatic Hyperplasia, Hx End Stage Renal Disease, Hx Peritoneal Dialysis GI Medical History: Reports: Hx Diverticulitis, Hx Colonoscopy, Hx Endoscopy. Denies: Hx Crohn's Disease, Hx Gastroesophageal Reflux Disease, Hx Hiatal Hernia, Hx Irritable Bowel, Hx Liver Failure, Hx Pancreatitis, Hx Ulcer Musculoskeletal Medical History: Reports Hx Arthritis, Denies Hx Fibromyalgia, Denies Hx Multiple Sclerosis, Denies Hx Muscular Dystrophy, Reports Hx Musculoskeletal Trauma - Tendons torn in his knee right, Denies Hx Systemic Lupus Erythematosus Psychiatric Medical History: Reports: Hx Depression Denies: Hx Dementia Traumatic Medical History: Denies: Hx Fractures Past Surgical History: Reports: Hx Cardiac Catheterization, Hx Cardiac Surgery - cath, Hx Cholecystectomy, Hx Orthopedic Surgery - right knee. Denies: Hx Colostomy, Hx Pacemaker - Immunizations Immunizations up to date: Yes Hx Diphtheria, Pertussis, Tetanus Vaccination: Yes Hx Pneumococcal Vaccination: 07/19/17 Review of Systems - Review of Systems -: Yes All other systems reviewed and negative Physical Exam - Vital signs Vitals: Temp Pulse Resp BP Pulse Ox 98.2 F 74 18 155/81 H 96 01/11/19 15:36 01/11/19 15:36 01/11/19 15:36 01/11/19 15:36 01/11/19 15:36 - Notes Notes: GENERAL: alert, cooperative, nontoxic, no distress. HEAD: normocephalic, atraumatic EYES: conjunctiva pink without discharge, no external redness or swelling. EARS: no external swelling, no external redness NOSE: atraumatic, no external swelling MOUTH/THROAT: mucous membranes moist and pink, posterior pharynx without erythema, swelling, exudate. No trismus or drooling. NECK: soft, supple, full range of motion, no meningismus. CHEST: no distress, lungs clear and equal throughout. No wheezing, rales, rhonchi. CARDIAC: regular rate and rhythm, no murmur, normal capillary refill, normal pulses. Trace pitting edema of the bilateral lower extremities. ABDOMEN: soft, nontender, no pusatile mass. BACK: No CVA tenderness. Tenderness along the right thoracic/lumbar paraspinal muscles. No rash. No midline tenderness, step-offs or crepitus. EXTREMITIES: full range of motion of all extremities. No redness. NEURO: alert and oriented A&O x 3, no focal deficits, full range of motion of all extremities. 5 out of 5 flexion and extension of the lower extremities bilaterally. Patellar and Achilles deep tendon reflexes are +2 bilaterally. Normal sensation with no saddle anesthesia. Patient can dorsiflex the great toe s bilaterally. PYSCH: appropriate mood, affect. Patient is cooperative. SKIN: pink, warm, dry, no rash. Course - Re-evaluation Re-evalutation: 01/11/19 18:54 Patient is resting comfortably at this time. He states he is feeling better at this time. Patient here with some complaints of some right sided flank/back pain for the last 10 days. The pain is worse with movement as well as palpation of the musculature in this area. Urinalysis shows no signs of infection. Chemistries are normal, normal BNP, LFTs, lipase. Chest x-ray shows no significant acute findings. CT the abdomen pelvis shows some trace fluid with no acute findings. Pain is reproducible along the musculature and appears to be musculoskeletal in nature. No chest pain or shortness of breath. Blood sugars 295, he states that is normal for him. He is not in DKA. This point patient can be discharged home with Naprosyn and Zanaflex with instructions to follow-up with his primary care doctor at the next available appointment. This point he has no sign of cauda equina, epidural abscess/bleed, discitis, osteomyelitis, pyelonephritis, AAA. Follow-up sooner for any worsening symptoms or further concerns. The patient's emergency department workup and current diagnosis were explained to the patient and or family. Follow-up instructions were provided. Medications if prescribed were discussed. Instructions for when to return to the emergency department including specific worrisome symptoms were discussed with the patient and/or family. - Vital Signs Vital signs: Temp Pulse Resp BP Pulse Ox 98.2 F 74 18 155/81 H 96 01/11/19 15:36 01/11/19 15:36 01/11/19 15:36 01/11/19 15:36 01/11/19 15:36 - Laboratory Result Diagrams: 01/11/19 17:40 01/11/19 17:40 Laboratory results interpreted by me: 01/11/19 01/11/19 01/11/19 16:45 17:40 17:40 RBC 4.04 L Hgb 12.5 L Glucose 295 H Urine Protein 100 H Urine Glucose (UA) >=500 H Urine Blood SMALL H Discharge - Discharge Clinical Impression: Right flank pain Condition: Stable Disposition: HOME, SELF-CARE Instructions: Flank Pain ([facility]) Additional Instructions: Take meds as prescribed. Apply ice or heat to the sore area. Follow-up with your primary care doctor at the next available appointment. Follow-up sooner for worsening pain, fever, numbness, tingling, weakness, difficulty controlling bowels or bladder, abdominal pain, persistent vomiting, or for any further concerns. Prescriptions: Naproxen [Naprosyn] 500 mg PO BID #20 tablet Tizanidine HCl [Zanaflex 4 Mg Tablet] 4 mg PO BID PRN #10 tablet PRN Reason: Forms: Elevated Blood Pressure, Smoking Cessation Education Referrals: RADHA BROOKS MD [Primary Care Provider] - Follow up as needed
[2019-01-11] MEDS ORDERED: KETOROLAC TROMETHAMINE INJ/PF 30 MG/1 ML SDV IV ONE (17:14)
[2019-01-11 17:18] LABS: APPEARANCE,URINE CLEAR; BILIRUBIN,URINE NEGATIVE (NEGATIVE); COLOR,URINE STRAW; GLUCOSE, URINE >=500 mg/dL (NEGATIVE); KETONES,URINE NEGATIVE (NEGATIVE); LEUKOCYTE ESTERASE,URINE NEGATIVE (NEGATIVE); NITRITE,URINE NEGATIVE (NEGATIVE); PROTEIN,URINE 100 mg/dL (NEGATIVE); URINE SPECIFIC GRAVITY 1.037; UROBILINOGEN,URINE NEGATIVE mg/dL (<2.0)
--- NOTE | 2019-01-11 17:24 | RADIOLOGY REPORT (SQ) ---
EXAM DESCRIPTION: CHEST 2 VIEWS COMPLETED DATE/TIME: 01/11/2019 5:12 pm REASON FOR STUDY: leg swelling COMPARISON: 12/21/2016 EXAM PARAMETERS: NUMBER OF VIEWS: two views TECHNIQUE: Digital Frontal and Lateral radiographic views of the chest acquired. RADIATION DOSE: NA LIMITATIONS: none FINDINGS: LUNGS AND PLEURA: Minimal diffuse bilateral interstitial pulmonary opacity. MEDIASTINUM AND HILAR STRUCTURES: No masses or contour abnormalities. HEART AND VASCULAR STRUCTURES: Cardiomegaly. BONES: No acute findings. HARDWARE: None in the chest. OTHER: No other significant finding. IMPRESSION: Minimal diffuse bilateral interstitial pulmonary opacity, likely minimal edema in the se tting of cardiomegaly. No focal airspace opacity. TECHNICAL DOCUMENTATION: JOB ID: [id number] [employer]- All Rights Reserved Reading location - IP/workstation name: [email or web address]
[2019-01-11 18:02] LABS: ABSOLUTE EOSINOPHILS # (AUTO) 0.1 10^3/uL (0.0-0.6); ABSOLUTE LYMPHOCYTES (AUTO) 2.1 10^3/uL (0.5-4.7); ABSOLUTE MONOCYTES (AUTO) 0.4 10^3/uL (0.1-1.4); ABSOLUTE NEUT (AUTO) 3.3 10^3/uL (1.7-8.2); BASOPHILS % (AUTO) 0.6 % (0-2); EOSINOPHILS % (AUTO) 1.8 % (0-6); HEMATOCRIT 38.6 % (37.9-51.0); HEMOGLOBIN 12.5 g/dL (13.5-17.0); LYMPHOCYTES % (AUTO) 34.9 % (13-45); MEAN CORPUSCULAR HEMOGLOBIN 30.9 pg (27.0-33.4); MEAN CORPUSCULAR HGB CONC 32.4 g/dL (32.0-36.0); MEAN CORPUSCULAR VOLUME 96 fl (80-97); MONOCYTES % (AUTO) 7.2 % (3-13); PLATELET COUNT 226 10^3/uL (150-450); RED BLOOD COUNT 4.04 10^6/uL (4.35-5.55); RED CELL DISTRIBUTION WIDTH 13.2 % (11.5-14.0); SEGMENTED NEUTROPHILS % (AUTO) 55.5 % (42-78); TOTAL CELLS COUNTED % (AUTO) 100 %
--- NOTE | 2019-01-11 18:06 | RADIOLOGY REPORT (SQ) ---
EXAM DESCRIPTION: CT ABD/PELVIS NO ORAL OR IV COMPLETED DATE/TIME: 01/11/2019 5:41 pm REASON FOR STUDY: Rt flank/low back pain COMPARISON: 05/13/2018 TECHNIQUE: CT scan of the abdomen and pelvis performed without intravenous or oral contrast. Images reviewed with lung, soft tissue, and bone windows. Reconstructed coronal and sagittal MPR images revi ewed. All images stored on PACS. All CT scanners at this facility use dose modulation, iterative reconstruction, and/or weight based d osing when appropriate to reduce radiation dose to as low as reasonably achievable (ALARA). [facility]: Dose Right [facility]: CareDose [facility]: Dose Right [facility]: Teradose 4D [facility]: Smart Storyz RADIATION DOSE: CT Rad equipment meets quality standard of care and radiation dose reduction techniq ues were employed. CTDIvol: 17.4 mGy. DLP: 936 mGy-cm.mGy. LIMITATIONS: None. FINDINGS: LOWER CHEST: No significant findings. No nodules or infiltrates. NON-CONTRASTED LIVER, SPLEEN, ADRENALS: Evaluation limited by lack of IV contrast. No identified sign ificant masses. PANCREAS: No masses. No peripancreatic inflammatory changes. GALLBLADDER: Surgically absent. RIGHT KIDNEY AND URETER: No suspicious masses. Assessment limited by lack of IV contrast. No signif icant calcifications. No hydronephrosis or hydroureter. LEFT KIDNEY AND URETER: No suspicious masses. Assessment limited by lack of IV contrast. No signifi cant calcifications. No hydronephrosis or hydroureter. AORTA AND RETROPERITONEUM: No aneurysm. No retroperitoneal masses or adenopathy. BOWEL AND PERITONEAL CAVITY: No obvious masses or inflammatory changes. No free fluid. Scattered jin colonic diverticulosis. Small volume fluid in the right paracolic gutter. APPENDIX: Normal. PELVIS, BLADDER, AND ABDOMINAL WALL:No abnormal masses. No free fluid. Bladder normal. BONES: No significant findings. OTHER: No other significant finding. IMPRESSION: Nonspecific small volume fluid in the right paracolic gutter. Normal appendix. No spec ific noncontrast findings to explain right flank pain. No evidence of urinary tract calculus or hydr onephrosis. COMMENT: Quality ID # [id number]: Final reports with documentation of one or more dose reduction techniques (e.g., Automated exposure control, adjustment of the mA and/or kV according to patient size, use of iterative reconstruction technique) TECHNICAL DOCUMENTATION: JOB ID: [id number] [employer]- All Rights Reserved Reading location - IP/workstation name: [email or web address]
[2019-01-11 18:18] LABS: ALANINE AMINOTRANSFERASE 32 U/L (21-72); ALBUMIN 3.9 g/dL (3.5-5.0); ALKALINE PHOSPHATASE 94 U/L (38-126); ANION GAP 7 (5-19); ASPARTATE AMINO TRANSFERASE 25 U/L (17-59); BILIRUBIN,DIRECT 0.2 mg/dL (0.0-0.4); BILIRUBIN,TOTAL 1.2 mg/dL (0.2-1.3); BLOOD UREA NITROGEN 14 mg/dL (7-20); CALCIUM 10.2 mg/dL (8.4-10.2); CARBON DIOXIDE 28 mmol/L (22-30); CHLORIDE 105 mmol/L (98-107); GLUCOSE 295 mg/dL (75-110); LIPASE 124.2 U/L (23-300); POTASSIUM 4.2 mmol/L (3.6-5.0); SODIUM 140.4 mmol/L (137-145)
[2019-01-11] MEDS ORDERED: MORPHINE SULFATE 10 MG/ML INJ IV ONE (18:21)
[2019-01-11] MEDS ORDERED: ONDANSETRON HCL INJ/PF 4 MG/2 ML SDV IV ONE (18:34)
[2019-01-11 19:05] VITALS: BP 149/80
== END 2019-01-11 19:27 | disposition home or self-care (01) ==
LOC: ER 15:21
DX: R10.9 Unspecified abdominal pain (principal); M54.9 Dorsalgia, unspecified; I48.91 Unspecified atrial fibrillation; I50.9 Heart failure, unspecified; E78.00 Pure hypercholesterolemia, unspecified; I11.0 Hypertensive heart disease with heart failure; E11.9 Type 2 diabetes mellitus without complications; Z86.73 Personal history of transient ischemic attack (TIA), and cerebral infarction without residual deficits; Z87.442 Personal history of urinary calculi; Z90.49 Acquired absence of other specified parts of digestive tract; I25.2 Old myocardial infarction
CPT/HCPCS: 99284; 96374; 96375; 36415; 83690; 85025; 80053; 81001; 83880; 71046; 74176; J1885; J2270; J2405

== ENCOUNTER 2019-03-22 | Emergency (ER) | payer MEDICARE ==
[2019-03-22 00:21] VITALS: BP 175/96
== END 2019-03-22 00:19 | disposition left against medical advice (07) ==
LOC: ER
DX: Z53.21 Procedure and treatment not carried out due to patient leaving prior to being seen by health care provider (principal)

== ENCOUNTER 2019-08-19 07:17 | Emergency (ER) | payer MEDICARE, OTHER ==
[2019-08-19 07:27] VITALS: BP 147/68
--- NOTE | 2019-08-19 09:30 | ER Document Report ---
HPI - HPI Time Seen by Provider: 08/19/19 09:11 Context: Very pleasant 68-year-old male with history of CVA, unprotected brain aneurysm monitored yearly, hypertension, lpq-erbekjn-moamfpatb diabetes mellitus, and diabetic neuropathy presents the emergency department with acute left lateral ankle pain since 4 AM this morning. The pain woke him up. Denies trauma or any preceding injury in prior days. Patient is able to ambulate. Patient denies any fevers or chills, denies any body aches or myalgias, denies any unilateral leg swelling, denies discoloration of the leg, ankle, foot. No shortness of breath, no recent immobilization or surgeries in the last month, patient does not have cancer. Patient is on Pradaxa - REPRODUCTIVE Reproductive: DENIES: : - MUSCULOSKELETAL Musculoskeletal: REPORTS: Extremity pain - Left Ankle Past Medical History - Social History Smoking Status: Never Smoker Chew tobacco use (# tins/day): No Frequency of alcohol use: None Family History: CAD, DM, Hyperlipidemia, Hypertension, Malignancy Patient has suicidal ideation: No Patient has homicidal ideation: No - Past Medical History Cardiac Medical History: Reports: Hx Atrial Fibrillation, Hx Congestive Heart Failure, Hx Heart Attack, Hx Hypercholesterolemia, Hx Hypertension Denies: Hx Coronary Artery Disease, Hx Peripheral Vascular Disease, Hx Heart Murmur Pulmonary Medical History: Reports: Hx Sleep Apnea Denies: Hx Asthma, Hx Bronchitis, Hx COPD, Hx Pneumonia, Hx Tuberculosis Neurological Medical History: Reports: Hx Cerebrovascular Accident. Denies: Hx Seizures, Hx Parkinson's Disease Endocrine Medical History: Reports: Hx Diabetes Mellitus Type 1, Hx Diabetes Mellitus Type 2, Hx Hypothyroidism. Denies: Hx Graves' Disease, Hx Hyperthyroidism Renal/ Medical History: Reports: Hx Kidney Stones. Denies: Hx Benign Prostatic Hyperplasia, Hx End Stage Renal Disease, Hx Peritoneal Dialysis GI Medical History: Reports: Hx Diverticulitis, Hx Colonoscopy, Hx Endoscopy. Denies: Hx Crohn's Disease, Hx Gastroesophageal Reflux Disease, Hx Hiatal Hernia, Hx Irritable Bowel, Hx Liver Failure, Hx Pancreatitis, Hx Ulcer Musculoskeletal Medical History: Reports Hx Arthritis, Denies Hx Fibromyalgia, Denies Hx Multiple Sclerosis, Denies Hx Muscular Dystrophy, Reports Hx Musculoskeletal Trauma - Tendons torn in his knee right, Denies Hx Systemic Lupus Erythematosus Psychiatric Medical History: Reports: Hx Depression Denies: Hx Dementia Traumatic Medical History: Denies: Hx Fractures Past Surgical History: Reports: Hx Cardiac Catheterization, Hx Cardiac Surgery - cath, Hx Cholecystectomy, Hx Orthopedic Surgery - right knee. Denies: Hx Colostomy, Hx Pacemaker - Immunizations Immunizations up to date: Yes Hx Diphtheria, Pertussis, Tetanus Vaccination: Yes Hx Pneumococcal Vaccination: 07/19/17 Vertical Provider Document - CONSTITUTIONAL Notes: PHYSICAL EXAMINATION: Reviewed vital signs and charting by RN GENERAL: Alert, interacts well. No acute distress. HEAD: Normocephalic, atraumatic. EYES: Pupils equal and round. Extraocular movements intact. ENT: Oral mucosa moist, tongue midline. NECK: Full range of motion. Trachea midline. EXTREMITIES: Moves all 4 extremities spontaneously. No edema, No cyanosis. Tenderness to palpation over the left anterior lateral malleolus and soft tissue anterior, no ecchymosis PSYCH: Normal affect, normal mood. SKIN: Warm, dry, normal turgor. No rashes or lesions noted. - INFECTION CONTROL TRAVEL OUTSIDE OF THE [place] IN LAST 30 DAYS: No Course - Re-evaluation Re-evalutation: 08/19/19 09:31 I suspect this is diabetic neuropathy and instructed the patient to double his gabapentin dose for the next day and follow-up with Dr. Brooks in the office in the morning. I have very low suspicion for DVT or any hypercoagulable condition. Patient is able to ambulate. Strict instructions have been given and strict return precautions given. He is stable for discharge. - Vital Signs Vital signs: Temp Pulse Resp BP Pulse Ox 97.6 F 71 18 147/68 H 94 08/19/19 07:22 08/19/19 07:22 08/19/19 07:22 08/19/19 07:22 08/19/19 07:22 Discharge - Discharge Clinical Impression: Left ankle pain Qualifiers: Chronicity: acute Qualified Code(s): M25.572 - Pain in left ankle and joints of left foot Condition: Good Disposition: HOME, SELF-CARE Additional Instructions: You were seen in the emergency department today for left ankle pain. Because there was no trauma it is most likely diabetic neuropathy. For today please double your gabapentin dose to 200 mg in the afternoon and evening then follow- up with Dr. Brooks in the morning to discuss medication changes if necessary. Also, please take Tylenol 1000 mg every 6 hours for pain. You can rest and elevate your foot as needed. Please return to the emergency department if you develop swelling of the leg, severe pain in your leg, you develop fevers with the symptoms, your ankle or foot starts to become discolored like it is losing circulation, or you have any other concerning symptoms. Referrals: RADHA BROOKS MD [Primary Care Provider] - Follow up as needed
[2019-08-19] MEDS ORDERED: ACETAMINOPHEN 325 MG TABLET PO ONE (09:32)
== END 2019-08-19 09:38 | disposition home or self-care (01) ==
LOC: ER 07:17
DX: M25.572 Pain in left ankle and joints of left foot (principal); E11.9 Type 2 diabetes mellitus without complications; I48.91 Unspecified atrial fibrillation; Z87.442 Personal history of urinary calculi; Z90.49 Acquired absence of other specified parts of digestive tract; Z86.73 Personal history of transient ischemic attack (TIA), and cerebral infarction without residual deficits
CPT/HCPCS: 99283; A9270

== ENCOUNTER → 2020-01-19 | Outpatient (CLI) | payer MEDICARE, OTHER ==
--- NOTE | 2020-01-19 15:04 | RADIOLOGY REPORT (SQ) ---
EXAM DESCRIPTION: SHOULDER RIGHT 2 OR MORE VIEWS IMAGES COMPLETED DATE/TIME: 01/19/2020 2:09 pm REASON FOR STUDY: PAIN IN RIGHT SHOULDER M25.511 PAIN IN RIGHT SHOULDER COMPARISON: None. NUMBER OF VIEWS: Two views. TECHNIQUE: Frontal and lateral images acquired of the right shoulder. LIMITATIONS: None. FINDINGS: MINERALIZATION: Normal. BONES: No acute fracture. No worrisome bone lesions. JOINTS: No dislocation. VISUALIZED LUNGS AND RIBS: No pneumothorax. No rib fracture. SOFT TISSUES: No radiopaque foreign body. OTHER: No other significant finding. IMPRESSION: NEGATIVE STUDY OF THE RIGHT SHOULDER. NO RADIOGRAPHIC EVIDENCE OF ACUTE INJURY. TECHNICAL DOCUMENTATION: JOB ID: [id number] [employer]- All Rights Reserved Reading location - IP/workstation name: [email or web address]
== END ==
LOC: RAD 13:56
PROVIDERS: ATTEND Internal Medicine
DX: M25.511 Pain in right shoulder (principal)

== ENCOUNTER 2020-02-07 05:34 | Emergency (ER) | payer MEDICARE, OTHER ==
[2020-02-07 05:44] VITALS: BP 159/90
--- NOTE | 2020-02-07 07:42 | RADIOLOGY REPORT (SQ) ---
Right shoulder three view on 02/07/2020 at 7:05 AM CLINICAL INDICATION: Right shoulder pain COMPARISON: 01/19/2020 FINDINGS: Minimal degenerative changes are noted in the AC joint. The AC joint is well aligned. The glenohumeral joint is well located. There are no fractures. No other bony abnormality is noted. IMPRESSION: No acute abnormality.
[2020-02-07] MEDS ORDERED: ACETAMINOPHEN 325 MG TABLET PO ONE (07:50)
--- NOTE | 2020-02-07 07:54 | RADIOLOGY REPORT (SQ) ---
EXAM DESCRIPTION: XR CERVICAL SPINE 2 - 3 VIEWS COMPLETED DATE/TME: 02/07/2020 06:53 CLINICAL HISTORY: 69 years Male, pain COMPARISON: MRA neck January 02, 2018. Findings: Moderate C5-C6 disc bulge/osteophyte complex. Straightening of the cervical spine. 0.2 cm degenerative C5 retrolisthesis. 1.1 cm amorphous calcification at the left paracentral neck, C4 level probably atherosclerotic. Vertebral heights are maintained. Extraspinal structures are grossly intact. IMPRESSION: 1. No acute findings. 2. Moderate C5-C6 disc bulge/osteophyte complex.
--- NOTE | 2020-02-07 07:57 | ER Document Report ---
Entered by DAPHNE HYATT SCRIBE 02/07/20 0652 Acting as scribe for:GUILLERMO ALEXANDRE MD ED Extremity Problem, Upper - General Chief Complaint: Shoulder Pain Stated Complaint: RIGHT SHOULDER PAIN Time Seen by Provider: 02/07/20 06:32 Primary Care Provider: RADHA BROOKS MD [Primary Care Provider] - Follow up as needed Mode of Arrival: Ambulatory Information source: Patient Notes: This 69-year-old male patient presents to the emergency department today with complaints of right upper extremity pain. Patient states that x4 days ago he was walking across his front yard with a trash can and it went into a hole and "pulled something out of place". Patient went to his primary care physician immediately after this and they gave him diclofenac gel which he states has not helped. TRAVEL OUTSIDE OF THE [place] IN LAST 30 DAYS: No - Related Data Allergies/Adverse Reactions: No Known Allergies Allergy (Verified 02/07/20 06:03) Past Medical History - General Information source: Patient - Social History Smoking Status: Never Smoker Cigarette use (# per day): No Frequency of alcohol use: None Drug Abuse: None Lives with: Family Family History: Reviewed & Not Pertinent, CAD, DM, Hyperlipidemia, Hypertension, Malignancy Patient has homicidal ideation: No - Past Medical History Cardiac Medical History: Reports: Hx Atrial Fibrillation, Hx Congestive Heart Failure, Hx Heart Attack, Hx Hypercholesterolemia, Hx Hypertension Pulmonary Medical History: Reports: Hx Sleep Apnea Neurological Medical History: Reports: Hx Cerebrovascular Accident Endocrine Medical History: Reports: Hx Diabetes Mellitus Type 1, Hx Diabetes Mellitus Type 2, Hx Hypothyroidism Renal/ Medical History: Reports: Hx Kidney Stones GI Medical History: Reports: Hx Diverticulitis, Hx Colonoscopy, Hx Endoscopy Musculoskeletal Medical History: Reports Hx Arthritis, Reports Hx Musculoskeletal Trauma - Tendons torn in his knee right Psychiatric Medical History: Reports: Hx Depression Past Surgical History: Reports: Hx Cardiac Catheterization, Hx Cardiac Surgery - cath, Hx Cholecystectomy, Hx Orthopedic Surgery - right knee - Immunizations Immunizations up to date: Yes Hx Diphtheria, Pertussis, Tetanus Vaccination: Yes Hx Pneumococcal Vaccination: 07/19/17 Review of Systems - Review of Systems Constitutional: No symptoms reported EENT: No symptoms reported Cardiovascular: No symptoms reported Respiratory: No symptoms reported Gastrointestinal: No symptoms reported Genitourinary: No symptoms reported Male Genitourinary: No symptoms reported Musculoskeletal: See HPI, Joint pain, Muscle pain, Muscle stiffness Skin: No symptoms reported Hematologic/Lymphatic: No symptoms reported Neurological/Psychological: No symptoms reported -: Yes All other systems reviewed and negative Physical Exam - Vital signs Vitals: Temp Pulse Resp BP Pulse Ox 98.3 F 76 18 159/90 H 96 02/07/20 05:44 02/07/20 05:44 02/07/20 05:44 02/07/20 05:44 02/07/20 05:44 - Notes Notes: Physical Exam: General: Alert, appears well. HEENT: Normocephalic. Atraumatic. PERRL. Extraocular movements intact. Oropharynx clear. Neck: Supple. No midline tenderness, right sided paraspinal tenderness with palpation. Respiratory: No respiratory distress. Clear and equal breath sounds bilaterally. Cardiovascular: Regular rate and rhythm. Abdominal: Normal Inspection. Non-tender. No distension. Normal Bowel Sounds. Back: No gross abnormalities. Extremities: Moves all four extremities. Upper extremities: Right sided supraclavicular musculature tightness. Lower extremities: Normal inspection. No edema. Normal ROM. Neurological: Normal cognition. AAOx4. Normal speech. Psychological: Normal affect. Normal Mood. Skin: Warm. Dry. Normal color. Course - Re-evaluation Re-evalutation: 02/07/20 07:51 Patient sleeping in room easily aroused - Vital Signs Vital signs: Temp Pulse Resp BP Pulse Ox 98.3 F 76 18 159/90 H 96 02/07/20 06:03 02/07/20 05:44 02/07/20 05:44 02/07/20 05:44 02/07/20 05:44 02/07/20 07:51 Vital signs as above patient has a history of hypertension blood pressure is 159/90 - Diagnostic Test Radiology reviewed: Image reviewed, Reports reviewed Radiology results interpreted by me: 02/07/20 07:52 Right shoulder AC joint arthritic changes otherwise no acute process no fracture no dislocation. C-spine shows straightening of C-spine there is some noted anterior spurring no acute fracture mild narrowing of disc spaces. No fracture seen Discharge - Discharge Clinical Impression: Neck muscle spasm, Right shoulder pain, Cervicalgia Condition: Stable Disposition: HOME, SELF-CARE Prescriptions: Cyclobenzaprine HCl [Flexeril 10 mg Tablet] 10 mg PO TIDP PRN #15 tab PRN Reason: Forms: Elevated Blood Pressure Referrals: RADHA BROOKS MD [Primary Care Provider] - Follow up as needed I personally performed the services described in the documentation, reviewed and edited the documentation which was dictated to the scribe in my presence, and it accurately records my words and actions.
== END 2020-02-07 08:18 | disposition home or self-care (01) ==
LOC: ER 05:34
DX: M54.2 Cervicalgia (principal); M62.838 Other muscle spasm; M25.511 Pain in right shoulder; X50.9XXA Other and unspecified overexertion or strenuous movements or postures, initial encounter; I50.9 Heart failure, unspecified; I25.2 Old myocardial infarction; I11.0 Hypertensive heart disease with heart failure; E11.9 Type 2 diabetes mellitus without complications
CPT/HCPCS: 99283; 72040; 73030; A9270

== ENCOUNTER → 2020-02-09 | Outpatient (CLI) | payer MEDICARE, OTHER ==
--- NOTE | 2020-02-09 14:10 | RADIOLOGY REPORT (SQ) ---
EXAM DESCRIPTION: MRI CERVICAL SPINE WITHOUT IMAGES COMPLETED DATE/TIME: 02/09/2020 12:48 pm REASON FOR STUDY: M54.12 RADICULOPATHY, CERVICAL REGION M54.12 RADICULOPATHY, CERVICAL REGION COMPARISON: None. TECHNIQUE: Sagittal and Axial imaging includes T1, T2, STIR and gradient echo sequences. LIMITATIONS: None. FINDINGS: ALIGNMENT: There is reversal of the normal lordotic curvature of the cervical spine. Ther e is no craniocervical or atlantoaxial dissociation. VERTEBRAE: The cervical vertebral body heights are preserved. There is no fracture. BONE MARROW: Normal. DISCS: The C5-C6 intervertebral disc space is narrowed and there is associated anterolateral endplate osteophyte formation. HARDWARE: None in the spine. CORD AND BASE OF BRAIN: Normal in caliber and signal intensity. SOFT TISSUES: No soft tissue masses. C1-C2: No stenosis. C2-C3: No spinal or foraminal stenosis. C3-C4: Mild right-sided foraminal stenosis due to uncovertebral hypertrophy. C4-C5: Broad-based disc osteophyte complex that indents the ventral aspect of the thecal sac without mass effect upon the cord and mild to moderate right-sided foraminal stenosis due to uncovertebral hy pertrophy. C5-C6: Broad-based disc osteophyte complex that indents the ventral aspect of the thecal sac without mass effect upon the cord and moderate right-sided and mild left-sided foraminal stenosis due to unco vertebral hypertrophy. C6-C7: No spinal or foraminal stenosis. C7-T1: No spinal or foraminal stenosis. UPPER THORACIC: No stenosis. OTHER: No other finding. IMPRESSION: Degenerative spondylosis and facet arthropathy of the cervical spine as detailed above. TECHNICAL DOCUMENTATION: JOB ID: [id number] 2010 [employer]- All Rights Reserved Reading location - IP/workstation name: [email or web address]
== END ==
LOC: RAD 11:49
PROVIDERS: ATTEND Internal Medicine
DX: M54.12 Radiculopathy, cervical region (principal)
CPT/HCPCS: 72141

== ENCOUNTER 2020-03-11 20:47 | Observation (INO) | payer OTHER, MEDICARE ==
--- NOTE | 2020-03-11 21:12 | ER Document Report ---
ED Medical Screen (RME) - General Chief Complaint: Chest Pain Stated Complaint: CHEST PAIN Time Seen by Provider: 03/11/20 21:08 Primary Care Provider: RADHA BROOKS MD [Primary Care Provider] - Follow up as needed Mode of Arrival: Ambulatory Information source: Patient Notes: 69-year-old male presented to ED for chest pain since 2 PM today. He states he went up to help his grandson do some that he wanted to do and he got hot so he started walking back to the house. He states he got more short of breath than his normal and he had very sharp chest pain. He states it kind of gets a little better and then gets worse throughout the day. He states sometimes it radiates to the lateral side of his chest but is always on the left side of his chest. He states he does have a history of diabetes congestive heart failure cholesterol blood pressure hypothyroid and a brain aneurysm. He is alert oriented respirations regular nonlabored speaking in full sentences right now. He states he does have some pain right now. He is a Pradaxa. I have greeted and performed a rapid initial assessment of this patient. A comprehensive ED assessment and evaluation of the patient, analysis of test results and completion of medical decision making process will be conducted by an additional ED providers. TRAVEL OUTSIDE OF THE [place] IN LAST 30 DAYS: No - Related Data Allergies/Adverse Reactions: No Known Allergies Allergy (Verified 02/07/20 06:03) Past Medical History - Past Medical History Cardiac Medical History: Reports: Hx Atrial Fibrillation, Hx Congestive Heart Failure, Hx Heart Attack, Hx Hypercholesterolemia, Hx Hypertension Denies: Hx Coronary Artery Disease, Hx Peripheral Vascular Disease, Hx Heart Murmur Pulmonary Medical History: Reports: Hx Sleep Apnea Denies: Hx Asthma, Hx Bronchitis, Hx COPD, Hx Pneumonia, Hx Tuberculosis Neurological Medical History: Reports: Hx Cerebrovascular Accident. Denies: Hx Seizures, Hx Parkinson's Disease Endocrine Medical History: Reports: Hx Diabetes Mellitus Type 1, Hx Diabetes Mellitus Type 2, Hx Hypothyroidism. Denies: Hx Graves' Disease, Hx Hyperthyroidism Renal/ Medical History: Reports: Hx Kidney Stones. Denies: Hx Benign Prostatic Hyperplasia, Hx End Stage Renal Disease, Hx Peritoneal Dialysis GI Medical History: Reports: Hx Diverticulitis, Hx Colonoscopy, Hx Endoscopy. Denies: Hx Crohn's Disease, Hx Gastroesophageal Reflux Disease, Hx Hiatal Hernia, Hx Irritable Bowel, Hx Liver Failure, Hx Pancreatitis, Hx Ulcer Musculoskeltal Medical History: Reports Hx Arthritis, Denies Hx Fibromyalgia, Denies Hx Multiple Sclerosis, Denies Hx Muscular Dystrophy, Reports Hx Musculoskeletal Trauma - Tendons torn in his knee right, Denies Hx Systemic Lupus Erythematosus Psychiatric Medical History: Reports: Hx Depression Denies: Hx Dementia Traumatic Medical History: Denies: Hx Fractures Past Surgical History: Reports: Hx Cardiac Catheterization, Hx Cardiac Surgery - cath, Hx Cholecystectomy, Hx Orthopedic Surgery - right knee. Denies: Hx Colostomy, Hx Pacemaker - Immunizations Immunizations up to date: Yes Hx Diphtheria, Pertussis, Tetanus Vaccination: Yes Physical Exam - Vital signs Vitals: Temp Pulse Resp BP Pulse Ox 98.3 F 77 17 177/94 H 95 03/11/20 21:01 03/11/20 21:01 03/11/20 21:01 03/11/20 21:01 03/11/20 21:01 Course - Vital Signs Vital signs: Temp Pulse Resp BP Pulse Ox 98.3 F 77 17 177/94 H 95 03/11/20 21:01 03/11/20 21:01 03/11/20 21:01 03/11/20 21:01 03/11/20 21:01 Doctor's Discharge - Discharge Referrals: RADHA BROOKS MD [Primary Care Provider] - Follow up as needed
[2020-03-11] MEDS ORDERED: ASPIRIN 81 MG TABLET, CHEWABLE PO ONE (21:23)
[2020-03-11] MEDS ORDERED: ASPIRIN 81 MG TABLET, CHEWABLE ONE (21:24)
[2020-03-11 21:43] LABS: INTERNATIONAL RATION (INR) 1.02; PROTHROMBIN TIME 13.4 SEC (11.4-15.4)
[2020-03-11 21:44] LABS: PARTIAL THROMBOPLASTIN TIME 32.9 SEC (23.5-35.8)
[2020-03-11 21:55] LABS: ALBUMIN 3.6 g/dL (3.5-5.0); ALKALINE PHOSPHATASE 92 U/L (38-126); ASPARTATE AMINO TRANSFERASE 35 U/L (17-59); BLOOD UREA NITROGEN 12 mg/dL (7-20); CALCIUM 10.3 mg/dL (8.4-10.2); CHLORIDE 99 mmol/L (98-107); CREATINE KINASE 402 U/L (55-170); GLUCOSE 362 mg/dL (75-110); POTASSIUM 4.2 mmol/L (3.6-5.0); TOTAL PROTEIN 6.8 g/dL (6.3-8.2)
[2020-03-11 22:00] LABS: ANION GAP 5 (5-19); CARBON DIOXIDE 30 mmol/L (22-30)
[2020-03-11 22:00] LABS: ABSOLUTE EOSINOPHILS # (AUTO) 0.1 10^3/uL (0.0-0.6); ABSOLUTE LYMPHOCYTES (AUTO) 2.4 10^3/uL (0.5-4.7); ABSOLUTE MONOCYTES (AUTO) 0.4 10^3/uL (0.1-1.4); ABSOLUTE NEUT (AUTO) 4.1 10^3/uL (1.7-8.2); BASOPHILS % (AUTO) 0.6 % (0-2); EOSINOPHILS % (AUTO) 1.6 % (0-6); HEMATOCRIT 39.1 % (37.9-51.0); LYMPHOCYTES % (AUTO) 33.7 % (13-45); MEAN CORPUSCULAR HGB CONC 33.4 g/dL (32.0-36.0); MEAN CORPUSCULAR VOLUME 96 fl (80-97); MONOCYTES % (AUTO) 5.8 % (3-13); PLATELET COUNT 197 10^3/uL (150-450); RED BLOOD COUNT 4.08 10^6/uL (4.35-5.55); RED CELL DISTRIBUTION WIDTH 13.3 % (11.5-14.0); SEGMENTED NEUTROPHILS % (AUTO) 58.3 % (42-78); TOTAL CELLS COUNTED % (AUTO) 100 %; WHITE BLOOD COUNT 7.1 10^3/uL (4.0-10.5)
--- NOTE | 2020-03-11 22:00 | RADIOLOGY REPORT (SQ) ---
EXAM DESCRIPTION: XR CHEST 2 VIEWS COMPLETED DATE/TME: 03/11/2020 21:08 CLINICAL HISTORY: 69 years, Male, Sharp chest pain intermittent since 2 PM EXAM DESCRIPTION: CLINICAL HISTORY: Sharp chest pain intermittent since 2 PM COMPARISON: None. FINDINGS: There is borderline cardiomegaly. There is mild pulmonary edema. There is bilateral peribronchial cuffing. No focal consolidation is identified. There is no significant pleural effusion. No pneumothorax is seen. IMPRESSION: Borderline cardiomegaly. Mild pulmonary edema. Otherwise normal.
[2020-03-11] MEDS: NITROGLYCERIN 0.4 MG/TAB 25 TAB/BOTTLE SL PRN ×3 (22:07→22:21)
[2020-03-11 22:15] LABS: TROPONIN I 0.062 ng/mL
[2020-03-11] MEDS ORDERED: NITROGLYCERIN 2% OINTMENT 1 GM PACKET TP ONE (22:30)
--- NOTE | 2020-03-11 23:18 | ER Document Report ---
Entered by NGHIA BECKFORD SCRIBE 03/11/20 [id number] Acting as scribe for:HASEEB SALEH IV, MD ED Cardiac - General Chief Complaint: Chest Pain > 30 Stated Complaint: CHEST PAIN Time Seen by Provider: 03/11/20 21:08 Primary Care Provider: RADHA BROOKS MD [Primary Care Provider] - Follow up as needed Mode of Arrival: Ambulatory Information source: Patient Notes: This 69 year old male patient with a history of HTN, HLD, A fib, NH, and CHF presents to the ED today via POV with complaints of left-sided chest pain that started around 1400 this afternoon. Patient states that the pain is sharp in nature and has varied in intensity since onset without any radiation. He admits that he was working outside in the heat today and developed the chest pain and shortness of breath while walking back to his house. He did not take any Nitroglycerin prior to arrival, but received aspirin in triage. He admits that he is somewhat noncompliant with his medications. Denies any other complaints. TRAVEL OUTSIDE OF THE [place] IN LAST 30 DAYS: No - Related Data Allergies/Adverse Reactions: No Known Allergies Allergy (Verified 02/07/20 06:03) Home Medications: pradaxa...... Past Medical History - General Information source: Patient - Social History Smoking Status: Never Smoker Cigarette use (# per day): No Chew tobacco use (# tins/day): No Smoking Education Provided: No Frequency of alcohol use: None Drug Abuse: None Lives with: Spouse/Significant other Family History: Reviewed & Not Pertinent, CAD, DM, Hyperlipidemia, Hypertension, Malignancy Patient has suicidal ideation: No Patient has homicidal ideation: No - Past Medical History Cardiac Medical History: Reports: Hx Atrial Fibrillation, Hx Congestive Heart Failure, Hx Heart Attack, Hx Hypercholesterolemia, Hx Hypertension Pulmonary Medical History: Reports: Hx Sleep Apnea Neurological Medical History: Reports: Hx Cerebrovascular Accident Endocrine Medical History: Reports: Hx Diabetes Mellitus Type 1, Hx Diabetes Mellitus Type 2, Hx Hypothyroidism Renal/ Medical History: Reports: Hx Kidney Stones GI Medical History: Reports: Hx Diverticulitis, Hx Colonoscopy, Hx Endoscopy Musculoskeletal Medical History: Reports Hx Arthritis, Reports Hx Musculoskeletal Trauma - Tendons torn in his knee right Psychiatric Medical History: Reports: Hx Depression Past Surgical History: Reports: Hx Cardiac Catheterization, Hx Cardiac Surgery - cath, Hx Cholecystectomy, Hx Orthopedic Surgery - right knee - Immunizations Immunizations up to date: Yes Hx Diphtheria, Pertussis, Tetanus Vaccination: Yes Hx Pneumococcal Vaccination: 07/19/17 Review of Systems - Review of Systems Constitutional: No symptoms reported EENT: No symptoms reported Cardiovascular: See HPI, Chest pain Respiratory: See HPI, Short of breath Gastrointestinal: No symptoms reported Genitourinary: No symptoms reported Male Genitourinary: No symptoms reported Musculoskeletal: No symptoms reported Skin: No symptoms reported Hematologic/Lymphatic: No symptoms reported Neurological/Psychological: No symptoms reported -: Yes All other systems reviewed and negative Physical Exam - Vital signs Vitals: Temp Pulse Resp BP Pulse Ox 98.3 F 77 17 177/94 H 95 03/11/20 21:01 03/11/20 21:01 03/11/20 21:01 03/11/20 21:01 03/11/20 21:01 Interpretation: Hypertensive - General General appearance: Alert In distress: None - HEENT Head: Normocephalic, Atraumatic Eyes: Normal Pupils: PERRL - Respiratory Respiratory status: No respiratory distress Chest status: Nontender Breath sounds: Normal Chest palpation: Normal - Cardiovascular Rhythm: Regular Heart sounds: Normal auscultation Murmur: No Friction rub: No Gallop: None auscultated - Abdominal Inspection: Normal Distension: No distension Bowel sounds: Normal Tenderness: Nontender - Abdomen soft Organomegaly: No organomegaly - Back Back: Normal, Nontender - Extremities General upper extremity: Normal inspection General lower extremity: Normal inspection. No: Edema - Neurological Neuro grossly intact: Yes Orientation: AAOx4 Rienzi Coma Scale Eye Opening: Spontaneous Rienzi Coma Scale Verbal: Oriented Viktoria Coma Scale Motor: Obeys Commands Rienzi Coma Scale Total: 15 - Psychological Associated symptoms: Normal affect, Normal mood - Skin Skin Temperature: Warm Skin Moisture: Dry Skin Color: Normal Course - Re-evaluation Re-evalutation: 03/11/20 23:13 Results of ED MSE discussed with patient. Patient is chest pain-free after administration of sublingual nitroglycerin. Patient informed that admission for observation is recommended given has risk factors. - Vital Signs Vital signs: Temp Pulse Resp BP Pulse Ox 98.3 F 77 15 154/85 H 91 L 03/11/20 21:01 03/11/20 21:01 03/11/20 22:19 03/11/20 22:19 03/11/20 22:19 - Laboratory Result Diagrams: 03/11/20 21:24 03/11/20 21:46 Laboratory results interpreted by me: 03/11/20 03/11/20 21:24 21:46 RBC 4.08 L Hgb 13.0 L Sodium 133.9 L Glucose 362 H Calcium 10.3 H Creatine Kinase 402 H - Diagnostic Test Radiology reviewed: Reports reviewed - EKG Interpretation by Me Additional EKG results interpreted by me: 03/11/20 23:14 EKG obtained on 03/11/2020 at 2054 hrs. was interpreted by this MD. Findings normal sinus rhythm, rate 77, normal axis, P waves preceding QRS complexes, right bundle branch block is present, there are no obvious patterns of ST segment elevation or depression present to suggest acute myocardial ischemia or infarction. Impression: Normal sinus rhythm with right bundle branch block and nonspecific ST segments. - Consults DR. LOPEZ Time consulted: 23:03 - REQUESTED PT BE ADMITTED FOR OBSERVATION TO CU UNDER DR. BROOKS. ALSO REQUESTED CARDIAC ENZYMES Q6H X 3 BE ORDERED NOW Reason for consultation: 03/11/20 23:15 CHEST PAIN Discharge - Discharge Clinical Impression: Chest pain Qualifiers: Chest pain type: unspecified Qualified Code(s): R07.9 - Chest pain, unspecified Condition: Stable Disposition: ADMITTED OBSERVATION Admitting Provider: Reji Unit Admitted: [facility] Referrals: RADHA BROOKS MD [Primary Care Provider] - Follow up as needed I personally performed the services described in the documentation, reviewed and edited the documentation which was dictated to the scribe in my presence, and it accurately records my words and actions.
[2020-03-12] MEDS ORDERED: LOSARTAN POTASSIUM 50 MG TABLET PO ONE (02:30)
[2020-03-12] MEDS ORDERED: DEXTROSE 40% GEL 15 GM TUBE PO PRN (02:30)
[2020-03-12] MEDS ORDERED: DEXTROSE 50%-WATER SYRINGE 12.5 GM/25 ML DOSE IV PRN (02:30)
[2020-03-12] MEDS ORDERED: GLUCAGON,HUMAN RECOMB 1 MG INJ IM PRN (02:30)
[2020-03-12] MEDS ORDERED: DEXTROSE 50%-WATER SYRINGE 25 GM/50 ML DOSE IV PRN (02:30)
[2020-03-12] MEDS ORDERED: DEXTROSE 40% GEL 15 GM TUBE X 2 PO PRN (02:30)
[2020-03-12 05:17] LABS: CHOLESTEROL 214.84 mg/dL (0-200); TRIGLYCERIDES 281 mg/dL (<150)
[2020-03-12 05:28] LABS: DIRECT LDL 106 mg/dL (<100)
[2020-03-12 05:32] LABS: VLDL CHOLESTEROL 56.2 mg/dL (10-31)
[2020-03-12] MEDS ORDERED: LOSARTAN POTASSIUM 50 MG TABLET PO SCH ×2 (10:00→15:55)
[2020-03-12] MEDS: INSULIN LISPRO 100 UNIT/ML 3 ML VIAL SUBCUT SCH ×4 (10:11→21:26)
--- NOTE | 2020-03-12 10:25 | EKG REPORT ---
SEVERITY:- ABNORMAL ECG - SINUS RHYTHM RIGHT BUNDLE BRANCH BLOCK INFERIOR INFARCT, AGE INDETERMINATE : Confirmed by: Nanci Centeno 12-Mar-2020 10:24:05
--- NOTE | 2020-03-12 15:49 | PDOC H&P ---
History of Present Illness Admission Date/PCP: 03/11/20 23:22 RADHA BROOKS MD Patient complains of: Cherst pain History of Present Illness: HASEEB YAO JR is a 69 year old [address] of Dr. Brooks who presented to the ED with complain of left sided chest pain that started about 7 hours prior to his evaluation in the ED. Patient described pain as intermittent, sharp in character and exacerbated by efforts. He has been working on his vehicle prior to onset of his left sided chest pain. He reported development of chest pain while working on his vehicle outside his house. He denied any associated radiation to his neck, shoulder of jaw. No associated palpitation, diaphoresis, nausea, or vomiting. His morbidities include CAD with old [place], HTN, Atrial Fibrillation, CHF and HLD. He admitted to noncompliance with his prescribed medication. His initial ED evaluation was significant for indeterminate troponin I level and elevated total CK. Due to his morbidities, presenting symptom and laboratory findings, he was advised hospitalization to observation bed for further evaluation and management. Past Medical History Cardiac Medical History: Reports: Atrial Fibrillation, Congestive Heart Failure, Myocardial Infarction, Hyperlipidema, Hypertension Denies: Coronary Artery Disease, Peripheral Vascular Disease, Heart Murmur Pulmonary Medical History: Reports: Sleep Apnea Denies: Asthma, Bronchitis, Chronic Obstructive Pulmonary Disease (COPD), Pneumonia, Tuberculosis Neurological Medical History: Denies: Seizures Endocrine Medical History: Reports: Diabetes Mellitus Type 1, Diabetes Mellitus Type 2, Hypothyroidism Denies: Hyperthyroidism Renal/ Medical History: Denies: End Stage Renal Disease GI Medical History: Reports: Diverticulitis Denies: Crohn's Disease, Gastroesophageal Reflux Disease, Hiatal Hernia Musculoskeltal Medical History: Reports: Arthritis Denies: Fibromyalgia Psychiatric Medical History: Reports: Depression Denies: Dementia Past Surgical History Past Surgical History: Reports: Cardiac Catheterization, Cholecystectomy, Orthopedic Surgery - right knee Denies: Colostomy, Pacemaker Social History Lives with: Spouse/Significant other Smoking Status: Never Smoker Electronic Cigarette use?: No Frequency of Alcohol Use: None Hx Recreational Drug Use: No Drugs: None Hx Prescription Drug Abuse: No - Advance Directive Resuscitation Status: Full Code Family History Family History: Reviewed & Not Pertinent, CAD, DM, Hyperlipidemia, Hypertension, Malignancy Parental Family History Reviewed: Yes Children Family History Reviewed: Yes Sibling(s) Family History Reviewed.: Yes Medication/Allergy Home Medications: Atorvastatin Calcium [Lipitor 80 mg Tablet] 80 mg PO QHS 09/13/16 Carvedilol [Coreg 25 mg Tablet] 25 mg PO Q12 09/13/16 Cyanocobalamin (Vitamin B-12) [Vitamin B-12 Inj 1000 Mcg/1 ml Vial] 1,000 mg IM .1ST OF THE MONTH 09/13/16 Furosemide [Lasix 40 mg Tablet] 40 mg PO DAILY 09/13/16 Levothyroxine Sodium 300 mcg PO Q6AM 09/13/16 Dabigatran Etexilate Mesylate [Pradaxa 150 mg Capsule] 150 mg PO Q12 01/02/18 Empagliflozin/Metformin HCl [Synjardy 12.5-1,000 mg Tablet] 1 tab PO BID 01/02/18 Ergocalciferol (Vitamin D2) [Vitamin D2] 50,000 unit PO FR@1000 01/02/18 Gabapentin [Neurontin 100 mg Capsule] 100 mg PO Q8 01/02/18 Losartan Potassium [Cozaar 100 mg Tablet] 100 mg PO DAILY 01/02/18 Diclofenac Sodium 4 gm TP QIDP PRN 03/12/20 Evolocumab [Repatha Sureclick] 140 mg SQ [id number] 03/12/20 Exenatide Microspheres [Bydureon Bcise] 2 mg SUBCUT TH@1000 03/12/20 Allergies/Adverse Reactions: No Known Allergies Allergy (Verified 02/07/20 06:03) Review of Systems Constitutional: ABSENT: chills, fever(s), headache(s), weight gain, weight loss Eyes: ABSENT: visual disturbances Ears: ABSENT: hearing changes Cardiovascular: PRESENT: chest pain. ABSENT: dyspnea on exertion, edema, orthropnea, palpitations Respiratory: ABSENT: cough, hemoptysis Gastrointestinal: ABSENT: abdominal pain, constipation, diarrhea, hematemesis, hematochezia, nausea, vomiting Genitourinary: ABSENT: dysuria, hematuria Musculoskeletal: ABSENT: joint swelling Integumentary: ABSENT: rash, wounds Neurological: ABSENT: abnormal gait, abnormal speech, confusion, dizziness, focal weakness, syncope Psychiatric: ABSENT: anxiety, depression, homidical ideation, suicidal ideation Endocrine: ABSENT: cold intolerance, heat intolerance, polydipsia, polyuria Hematologic/Lymphatic: ABSENT: easy bleeding, easy bruising, lymphadenopathy Allergic/Immunologic: ABSENT: seasonal rhinorrhea Physical Exam Vital Signs: Temp Pulse Resp BP Pulse Ox 97.4 F 69 20 133/79 H 91 L 03/12/20 11:40 03/12/20 11:40 03/12/20 11:40 03/12/20 11:40 03/12/20 11:40 Intake & Output 03/11/20 03/12/20 03/13/20 06:59 06:59 06:59 Intake Total 260 462 Balance 260 462 Weight 119.7 kg General appearance: PRESENT: no acute distress, obese Head exam: PRESENT: atraumatic, normocephalic Eye exam: PRESENT: conjunctiva pink, EOMI, PERRLA. ABSENT: scleral icterus Ear exam: PRESENT: normal external ear exam Mouth exam: PRESENT: moist, tongue midline Neck exam: PRESENT: full ROM. ABSENT: carotid bruit, JVD, lymphadenopathy, thyromegaly Respiratory exam: PRESENT: clear to auscultation sharlene Cardiovascular exam: PRESENT: RRR, +S1, +S2. ABSENT: diastolic murmur, rubs, systolic murmur Pulses: PRESENT: normal dorsalis pedis pul, +2 pedal pulses bilateral Vascular exam: PRESENT: normal capillary refill. ABSENT: pallor GI/Abdominal exam: PRESENT: normal bowel sounds, soft. ABSENT: distended, guarding, mass, organolmegaly, rebound, tenderness Rectal exam: PRESENT: deferred Extremities exam: ABSENT: pedal edema Musculoskeletal exam: PRESENT: normal inspection Neurological exam: PRESENT: alert, awake, oriented to person, oriented to place, oriented to time, oriented to situation, CN II-XII grossly intact. ABSENT: mot or sensory deficit Psychiatric exam: PRESENT: appropriate affect, normal mood. ABSENT: homicidal ideation, suicidal ideation Skin exam: PRESENT: dry, intact, warm. ABSENT: cyanosis, rash Results Laboratory Results: 03/11/20 21:24 03/11/20 21:46 03/11/20 03/11/20 03/11/20 21:24 21:46 21:46 WBC 7.1 RBC 4.08 L Hgb 13.0 L Hct 39.1 MCV 96 MCH 32.0 MCHC 33.4 RDW 13.3 Plt Count 197 Seg Neutrophils % 58.3 Sodium 133.9 L Potassium 4.2 Chloride 99 Carbon Dioxide 30 Anion Gap 5 BUN 12 Creatinine 1.07 Est GFR ( Amer) > 60 Glucose 362 H Calcium 10.3 H Magnesium 2.1 Total Bilirubin 1.0 AST 35 Alkaline Phosphatase 92 Total Protein 6.8 Albumin 3.6 Triglycerides 281 H Cholesterol 214.84 H LDL Cholesterol Direct 106 H VLDL Cholesterol 56.2 H HDL Cholesterol 54 03/11/20 03/11/20 03/12/20 21:46 21:46 04:12 Creatine Kinase 402 H Troponin I 0.062 0.063 NT-Pro-B Natriuret Pep 93 03/12/20 03/12/20 09:44 14:25 Creatine Kinase Troponin I 0.058 0.061 NT-Pro-B Natriuret Pep Impressions: Chest X-Ray 03/11/20 21:08 IMPRESSION: Borderline cardiomegaly. Mild pulmonary edema. Otherwise normal. Assessment & Plan - Diagnosis (1) Chest pain Qualifiers: Chest pain type: unspecified Qualified Code(s): R07.9 - Chest pain, unspecified Is this a current diagnosis for this admission?: Yes Plan: See admitting covering attending physician orders about care plan. (2) Essential hypertension Is this a current diagnosis for this admission?: Yes Plan: See admitting covering attending physician orders about care plan. (3) Diabetes mellitus type 2 in obese Is this a current diagnosis for this admission?: Yes Plan: See admitting covering attending physician orders about care plan. (4) Hyperlipidemia associated with type 2 diabetes mellitus Is this a current diagnosis for this admission?: Yes Plan: See admitting covering attending physician orders about care plan. (5) Hypothyroidism Qualifiers: Hypothyroidism type: unspecified Qualified Code(s): E03.9 - Hypothyroidism, unspecified Is this a current diagnosis for this admission?: Yes Plan: See admitting covering attending physician orders about care plan. - Time Time Spent: 50 to 70 Minutes Medications reviewed and adjusted accordingly: Yes Anticipated discharge: Home Anticipated DC Timeframe: Other - Inpatient Certification Based on my medical assessment, after consideration of the patient's comorbidities, presenting symptoms, or acuity I expect that the services needed warrant INPATIENT care.: Yes I certify that my determination is in accordance with my understanding of Medicare's requirements for reasonable and necessary INPATIENT services [42 CFR 412.3e].: Yes Medical Necessity: Significant Comorbidiites Make Outpatient Treatment Too Risky, Need Close Monitoring Due to Risk of Patient Decompensation, Need For Continuous Telemetry Monitoring, Risk of Complication if Not Cared For in Hospital, Risk of Diagnosis Which Will Require Inpatient Eval/Care/Monitoring Post Hospital Care: D/C [employer] Supervisor Documentation - Plan Summary Plan Summary: See admitting covering attending physician orders about care plan.
[2020-03-12] MEDS ORDERED: EVOLOCUMAB 140 MG SQ SCH (16:00)
[2020-03-12] MEDS ORDERED: [UNRECOGNIZED DRUG - OTHER] PO SCH (18:00)
[2020-03-12] MEDS ORDERED: EMPAGLIFLOZIN PO SCH (18:00)
[2020-03-12] MEDS ORDERED: METFORMIN HCL PO SCH (18:00)
[2020-03-12] MEDS: ASPIRIN 81 MG TABLET, ENT COATED PO SCH (18:40)
[2020-03-12] MEDS: CARVEDILOL 12.5 MG TABLET PO SCH (21:25)
[2020-03-12] MEDS: DABIGATRAN ETEXILATE 150 MG CAPSULE PO SCH (21:26)
[2020-03-12] MEDS: GABAPENTIN 100 MG CAPSULE PO SCH (21:26)
[2020-03-12] MEDS ORDERED: ATORVASTATIN CALCIUM 80 MG TABLET PO SCH (22:00)
[2020-03-13] MEDS: GABAPENTIN 100 MG CAPSULE PO SCH ×2 (05:51→15:13)
[2020-03-13] MEDS ORDERED: LEVOTHYROXINE SODIUM 0.1 MG TABLET PO SCH (06:00)
[2020-03-13] MEDS ORDERED: FUROSEMIDE 40 MG TABLET PO SCH ×2 (10:00)
[2020-03-13 10:01] VITALS: BP 138/79
[2020-03-13] MEDS: CARVEDILOL 12.5 MG TABLET PO SCH (10:11)
[2020-03-13] MEDS: ASPIRIN 81 MG TABLET, ENT COATED PO SCH (10:11)
[2020-03-13] MEDS: INSULIN LISPRO 100 UNIT/ML 3 ML VIAL SUBCUT SCH ×2 (10:11→12:45)
[2020-03-13] MEDS: DABIGATRAN ETEXILATE 150 MG CAPSULE PO SCH (10:12)
--- NOTE | 2020-03-13 14:53 | PDOC DISCHARGE SUMMARY ---
Impression - Admit/DC Date/PCP Admission Date/Primary Care Provider: 03/11/20 23:22 RADHA BROOKS MD Discharge Date: 03/13/20 - Discharge Diagnosis (1) Chest pain Is this a current diagnosis for this admission?: Yes (2) Essential hypertension Is this a current diagnosis for this admission?: Yes (3) Chronic atrial fibrillation Is this a current diagnosis for this admission?: Yes (4) Diabetes mellitus type 2 in obese Is this a current diagnosis for this admission?: Yes (5) Hyperlipidemia associated with type 2 diabetes mellitus Is this a current diagnosis for this admission?: Yes (6) Hypothyroidism Is this a current diagnosis for this admission?: Yes - Assessment Summary: Patient was admitted for r/o ACS due to his presentation with exertional chest pain and associated morbidities. His serial serum troponin I remain in indeterminate level. He has been symptoms free since admission. He will continue on all his preadmission medication management. He will be discharged home today and follow up with Dr. Brooks for further evaluation as indicated for significant coronary heart disease. - Additional Information Resuscitation Status: Full Code Discharge Diet: Cardiac, Diabetic Discharge Activity: Activity As Tolerated, Slowly Increase Activity Referrals: RADHA BROOKS MD [Primary Care Provider] - Follow up as needed Home Medications: Atorvastatin Calcium [Lipitor 80 mg Tablet] 80 mg PO QHS 09/13/16 Carvedilol [Coreg 25 mg Tablet] 25 mg PO Q12 09/13/16 Cyanocobalamin (Vitamin B-12) [Vitamin B-12 Inj 1000 Mcg/1 ml Vial] 1,000 mg IM .1ST OF THE MONTH 09/13/16 Furosemide [Lasix 40 mg Tablet] 40 mg PO DAILY 09/13/16 Levothyroxine Sodium 300 mcg PO Q6AM 09/13/16 Dabigatran Etexilate Mesylate [Pradaxa 150 mg Capsule] 150 mg PO Q12 01/02/18 Empagliflozin/Metformin HCl [Synjardy 12.5-1,000 mg Tablet] 1 tab PO BID 01/02/18 Ergocalciferol (Vitamin D2) [Vitamin D2] 50,000 unit PO FR@1000 01/02/18 Gabapentin [Neurontin 100 mg Capsule] 100 mg PO Q8 01/02/18 Losartan Potassium [Cozaar 100 mg Tablet] 100 mg PO DAILY 01/02/18 Diclofenac Sodium 4 gm TP QIDP PRN 03/12/20 Evolocumab [Repatha Sureclick] 140 mg SQ .[id number] 03/12/20 Exenatide Microspheres [Bydureon Bcise] 2 mg SUBCUT TH@1000 03/12/20 History of Present Illiness History of Present Illness: HASEEB YAO JR is a 69 year old male of Dr. Brooks who presented to the ED with complain of left sided chest pain that started about 7 hours prior to his evaluation in the ED. Patient described pain as intermittent, sharp in character and exacerbated by efforts. He has been working on his vehicle prior to onset of his left sided chest pain. He reported development of chest pain while working on his vehicle outside his house. He denied any associated radiation to his nec k, shoulder of jaw. No associated palpitation, diaphoresis, nausea, or vomiting. 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 He admitted to noncompliance with his prescribed medication. His initial ED evaluation was significant for indeterminate troponin I level and elevated total CK. Due to his morbidities, presenting symptom and laboratory findings, he was advised hospitalization to observation bed for further evaluation and management. Hospital Course Hospital Course: Patient was admitted for r/o ACS due to his presentation with exertional chest pain and associated morbidities. His serial serum troponin I remain in indeterminate level. He has been symptoms free since admission. He will continue on all his preadmission medication management. He will be discharged home today and follow up with Dr. Brooks for further evaluation as indicated for significant coronary heart disease. Physical Exam Vital Signs: Temp Pulse Resp BP Pulse Ox 97.3 F 57 L 16 138/79 H 96 03/13/20 03:27 03/13/20 07:38 03/13/20 07:38 03/13/20 07:38 03/13/20 07:38 Intake & Output 03/12/20 03/13/20 03/14/20 06:59 06:59 06:59 Intake Total 260 2208 Balance 260 2208 Weight 119.7 kg 117.9 kg General appearance: PRESENT: obese Head exam: PRESENT: atraumatic, normocephalic Eye exam: PRESENT: conjunctiva pink. ABSENT: scleral icterus Mouth exam: PRESENT: moist Cardiovascular exam: PRESENT: RRR, +S1, +S2. ABSENT: diastolic murmur, rubs, systolic murmur Vascular exam: ABSENT: pallor GI/Abdominal exam: PRESENT: normal bowel sounds, soft. ABSENT: tenderness Extremities exam: ABSENT: pedal edema Neurological exam: PRESENT: alert, awake, oriented to person, oriented to place, oriented to time, oriented to situation, CN II-XII grossly intact. ABSENT: motor sensory deficit Psychiatric exam: PRESENT: appropriate affect, normal mood. ABSENT: homicidal ideation, suicidal ideation Skin exam: PRESENT: dry, intact, warm. ABSENT: cyanosis, rash Results Laboratory Results: WBC 7.1 10^3/uL (4.0-10.5) 03/11/20 21: RBC 4.08 10^6/uL (4.35-5.55) L 03/11/20 21:24 Hgb 13.0 g/dL (13.5-17.0) L 03/11/20 21: Hct 39.1 % (37.9-51.0) 03/11/20 21: MCV 96 fl (80-97) 03/11/20 21:24 MCH 32.0 pg (27.0-33.4) 03/11/20 21: MCHC 33.4 g/dL (32.0-36.0) 03/11/20 21:24 RDW 13.3 % (11.5-14.0) 03/11/20 21:24 Plt Count 197 10^3/uL (150-450) 03/11/20 21: Lymph % (Auto) 33.7 % (13-45) 03/11/20 21: [place] % (Auto) 5.8 % (3-13) 03/11/20 21:24 Eos % (Auto) 1.6 % (0-6) 03/11/20 21: Baso % (Auto) 0.6 % (0-2) 03/11/20 21:24 Absolute Neuts (auto) 4.1 10^3/uL (1.7-8.2) 03/11/20 21: Absolute Lymphs (auto) 2.4 10^3/uL (0.5-4.7) 03/11/20 21: Absolute Monos (auto) 0.4 10^3/uL (0.1-1.4) 03/11/20 21:24 Absolute Eos (auto) 0.1 10^3/uL (0.0-0.6) 03/11/20 21:24 Absolute Basos (auto) 0.0 10^3/uL (0.0-0.2) 03/11/20 21:24 Seg Neutrophils % 58.3 % (42-78) 03/11/20 21:24 PT 13.4 SEC (11.4-15.4) 03/11/20 21:08 INR 1.02 03/11/20 21:08 APTT 32.9 SEC (23.5-35.8) 03/11/20 21:08 Sodium 133.9 mmol/L (137-145) L 03/11/20 21:46 Potassium 4.2 mmol/L (3.6-5.0) 03/11/20 21:46 Chloride 99 mmol/L (98-107) 03/11/20 21:46 Carbon Dioxide 30 mmol/L (22-30) 03/11/20 21:46 Anion Gap 5 (5-19) 03/11/20 21:46 BUN 12 mg/dL (7-20) 03/11/20 21:46 Creatinine 1.07 mg/dL (0.52-1.25) 03/11/20 21:46 Est GFR ( Amer) > 60 (>60) 03/11/20 21:46 Est GFR (MDRD) Non-Af > 60 (>60) 03/11/20 21:46 Glucose 362 mg/dL (75-110) H 03/11/20 21:46 POC Glucose 190 mg/dL (70-110) H 03/13/20 07:39 Hemoglobin A1c % 10.8 % (4.7-6.0) H 03/11/20 21:24 Calcium 10.3 mg/dL (8.4-10.2) H 03/11/20 21:46 Magnesium 2.1 mg/dL (1.6-2.3) 03/11/20 21:46 Total Bilirubin 1.0 mg/dL (0.2-1.3) 03/11/20 21:46 Direct Bilirubin 0.0 mg/dL (0.0-0.4) 03/11/20 21:46 Neonat Total Bilirubin Not Reportable 03/11/20 21:46 Neonat Direct Bilirubin Not Reportable 03/11/20 21:46 Neonat Indirect Bili Not Reportable 03/11/20 21:46 AST 35 U/L (17-59) 03/11/20 21:46 ALT 31 U/L (<50) 03/11/20 21:46 Alkaline Phosphatase 92 U/L (38-126) 03/11/20 21:46 Creatine Kinase 402 U/L (55-170) H 03/11/20 21:46 Troponin I 0.061 ng/mL 03/12/20 14:25 NT-Pro-B Natriuret Pep 93 pg/mL (<125) 03/11/20 21:46 Total Protein 6.8 g/dL (6.3-8.2) 03/11/20 21:46 Albumin 3.6 g/dL (3.5-5.0) 03/11/20 21:46 Triglycerides 281 mg/dL (<150) H 03/11/20 21:46 Cholesterol 214.84 mg/dL (0-200) H 03/11/20 21:46 LDL Cholesterol Direct 106 mg/dL (<100) H 03/11/20 21:46 VLDL Cholesterol 56.2 mg/dL (10-31) H 03/11/20 21:46 HDL Cholesterol 54 mg/dL (>40) 03/11/20 21:46 03/11/20 03/12/20 03/12/20 21:46 04:12 09:44 Troponin I 0.062 0.063 0.058 NT-Pro-B Natriuret Pep 93 03/12/20 14:25 Troponin I 0.061 NT-Pro-B Natriuret Pep Impressions: Chest X-Ray 03/11/20 21:08 IMPRESSION: Borderline cardiomegaly. Mild pulmonary edema. Otherwise normal. Plan Health Concerns: Compliance with follow up arrangement and medications. Plan of Treatment: Maintain on preadmission medications with Ecotrin 81 mg p.o daily. Close follow up with Dr Brooks for further coronary artery status evaluation in view of his morbidities. Goals: Reduce readmission risk and further evaluation of his coronary artery status. Stroke Is this a Stroke Patient?: No Acute Heart Failure - Is this a Heart Failure Patient?: No
[2020-03-17] MEDS ORDERED: (PENDING PHARMACY ID) (Exenatide Microspheres [Bydureon Bcise] 2 MG) SUBCUT SCH (10:00)
[2020-03-18] MEDS ORDERED: ERGOCALCIFEROL (VITAMIN D2) 50000 UNIT (1.25 MG) CAPSULE PO SCH (10:00)
[2020-03-19] MEDS ORDERED: CYANOCOBALAMIN (VITAMIN B-12) INJ 1000 MCG/1 ML VIAL IM SCH (10:00)
== END 2020-03-13 16:40 | disposition home or self-care (01) ==
LOC: ER 20:47 → EH 23:22 → 3W 03-12 00:55
PROVIDERS: ADMIT Internal Medicine; ATTEND Internal Medicine
DX: R07.89 Other chest pain (principal); I48.20 Chronic atrial fibrillation, unspecified; I11.0 Hypertensive heart disease with heart failure; I50.9 Heart failure, unspecified; E11.9 Type 2 diabetes mellitus without complications; E66.9 Obesity, unspecified; E78.49 Other hyperlipidemia; E03.9 Hypothyroidism, unspecified; I25.10 Atherosclerotic heart disease of native coronary artery without angina pectoris; I25.2 Old myocardial infarction; R06.02 Shortness of breath; M19.90 Unspecified osteoarthritis, unspecified site; I45.10 Unspecified right bundle-branch block; Z91.14 Patient's other noncompliance with medication regimen; Z79.899 Other long term (current) drug therapy; Z79.02 Long term (current) use of antithrombotics/antiplatelets; Z79.84 Long term (current) use of oral hypoglycemic drugs; Z79.890 Hormone replacement therapy; Z82.49 Family history of ischemic heart disease and other diseases of the circulatory system; Z86.79 Personal history of other diseases of the circulatory system
CPT/HCPCS: 93005; 99285; 36415 ×2; 82962 ×2; 82550; 83735; 85025; 85610; 85730; 80053; 84484 ×2; 83036; 80061; 83880; 71046; 93010; J1815 ×2; J3490 ×2

== ENCOUNTER 2020-06-21 09:49 | Day surgery (SDC) | payer OTHER, MEDICARE ==
[~2020-06-21 09:49] MED LIST: CHONDR SU A NA/HYALUR INTRAOC KIT (SURGICARE) ONE; EPINEPHRINE INJ/PF 1 MG/1 ML AMPULE ONE; KETOROLAC TROMETHAMINE 0.45% 4 DROP/0.4 ML DROPERETTE OS PRN; LIDOCAINE 1%/PHENYLEPHRINE 1.5% 1 ML VIAL ONE
[2020-06-21] MEDS: BESIFLOXACIN HCL 0.6% OPH SUSP 5 ML BOTTLE OS PRN ×4 (11:51→12:52)
[2020-06-21] MEDS: CYCLOPENTOLATE 0.2%/PHENYLEPHRINE 1% OPH SOLN 2 ML OS PRN ×3 (11:51→12:11)
[2020-06-21] MEDS: TROPICAMIDE 1% OPH SOLN 15 ML OS PRN ×3 (11:51→12:11)
[2020-06-21] MEDS: TETRACAINE HCL 0.5% OPH SOLN 4 ML OS PRN ×3 (11:52→12:32)
[2020-06-21] MEDS ORDERED: ONDANSETRON HCL INJ/PF 4 MG/2 ML SDV ONE (12:07)
[2020-06-21] MEDS ORDERED: MIDAZOLAM 2 MG/2 ML INJ ONE (12:08)
[2020-06-21] MEDS ORDERED: FENTANYL CITRATE INJ/PF 100 MCG/2 ML AMPUL ONE (12:08)
[2020-06-21] MEDS: DORZOLAMIDE HCL 2%/TIMOLOL MALEAT 0.5% OPH SOLN 10 ML OS PRN ×2 (12:43→12:52)
[2020-06-21] MEDS: PREDNISOLONE ACETATE 1% OPH SUSP 5 ML OS PRN ×2 (12:43→12:52)
--- NOTE | 2020-06-21 13:37 | Operative Report ---
Operative Report[facility] Operative Report: DATE OF SURGERY: 06/21/2020 PREOPERATIVE DIAGNOSIS: Cataract, left eye, Pupil Miosis POSTOPERATIVE DIAGNOSIS: Cataract, left eye, Pupil miosis OPERATION: Complex Cataract extraction with insertion of an IOL of the left eye and use of a maluygan ring due to pupil dilation of less than 4mm. Intraocular Lens Model: [20.0 diopter SN 60 WF] Underwent surgery for difficulty seeing road signs SURGEON: Con Esparza MD ANESTHESIA: Topical PROCEDURE: After obtaining appropriate consent, the patient's left eye was prepped and draped in a sterile fashion as well as the surgeon in the sterile manner and cataract surgery was started. First a paracentesis blade was used to make a side-port incision. Viscoelastic was used to inflate the anterior chamber. Next a 2.4 mm incision was made with a 2.4 mm blade, clear corneal temporarily. A continuous capsulorrhexis was made using a cystotome and Utrata forceps. Following this hydrodissection was carried out to make the lens fully loose and mobile and it was rotated freely. Following this, a divide and conquer technique was used to phacoemulsify the lens.. The remaining cortex was removed with an irrigation/aspiration. Provisc was instilled into the capsular bag to inflate the bag. The intraocular lens was placed. The remaining viscoelastic material was removed with irrigation/aspiration. Following this, the incision was found to be watertight. Prior to making the capsulorhexis a maluygan ring was inserted due to poor pupillary dilation. This was removed at the end of the case. Besivance and Cosopt was instilled into the eye and a protective shield was placed over the eye. The patient was returned to the postoperative recovery in a stable condition.
== END 2020-06-21 13:25 | disposition home or self-care (01) ==
LOC: SC 09:49
PROVIDERS: ATTEND Internal Medicine
DX: H25.89 Other age-related cataract (principal); E11.3311 Type 2 diabetes mellitus with moderate nonproliferative diabetic retinopathy with macular edema, right eye; E11.3292 Type 2 diabetes mellitus with mild nonproliferative diabetic retinopathy without macular edema, left eye; H18.423 Band keratopathy, bilateral; H04.123 Dry eye syndrome of bilateral lacrimal glands; H52.4 Presbyopia; I10 Essential (primary) hypertension; E78.00 Pure hypercholesterolemia, unspecified; E03.9 Hypothyroidism, unspecified; G47.30 Sleep apnea, unspecified; Z86.73 Personal history of transient ischemic attack (TIA), and cerebral infarction without residual deficits; Z79.02 Long term (current) use of antithrombotics/antiplatelets; Z79.84 Long term (current) use of oral hypoglycemic drugs
CPT/HCPCS: 66982; 82962; V2632; J2250; J3490 ×2; J0171; J3010; J2405

== ENCOUNTER 2020-07-20 20:21 | Emergency (ER) | payer OTHER, MEDICARE ==
--- NOTE | 2020-07-20 21:03 | ER Document Report ---
ED Medical Screen (RME) - General Chief Complaint: Fainting Stated Complaint: FAINTED Time Seen by Provider: 07/20/20 20:51 Primary Care Provider: RADHA BROOKS MD [Primary Care Provider] - Follow up as needed TRAVEL OUTSIDE OF THE [place] IN LAST 30 DAYS: No - HPI Notes: Patient is a 69-year-old male with a history of DM, HTN, a-fib and brain aneurysm who presents s/p syncope that occurred just prior to arrival. Patient states he took both his losartan and Coreg just prior to syncopal episode, where he usually takes 1 in the morning and 1 at night. He states he landed on his right shoulder but is unsure if he hit his head. He states he lost consciousness briefly. He denies any chest pain or shortness of breath. He currently takes Pradaxa for his afib. He is scheduled to have an eye procedure tomorrow morning. 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 Denies: Hx Seizures, Hx Parkinson's Disease Endocrine Medical History: Reports: Hx Diabetes Mellitus Type 1, Hx Diabetes Mellitus Type 2, Hx Hypothyroidism. Denies: Hx Graves' Disease, Hx Hyperthyroidism Renal/ Medical History: Reports: Hx Kidney Stones. Denies: Hx Benign Prostatic Hyperplasia, Hx End Stage Renal Disease, Hx Peritoneal Dialysis GI Medical History: Reports: Hx Diverticulitis, Hx Colonoscopy, Hx Endoscopy. Denies: Hx Crohn's Disease, Hx Gastroesophageal Reflux Disease, Hx Hepatitis, Hx Hiatal Hernia, Hx Irritable Bowel, Hx Liver Failure, Hx Pancreatitis, Hx Ulcer Musculoskeltal Medical History: Reports Hx Arthritis, Denies Hx Fibromyalgia, Denies Hx Multiple Sclerosis, Denies Hx Muscular Dystrophy, Reports Hx Musculoskeletal Trauma - Tendons torn in his knee right, Denies Hx Systemic Lupus Erythematosus Psychiatric Medical History: Reports: Hx Depression Denies: Hx Dementia Traumatic Medical History: Denies: Hx Fractures Infectious Medical History: Denies: Hx Hepatitis Past Surgical History: Reports: Hx Cardiac Catheterization, Hx Cardiac Surgery - cath, Hx Cholecystectomy, Hx Orthopedic Surgery - right knee. Denies: Hx Colostomy, Hx Open Heart Surgery, Hx Pacemaker - Immunizations Immunizations up to date: Yes Hx Diphtheria, Pertussis, Tetanus Vaccination: Yes Physical Exam - Vital signs Vitals: Temp Pulse Resp BP Pulse Ox 98.1 F 65 24 H 122/71 94 07/20/20 20:28 07/20/20 20:28 07/20/20 20:28 07/20/20 20:28 07/20/20 20:28 - HEENT Head: Normocephalic, Atraumatic. No: Abrasions, Ecchymosis Course - Re-evaluation Re-evalutation: I have greeted and performed a rapid initial assessment of this patient. A comprehensive ED assessment and evaluation of the patient, analysis of test results and completion of medical decision making process will be conducted by an additional ED providers. - Vital Signs Vital signs: Temp Pulse Resp BP Pulse Ox 98.1 F 65 24 H 122/71 94 07/20/20 20:28 07/20/20 20:28 07/20/20 20:28 07/20/20 20:28 07/20/20 20:28 Doctor's Discharge - Discharge Referrals: RADHA BROOKS MD [Primary Care Provider] - Follow up as needed
[2020-07-20 22:14] LABS: ABSOLUTE BASOPHILS # (AUTO) 0.1 10^3/uL (0.0-0.2); ABSOLUTE EOSINOPHILS # (AUTO) 0.2 10^3/uL (0.0-0.6); ABSOLUTE MONOCYTES (AUTO) 0.5 10^3/uL (0.1-1.4); ABSOLUTE NEUT (AUTO) 4.1 10^3/uL (1.7-8.2); BASOPHILS % (AUTO) 0.8 % (0-2); EOSINOPHILS % (AUTO) 2.4 % (0-6); HEMATOCRIT 35.2 % (37.9-51.0); HEMOGLOBIN 11.8 g/dL (13.5-17.0); LYMPHOCYTES % (AUTO) 29.4 % (13-45); MEAN CORPUSCULAR HEMOGLOBIN 31.6 pg (27.0-33.4); MEAN CORPUSCULAR HGB CONC 33.5 g/dL (32.0-36.0); MEAN CORPUSCULAR VOLUME 94 fl (80-97); MONOCYTES % (AUTO) 6.7 % (3-13); RED BLOOD COUNT 3.73 10^6/uL (4.35-5.55); RED CELL DISTRIBUTION WIDTH 12.7 % (11.5-14.0); SEGMENTED NEUTROPHILS % (AUTO) 60.7 % (42-78); TOTAL CELLS COUNTED % (AUTO) 100 %; WHITE BLOOD COUNT 6.8 10^3/uL (4.0-10.5)
[2020-07-20 22:19] LABS: INTERNATIONAL RATION (INR) 0.97; PROTHROMBIN TIME 13.1 SEC (11.4-15.4)
[2020-07-20 22:23] LABS: ALBUMIN 3.5 g/dL (3.5-5.0); ALKALINE PHOSPHATASE 97 U/L (38-126); ASPARTATE AMINO TRANSFERASE 27 U/L (17-59); BILIRUBIN,TOTAL 1.1 mg/dL (0.2-1.3); BLOOD UREA NITROGEN 14 mg/dL (7-20); CALCIUM 10.1 mg/dL (8.4-10.2); CARBON DIOXIDE 30 mmol/L (22-30); GLUCOSE 375 mg/dL (75-110); POTASSIUM 4.4 mmol/L (3.6-5.0); TOTAL PROTEIN 6.7 g/dL (6.3-8.2)
[2020-07-20 22:28] LABS: CHLORIDE 100 mmol/L (98-107); PLATELET COUNT 150 10^3/uL (150-450)
[2020-07-20 22:30] LABS: ANION GAP 3 (5-19)
--- NOTE | 2020-07-20 22:44 | RADIOLOGY REPORT (SQ) ---
EXAM DESCRIPTION: X-ray right shoulder 3 views COMPLETED DATE/TME: 07/20/2020 21:59 CLINICAL HISTORY: 69 years, Male, fall with shoulder pain COMPARISON: None. NUMBER OF VIEWS: TECHNIQUE: LIMITATIONS: None. FINDINGS: No fracture or dislocation. There are degenerative changes involving the acromioclavicular joint. Mineralization of bone appears normal. IMPRESSION: No fracture or dislocation. copyright 2010 [employer]- All Rights Reserved
--- NOTE | 2020-07-20 22:46 | RADIOLOGY REPORT (SQ) ---
EXAM DESCRIPTION: CT HEAD WITHOUT CLINICAL HISTORY: 69 years Male, syncope, on blood thinners COMPARISON: None. TECHNIQUE: Axial images of the head were performed without the use of intravenous contrast, with sagittal and coronal reformatted images. This exam was performed according to our departmental dose-optimization program which includes use of Automated Exposure Control, adjustment of the mA and/or kV according to patient size and/or use of iterative reconstruction technique. FINDINGS: No evidence of acute hemorrhage or infarct. No evidence of mass or hydrocephalus. The visualized paranasal sinuses are clear. IMPRESSION: No acute finding.
[2020-07-20] MEDS ORDERED: INSULIN REG, HUMAN 100 UNIT/ML 3 ML VIAL (PYX) SUBCUT ONE (23:35)
--- NOTE | 2020-07-20 23:42 | ER Document Report ---
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 Patient states he landed on his right shoulder and is not sure if he hit his head. Berna ent states he is on Coreg and Losartan for his HTN and took both tonight instead of one in the morning and one at night since he forgot this morning. Patient denies recent illness and states his ankles usually swell at the end of the day. Patient reports an appointment for a cataract cath tomorrow. TRAVEL OUTSIDE OF THE [place] IN LAST 30 DAYS: No - Related Data Allergies/Adverse Reactions: No Known Allergies Allergy (Verified 07/11/20 10:42) Home Medications: synthroid, pradaxa, losartan, coreg, dm med, chol med Past Medical History - General Information source: Patient - Social History Smoking Status: Never Smoker Cigarette use (# per day): No Lives with: Family Family History: Reviewed & Not Pertinent, CAD, DM, Hyperlipidemia, Hypertension, Malignancy - Past Medical History Cardiac Medical History: Reports: Hx Atrial Fibrillation, Hx Congestive Heart Failure, Hx Heart Attack - YEARS AGO, Hx Hypercholesterolemia, Hx Hypertension Pulmonary Medical History: Reports: Hx Sleep Apnea Neurological Medical History: Reports: 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 Endocrine Medical History: Reports: Hx Diabetes Mellitus Type 1, Hx Diabetes Mellitus Type 2, Hx Hypothyroidism Renal/ Medical History: Reports: Hx Kidney Stones GI Medical History: Reports: Hx Diverticulitis, Hx Colonoscopy, Hx Endoscopy Musculoskeletal Medical History: Reports Hx Arthritis, Reports Hx Musculoskeletal Trauma - Tendons torn in his knee right Psychiatric Medical History: Reports: Hx Depression Past Surgical History: Reports: Hx Cardiac Catheterization, Hx Cardiac Surgery - cath, Hx Cholecystectomy, Hx Orthopedic Surgery - right knee - Immunizations Immunizations up to date: Yes Hx Diphtheria, Pertussis, Tetanus Vaccination: Yes Hx Pneumococcal Vaccination: 07/19/17 Review of Systems - Review of Systems Constitutional: See HPI. denies: Recent illness EENT: No symptoms reported Cardiovascular: See HPI, Syncope Respiratory: No symptoms reported Gastrointestinal: No symptoms reported Genitourinary: No symptoms reported Male Genitourinary: No symptoms reported Musculoskeletal: See HPI, Other - R shoulder pain Skin: No symptoms reported Hematologic/Lymphatic: No symptoms reported Neurological/Psychological: No symptoms reported -: Yes All other systems reviewed and negative Physical Exam - Vital signs Vitals: Temp Pulse Resp BP Pulse Ox 98.1 F 65 24 H 122/71 94 07/20/20 20:28 07/20/20 20:28 07/20/20 20:28 07/20/20 20:28 07/20/20 20:28 - General General appearance: Appears well, Alert - HEENT Head: Normocephalic, Atraumatic Eyes: Normal Pupils: PERRL - Respiratory Respiratory status: No respiratory distress Chest status: Nontender Breath sounds: Normal Chest palpation: Normal - Cardiovascular Rhythm: Regular Heart sounds: Normal auscultation Murmur: No - Abdominal Inspection: Obese Distension: No distension Bowel sounds: Normal Tenderness: Nontender - Extremities General upper extremity: Normal inspection, Normal ROM Notes: 2+ peripheral edema to the bilateral lower extremities. - Neurological Neuro grossly intact: Yes Cognition: Normal Orientation: AAOx4 Rincon Coma Scale Eye Opening: Spontaneous Viktoria Coma Scale Verbal: Oriented R[place]con Coma Scale Motor: Obeys Commands Rincon Coma Scale Total: 15 Speech: Normal Sensory: Normal - Psychological Associated symptoms: Normal affect, Normal mood - Skin Skin Temperature: Warm Skin Moisture: Dry Skin Color: Normal Course - Re-evaluation Re-evalutation: 07/21/20 01:18 MDM 69 year old male with dizziness and near syncope/ syncope. Took both bp meds at once early pm due to forgetting this am. DM and h/o anneursym. He has no headache but do to striking his head and taking pradaxa decison to obtain ct of brain due to likely frail bridgning vessels and h/o anneursym. Thankfully ct here looks well. 2 sets of enzymes are reassuring and no concerning findings noted on threat monitoring analyst here. Discussed follow up with Dr. Gillespie and he and expressed understanding. - Vital Signs Vital signs: Temp Pulse Resp BP Pulse Ox 98.1 F 71 19 153/95 H 96 07/20/20 20:28 07/20/20 23:57 07/20/20 22:04 07/20/20 23:57 07/20/20 22:04 - Laboratory Result Diagrams: 07/20/20 21:47 07/20/20 21:47 Laboratory results interpreted by me: 07/20/20 07/20/20 07/20/20 21:47 21:47 23:35 RBC 3.73 L Hgb 11.8 L Hct 35.2 L Sodium 133.4 L Anion Gap 3 L Glucose 375 H POC Glucose Urine Protein 100 H Urine Glucose (UA) >=500 H 07/20/20 07/21/20 23:39 00:21 RBC Hgb Hct Sodium Anion Gap Glucose POC Glucose 312 H 319 H Urine Protein Urine Glucose (UA) - Diagnostic Test Radiology reviewed: Image reviewed, Reports reviewed Discharge - Discharge Clinical Impression: Syncope, near Hyperglycemia due to type 2 diabetes mellitus Qualifiers: Diabetes mellitus assisted insulin use: with assisted use Qualified Code(s): E11.65 - Type 2 diabetes mellitus with hyperglycemia Condition: Stable Disposition: HOME, SELF-CARE Instructions: Near Syncopal Episode ([facility]), Syncopal Episode ([facility]) Additional Instructions: See Dr. Brooks in follow up. Call in the morning. Follow your diabetic diet. Take your medicine as directed. Please return here for chest pain or shortness of breath or dizziness or other problems or concerns. Referrals: RADHA BROOKS MD [Primary Care Provider] - 07/21/20 I personally performed the services described in the documentation, reviewed and edited the documentation which was dictated to the scribe in my presence, and it accurately records my words and actions.
[2020-07-21 00:03] LABS: APPEARANCE,URINE CLEAR; BILIRUBIN,URINE NEGATIVE (NEGATIVE); COLOR,URINE YELLOW; GLUCOSE, URINE >=500 mg/dL (NEGATIVE); KETONES,URINE NEGATIVE (NEGATIVE); LEUKOCYTE ESTERASE,URINE NEGATIVE (NEGATIVE); NITRITE,URINE NEGATIVE (NEGATIVE); PROTEIN,URINE 100 mg/dL (NEGATIVE); UROBILINOGEN,URINE NEGATIVE mg/dL (<2.0)
[2020-07-21] MEDS ORDERED: INSULIN REG, HUMAN 100 UNIT/ML 3 ML VIAL (PYX) SUBCUT ONE (00:20)
[2020-07-21 01:32] VITALS: BP 152/98
--- NOTE | 2020-07-21 17:47 | EKG REPORT ---
SEVERITY:- ABNORMAL ECG - SINUS RHYTHM PROBABLE LEFT ATRIAL ABNORMALITY RIGHT BUNDLE BRANCH BLOCK PROBABLE INFERIOR INFARCT, AGE INDETERMINATE : Confirmed by: Emerson Joe MD 21-Jul-2020 17:46:55
== END 2020-07-21 01:44 | disposition home or self-care (01) ==
LOC: ER 20:21
DX: R55 Syncope and collapse (principal); E11.65 Type 2 diabetes mellitus with hyperglycemia; R42 Dizziness and giddiness; M25.511 Pain in right shoulder; W19.XXXA Unspecified fall, initial encounter; I48.91 Unspecified atrial fibrillation; E78.00 Pure hypercholesterolemia, unspecified; E03.9 Hypothyroidism, unspecified; I25.2 Old myocardial infarction; I11.0 Hypertensive heart disease with heart failure; I50.9 Heart failure, unspecified; Z91.14 Patient's other noncompliance with medication regimen; Z79.01 Long term (current) use of anticoagulants; Z79.899 Other long term (current) drug therapy
CPT/HCPCS: 93005; 99285; 36415; 82962; 85025; 85610; 80053; 81001; 84484; 73030; 70450; 93010; J1815 ×2

== ENCOUNTER 2020-07-21 09:08 | Day surgery (SDC) | payer OTHER, MEDICARE ==
[~2020-07-21 09:08] MED LIST changes: +DORZOLAMIDE HCL 2%/TIMOLOL MALEAT 0.5% OPH SOLN 10 ML OD PRN; +KETOROLAC TROMETHAMINE 0.45% 4 DROP/0.4 ML DROPERETTE OD PRN; -KETOROLAC TROMETHAMINE 0.45% 4 DROP/0.4 ML DROPERETTE OS PRN; +PREDNISOLONE ACETATE 1% OPH SUSP 5 ML OD PRN; +TRYPAN BLUE 0.06 % OPH SOLN 0.5 ML DISP.SYRIN ONE
[2020-07-21] MEDS ORDERED: ONDANSETRON HCL INJ/PF 4 MG/2 ML SDV ONE (09:39)
[2020-07-21] MEDS ORDERED: FENTANYL CITRATE INJ/PF 100 MCG/2 ML AMPUL ONE (09:40)
[2020-07-21] MEDS ORDERED: MIDAZOLAM 2 MG/2 ML INJ ONE (09:40)
[2020-07-21] MEDS: TETRACAINE HCL 0.5% OPH SOLN 4 ML OD PRN ×3 (09:54→10:36)
[2020-07-21] MEDS: BESIFLOXACIN HCL 0.6% OPH SUSP 5 ML BOTTLE OD PRN ×3 (09:55→10:57)
[2020-07-21] MEDS: TROPICAMIDE 1% OPH SOLN 15 ML OD PRN ×3 (09:55→10:19)
[2020-07-21] MEDS: CYCLOPENTOLATE 0.2%/PHENYLEPHRINE 1% OPH SOLN 2 ML OD PRN ×3 (09:55→10:19)
--- NOTE | 2020-07-21 12:10 | Operative Report ---
Operative Report[facility] Operative Report: DATE OF SURGERY: 07/21/2020 PREOPERATIVE DIAGNOSIS: Cataract, right eye POSTOPERATIVE DIAGNOSIS: Cataract, right eye OPERATION: Cataract extraction with insertion of an IOL of the right eye. Intraocular Lens Model: [18.5 SN 60 WF] Underwent surgery for difficulty seeing road signs SURGEON: Con Esparza MD ANESTHESIA: Topical PROCEDURE: After obtaining appropriate consent, the patient's right eye was prepped and draped in a sterile fashion as well as the surgeon in the sterile manner and cataract surgery was started. First a paracentesis blade was used to make a side-port incision. Viscoelastic was used to inflate the anterior chamber. Next a 2.4 mm incision was made with a 2.4 mm blade, clear corneal temporarily. A continuous capsulorrhexis was made using a cystotome and Utrata forceps. Following this hydrodissection was carried out to make the rj fully loose and mobile and it was rotated. Following this, a divide and conquer technique was used to phacoemulsify the rj. The remaining cortex was removed with an irrigation/aspiration. Provisc was instilled into the capsular bag to inflate the bag. The intraocular lens was placed. The remaining viscoelastic material was removed with irrigation/aspiration. Following this, the incision was found to be watertight. Besivance and Cosopt was instilled into the eye and a protective shield was placed over the eye. The patient was reurned to the postoperative recovery in a stable condition.
== END 2020-07-21 11:30 | disposition home or self-care (01) ==
LOC: SC 09:08
PROVIDERS: ATTEND Internal Medicine
DX: H25.89 Other age-related cataract (principal); H57.03 Miosis; Z96.1 Presence of intraocular lens; E11.36 Type 2 diabetes mellitus with diabetic cataract; I10 Essential (primary) hypertension; E78.00 Pure hypercholesterolemia, unspecified; E03.9 Hypothyroidism, unspecified; G47.33 Obstructive sleep apnea (adult) (pediatric); Z86.73 Personal history of transient ischemic attack (TIA), and cerebral infarction without residual deficits; Z79.02 Long term (current) use of antithrombotics/antiplatelets; Z79.899 Other long term (current) drug therapy; Z79.84 Long term (current) use of oral hypoglycemic drugs
CPT/HCPCS: 66984; 82962; V2632; J2250; J3490 ×2; J0171; J2405; J3010